=== PATIENT | female | born 1945 | race African-American/Black ===

== ENCOUNTER 2019-12-27 16:03 | Emergency (ER) | payer MEDICARE, MEDICAID ==
[~2019-12-27] VITALS: Ht 160 cm; Wt 95.7 kg
[~2019-12-27 16:03] MED LIST: ACET325T9 PO; ALBU2.5V8 INH; APIX2.5T PO; APIX5TAB PO; ASPI81TA59 PO; ATORVASTATIN CA80 MG PO; BUDE10.2 IH; CEFP200T PO; CITA20TA9 PO; DILT120C99 PO; ENAL20TA PO; FAMO20TA5 PO; FURO40TA4 PO; FURO80TA72 PO; GABA300C18 PO; GABA600T7 PO; HYDR-2868 PO; HYDR-3164 PO; INSU100C SQ; INSU100I51 SQ; INSU100V11 SQ; ISOS1TAB2 PO; ISOS30TA19 PO; LISI10TA2 PO; LOSA100T14 PO; METO-247 PO; METO50TA6 PO; NICO1PAT21 TP; NPH,100V SQ; ONDA4TAB7 PO; SUCR1TAB35 PO; VIT1TABL71 PO
[2019-12-27 16:48] LABS: BASO % 1 % (0-3); EOS % 1 % (0-3); HEMATOCRIT 40.5 % (36.0-47.0); HEMOGLOBIN 13.3 g/dL (12.0-15.5); LYMPH # 1.7 x10^3/uL (1.0-4.8); LYMPH % 33 % (24-48); MEAN CORPUSCULAR HEMOGLOBIN 28 pg (25-35); MEAN CORPUSCULAR HGB CONC 33 g/dL (31-37); MEAN CORPUSCULAR VOLUME 85 fL (79-100); MONO # 0.8 x10^3/uL (0.0-1.1); MONO % 15 % (0-9); NEUT # 2.6 x10^3/uL (1.8-7.7); NEUT % 51 % (31-73); PLATELET COUNT 253 x10^3/uL (140-400); RED BLOOD COUNT 4.76 x10^6/uL (3.50-5.40); RED CELL DISTRIBUTION WIDTH 17.8 % (11.5-14.5); WHITE BLOOD COUNT 5.2 x10^3/uL (4.0-11.0)
[2019-12-27 17:05] LABS: CALCIUM 8.9 mg/dL (8.5-10.1); CREATININE 2.1 mg/dL (0.6-1.0); GFR 27.9; POTASSIUM 4.4 mmol/L (3.5-5.1)
--- NOTE | 2019-12-27 17:08 | RAD ---
Exam: CT head INDICATION: Confusion TECHNIQUE: Sequential axial images through the head were obtained without the administration of IV contrast. Comparisons: 09/12/2019 FINDINGS: No focal parenchymal lesion or hemorrhage is identified. There is no midline shift or sulcal effacement. Hypodensity in the periventricular white matter not significant changed from the prior exam. No acute vascular territory infarction is identified. Gates-white distinction is preserved. The ventricular system is within normal limits without compression hydrocephalus. The basal cisterns are well maintained. The visualized portions of the paranasal sinuses and mastoid air cells are well-pneumatized. No acute fractures. IMPRESSION: No acute intracranial abnormality. Moderate chronic small vessel ischemic change. Exposure: One or more of the following in the visualized dose reduction techniques were utilized for this examination: 1. Automated exposure control 2. Adjustment of the MA and/or KV according to patient size Use of iterative of reconstructive technique Electronically signed by: Ke Felton MD (12/27/2019 5:04 PM) [id number]
--- NOTE | 2019-12-27 17:09 | RAD ---
Exam: Chest one view INDICATION: Confusion TECHNIQUE: Frontal view of the chest Comparisons: 09/12/2019 FINDINGS: Sternotomy wires are noted. Heart is enlarged. Pulmonary vessels are within normal limits. Hazy opacities lungs bilaterally. No pleural effusion. IMPRESSION: Findings likely related to mild pulmonary edema. This is mildly improved when compared to prior study. Electronically signed by: Ke Felton MD (12/27/2019 5:06 PM) [id number]
[2019-12-27 17:10] LABS: ALBUMIN 3.3 g/dL (3.4-5.0); MAGNESIUM 1.9 mg/dL (1.8-2.4); TOTAL BILIRUBIN 0.7 mg/dL (0.2-1.0); TOTAL PROTEIN 6.6 g/dL (6.4-8.2)
[2019-12-27 17:14] LABS: CREATINE KINASE 57 U/L (26-192)
[2019-12-27 18:32] LABS: BILIRUBIN,URINE SMALL (NEG); CLARITY,URINE CLOUDY; COLOR,URINE AMBER; NITRITE,URINE NEGATIVE (NEG); PH,URINE 5.5 (<5.0-8.0); PROTEIN,URINE >=300 mg/dL (NEG-TRACE)
[2019-12-27 18:45] LABS: BACTERIA,URINE MANY /HPF (0-FEW); SQUAMOUS EPITHELIAL CELL,UR FEW /LPF
--- NOTE | 2019-12-27 18:49 | PHYS DOC ---
Past Medical History Past Medical History: A-Fib, CHF, COPD, Diabetes-Type II, Hypertension, Renal Failure, Other Additional Past Medical Histor: ESRD Past Surgical History: Other Additional Past Surgical Histo: TEMP DIALYSIS CATH R CHEST, LEFT ARM FISTULA Smoking Status: Former Smoker Alcohol Use: None Drug Use: None General Adult EDM: Chief Complaint: ALTERED MENTAL STATUS HPI: HPI: Patient is a 74 year old F who is brought in to our ER today for altered mental status. Per dialysis center pt arrived today confused and after her dialysis continued to show some confusion which they thought was abnormal so they called EMS. On arrival to ER pt is refusing to allow the nurse to start an IV and states she is fine. She is asking us to call her son who is her DPOA. Of note pt did not remember that she had just had dialysis. RNSheyla, called and spoke with pts son Steve, who reports that confusion is not uncommon for [place] and that he would like us to check things over but that this happens sometimes. Review of Systems: Review of Systems: Constitutional: Denies fever or chills. [] Eyes: Denies change in visual acuity. [] HENT: Denies nasal congestion or sore throat. [] Respiratory: Denies cough or shortness of breath. [] Cardiovascular: Denies chest pain or edema. [] GI: Denies abdominal pain, nausea, vomiting, bloody stools or diarrhea. [] : Denies dysuria. [] Musculoskeletal: Denies back pain or joint pain. [] Integument: Denies rash. [] Neurologic: Denies headache, focal weakness or sensory changes. [] Endocrine: Denies polyuria or polydipsia. [] Lymphatic: Denies swollen glands. [] Psychiatric: Denies depression or anxiety. [] Heart Score: Risk Factors: Risk Factors: DM, Current or recent (<one month) smoker, HTN, HLP, family history of CAD, obesity. Risk Scores: Score 0 - 3: 2.5% MACE over next 6 weeks - Discharge Home Score 4 - 6: 20.3% MACE over next 6 weeks - Admit for Clinical Observation Score 7 - 10: 72.7% MACE over next 6 weeks - Early Invasive Strategies Allergies: Allergies: Allergies Coded Allergies Type Severity Reaction Last Updated Verified warfarin Allergy Intermediate 01/13/19 Yes Physical Exam: PE: Constitutional: Well developed, well nourished, no acute distress, non-toxic appearance. [] HENT: Normocephalic, atraumatic, bilateral external ears normal, oropharynx moist, no oral exudates, nose normal. [] Eyes: PERRLA, EOMI, conjunctiva normal, no discharge. [] Neck: Normal range of motion, no tenderness, supple, no stridor. [] Cardiovascular:Heart rate regular rhythm, no murmur [] Lungs & Thorax: Bilateral breath sounds clear to auscultation [] Abdomen: Bowel sounds normal, soft, no tenderness, no masses, no pulsatile masses. [] Skin: Warm, dry, no erythema, no rash. [] Back: No tenderness, no CVA tenderness. [] Extremities: No tenderness, no cyanosis, no clubbing, ROM intact, no edema. [] Neurologic: Alert and oriented X 3, normal motor function, normal sensory function, no focal deficits noted. [] Psychologic: Affect normal, judgement normal, mood normal. [] Current Patient Data: Labs: Laboratory Tests Test 12/27/19 16:40 White Blood Count 5.2 x10^3/uL (4.0-11.0) Red Blood Count 4.76 x10^6/uL (3.50-5.40) Hemoglobin 13.3 g/dL (12.0-15.5) Hematocrit 40.5 % (36.0-47.0) Mean Corpuscular Volume 85 fL (79-100) Mean Corpuscular Hemoglobin 28 pg (25-35) Mean Corpuscular Hemoglobin Concent 33 g/dL (31-37) Red Cell Distribution Width 17.8 % (11.5-14.5) H Platelet Count 253 x10^3/uL (140-400) Neutrophils (%) (Auto) 51 % (31-73) Lymphocytes (%) (Auto) 33 % (24-48) Monocytes (%) (Auto) 15 % (0-9) H Eosinophils (%) (Auto) 1 % (0-3) Basophils (%) (Auto) 1 % (0-3) Neutrophils # (Auto) 2.6 x10^3/uL (1.8-7.7) Lymphocytes # (Auto) 1.7 x10^3/uL (1.0-4.8) Monocytes # (Auto) 0.8 x10^3/uL (0.0-1.1) Eosinophils # (Auto) 0.0 x10^3/uL (0.0-0.7) Basophils # (Auto) 0.0 x10^3/uL (0.0-0.2) Sodium Level 138 mmol/L (136-145) Potassium Level 4.4 mmol/L (3.5-5.1) Chloride Level 100 mmol/L (98-107) Carbon Dioxide Level 26 mmol/L (21-32) Anion Gap 12 (6-14) Blood Urea Nitrogen 17 mg/dL (7-20) Creatinine 2.1 mg/dL (0.6-1.0) H Estimated GFR (Cockcroft-Gault) 27.9 BUN/Creatinine Ratio 8 (6-20) Glucose Level 125 mg/dL (70-99) H Calcium Level 8.9 mg/dL (8.5-10.1) Magnesium Level 1.9 mg/dL (1.8-2.4) Total Bilirubin 0.7 mg/dL (0.2-1.0) Aspartate Amino Transferase (AST) 25 U/L (15-37) Alanine Aminotransferase (ALT) 24 U/L (14-59) Alkaline Phosphatase 118 U/L (46-116) H Creatine Kinase 57 U/L (26-192) Creatine Kinase MB (Mass) 1.1 ng/mL (0.0-3.6) Creatine Kinase MB Relative Index % (0-4) Troponin I Quantitative < 0.017 ng/mL (0.000-0.055) BR-Gpb-W-Type Natriuretic Peptide > 33391 pg/mL (0-124) H Total Protein 6.6 g/dL (6.4-8.2) Albumin 3.3 g/dL (3.4-5.0) L Albumin/Globulin Ratio 1.0 (1.0-1.7) Laboratory Tests 12/27/19 16:40 Laboratory Tests 12/27/19 16:40 Vital Signs: Vital Signs Date Time Temp Pulse Resp B/P (MAP) Pulse Ox O2 Delivery O2 Flow Rate FiO2 12/27/19 16:19 98.3 94 18 192/109 (136) 99 Room Air 98.3 EKG: EKG: [] Radiology/Procedures: Radiology/Procedures: [] Course & Med Decision Making: Course & Med Decision Making Pertinent Labs and Imaging studies reviewed. (See chart for details) Pt's labs and imaging reassuring. She continues to be pleasantly confused but not entirely sure this is different from baseline based on her son Steve's report. I did call Steve and left a voicemail at [phone] letting him know I would like to go over the test results and possibly get her home. Will wait for his call back since he is her DPOA. Pt has very mild UTI, but doubt this is of clinical significance. Dragon Disclaimer: Dragon Disclaimer: This electronic medical record was generated, in whole or in part, using a voice recognition dictation system. Departure Departure Impression: Primary Impression: UTI (urinary tract infection) Additional Impression: Confusion Disposition: 01 HOME, SELF-CARE Condition: IMPROVED Referrals: FABIENNE CALDERON (PCP) Patient Instructions: Confusion, Urinary Tract Infection, [id number] Additional Instructions: The tests done today in the ER were reassuring. There is a mild urinary tract infection that we will treat. We spoke with pt's son, Steve, who is in agreement with patient going back home to her facility per her request. Please have her return with any worsening symptoms. Scripts Cephalexin (KEFLEX) 500 Mg Capsule 1 CAP PO BID for 5 Days, #10 CAP 0 Refills Prov: BALDO KLEIN 12/27/19 BALDO KLEIN Dec 27, 2019 18:49
[2019-12-27] MEDS ORDERED: cefTRIAXone IV Push 1 GM VIAL. IVP ONE (19:00)
[2019-12-27] MEDS ORDERED: CEPH-264 PO (20:18)
[2019-12-27 22:30] VITALS: BP 164/100
--- NOTE | 2019-12-27 22:34 | EKG ---
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
== END 2019-12-27 22:44 | disposition home or self-care (01) ==
LOC: ER 16:03
DX: N39.0 Urinary tract infection, site not specified (principal); R41.82 Altered mental status, unspecified; I48.20 Chronic atrial fibrillation, unspecified; I13.2 Hypertensive heart and chronic kidney disease with heart failure and with stage 5 chronic kidney disease, or end stage renal disease; E11.22 Type 2 diabetes mellitus with diabetic chronic kidney disease; N18.6 End stage renal disease; I50.9 Heart failure, unspecified; Z87.891 Personal history of nicotine dependence; Z98.890 Other specified postprocedural states; Z88.8 Allergy status to other drugs, medicaments and biological substances
CPT/HCPCS: 36415; 70450; 71045; 80053; 81001; 82553; 83735; 83880; 84484; 85025; 87086; 93005; 96374; 99285; J0696

== ENCOUNTER 2019-12-29 11:20 | Inpatient (IN) | payer MEDICARE, MEDICAID ==
[~2019-12-29] VITALS: Ht 172.7 cm; Wt 82.1 kg
[~2019-12-29 11:20] MED LIST changes: +CEPH-264 PO; -ENAL20TA PO; +ENAL20TA10 PO
[2019-12-29 11:43] LABS: BASO % 0 % (0-3); EOS % 0 % (0-3); HEMATOCRIT 40.9 % (36.0-47.0); HEMOGLOBIN 13.4 g/dL (12.0-15.5); LYMPH # 0.9 x10^3/uL (1.0-4.8); LYMPH % 14 % (24-48); MEAN CORPUSCULAR HEMOGLOBIN 28 pg (25-35); MEAN CORPUSCULAR HGB CONC 33 g/dL (31-37); MEAN CORPUSCULAR VOLUME 85 fL (79-100); MONO # 0.6 x10^3/uL (0.0-1.1); MONO % 10 % (0-9); NEUT # 4.5 x10^3/uL (1.8-7.7); NEUT % 75 % (31-73); PLATELET COUNT 267 x10^3/uL (140-400); RED CELL DISTRIBUTION WIDTH 17.7 % (11.5-14.5)
--- NOTE | 2019-12-29 11:46 | PHYS DOC ---
Past Medical History Past Medical History: A-Fib, CHF, COPD, Diabetes-Type II, Hypertension, Renal Failure, Other Additional Past Medical Histor: ESRD Past Surgical History: Other Additional Past Surgical Histo: TEMP DIALYSIS CATH R CHEST, LEFT ARM FISTULA Smoking Status: Former Smoker Alcohol Use: None Drug Use: None General Adult EDM: Chief Complaint: ALTERED MENTAL STATUS HPI: HPI: Patient is a 74 year old female who presents with here per EMS by medical [facility] who states that after patient's December 26 visit she remains confused and altered. EMS who run the patient frequently in the nurses here in the ED who had the patient on December 26 states that this is her baseline. On December 26 she was evaluated for altered mental status and found to have a UTI. Her CT head and c hest x-ray showed no acute findings. Patient does get dialysis on Tuesdays, and Saturdays. Upon the [employer]ISHABLE [employer]REIGHT INSPECTOR that saw her on December 26 and nursing staff that spoke to the son the son states that this is her normal baseline and that she tends to get confused from time to time but this is normal for her. Patient seemed to be talking to nursing staff although she was only oriented to herself, today she does not speak but looks at me and follows me around the room. Patient was discharged home with Keflex. The medical [facility] states that she has not further decline but she is still acting the same as they sent her on December 26. Patient has a history of end-stage renal disease, cellulitis, renal dialysis, generalized weakness, cognitive communication deficit, COPD, atrial fib, diabetes, CHF, heart disease, hyperlipidemia, depression, encephalopathy, hypertension, UTI. Patient is resting comfortably in the bed and is alert. Review of Systems: Review of Systems: Constitutional: Denies fever or chills. [] Eyes: Denies change in visual acuity. [] HENT: Denies nasal congestion or sore throat. [] Respiratory: Denies cough or shortness of breath. [] Cardiovascular: Denies chest pain or edema. [] GI: Denies abdominal pain, nausea, vomiting, bloody stools or diarrhea. [] : Denies dysuria. [] Musculoskeletal: Denies back pain or joint pain. [] Integument: Denies rash. [] Neurologic: Denies headache, focal weakness or sensory changes. AMS [] Endocrine: Denies polyuria or polydipsia. [] Lymphatic: Denies swollen glands. [] Psychiatric: Denies depression or anxiety. [] Heart Score: Risk Factors: Risk Factors: DM, Current or recent (<one month) smoker, HTN, HLP, family history of CAD, obesity. Risk Scores: Score 0 - 3: 2.5% MACE over next 6 weeks - Discharge Home Score 4 - 6: 20.3% MACE over next 6 weeks - Admit for Clinical Observation Score 7 - 10: 72.7% MACE over next 6 weeks - Early Invasive Strategies Allergies: Allergies: Allergies Coded Allergies Type Severity Reaction Last Updated Verified warfarin Allergy Intermediate 01/13/19 Yes Physical Exam: PE: Constitutional: Well developed, well nourished, no acute distress, non-toxic appearance. [] HENT: Normocephalic, atraumatic, bilateral external ears normal, oropharynx moist, no oral exudates, nose normal. [] Eyes: PERRLA, EOMI, conjunctiva normal, no discharge. [] Neck: Normal range of motion, no tenderness, supple, no stridor. [] Cardiovascular:Heart rate regular rhythm, no murmur [] Lungs & Thorax: Bilateral breath sounds clear to auscultation [] Abdomen: Bowel sounds normal, soft, no tenderness, no masses, no pulsatile masses. [] Skin: Warm, dry, no erythema, no rash. [] Back: No tenderness, no CVA tenderness. [] Extremities: No tenderness, no cyanosis, no clubbing, ROM intact, no edema. [] Neurologic: Alert and oriented X 1, normal motor function, normal sensory function, no focal deficits noted. [] Psychologic: Affect normal, judgement normal, mood normal. [] EKG: EK and read by Dr Bhagat as IRREGULAR RHYTHM and no STEMI[] Radiology/Procedures: Radiology/Procedures: [] Impression: [facility] [address] [place], [place] [id number] IMAGING REPORT Signed PATIENT: MARK HERNÁNDEZ ACCOUNT: [id number] : 1945 LOCATION: ER AGE: 74 SEX: F EXAM STATUS: REG ER ORD. 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 Mild prominent appearing bilateral interstitial lung markings likely mild congestive changes similar to prior exam. Sternotomy wires identified. IMPRESSION: 1. Mild congestive changes unchanged since prior exam. Electronically signed by: Bud Zepeda MD (12/29/2019 12:13 PM) [id number] DICTATED and SIGNED BY: BUD ZEPEDA MD DATE: 12/29/19 1213 Course & Med Decision Making: Course & Med Decision Making Pertinent Labs and Imaging studies reviewed. (See chart for details) No extremity edema lungs are clear to auscultation all lobes. Vital signs within normal limits. Afebrile. See HPI. I will reevaluate the patient and then DPOA. With palpation over chest and abdomen there is no pain response from the patient. PERRLA. Patient's troponin is elevated at 0.068, BUN is 41 and creatinine is 4.1, potassium 5.5. These are all increases from her visit on December 26. Chest x-ray is on changed with some mild cardiovascular crowding. I have spoken to Dr Gonzales and patient is admitted and will receive dialysis. Patient is admitted to Dr Adams. [] Shelley Disclaimer: Shelley Disclaimer: This electronic medical record was generated, in whole or in part, using a voice recognition dictation system. Departure Departure Impression: Primary Impression: Acute on chronic renal failure Qualified Codes: N17.9 - Acute kidney failure, unspecified; N18.9 - Chronic kidney disease, unspecified Additional Impression: AMS (altered mental status) Qualified Codes: R41.82 - Altered mental status, unspecified Disposition: ADMITTED INPATIENT Admitting Physician: HIMS Condition: STABLE Referrals: FABIENNE CALDERON (PCP) Justicifation of Admission Dx: Justifications for Admission: Justification of Admission Dx: Yes (ams, renal failure) JENNIFFER LÓPEZ APRN Dec 29, 2019 11:46
[2019-12-29 11:51] LABS: PROTHROMBIN TIME PATIENT 18.7 SEC (11.7-14.0)
[2019-12-29 11:53] LABS: CALCIUM 9.1 mg/dL (8.5-10.1); CREATININE 4.1 mg/dL (0.6-1.0); GFR 12.9; POTASSIUM 5.5 mmol/L (3.5-5.1)
[2019-12-29 11:58] LABS: ALBUMIN 3.1 g/dL (3.4-5.0); ALBUMIN/GLOBULIN RATIO 0.9 (1.0-1.7); TOTAL BILIRUBIN 1.4 mg/dL (0.2-1.0); TOTAL PROTEIN 6.7 g/dL (6.4-8.2)
[2019-12-29 12:06] LABS: COLOR,URINE BROWN
[2019-12-29 12:07] LABS: CLARITY,URINE TURBID
[2019-12-29 12:12] LABS: BACTERIA,URINE MANY /HPF (0-FEW); SQUAMOUS EPITHELIAL CELL,UR MOD /LPF; WBC,URINE TNTC /HPF (0-4)
--- NOTE | 2019-12-29 12:16 | RAD ---
EXAM: CHEST 1 VIEW History: Altered mental status COMPARISON: 12/27/2019 TECHNIQUE: Single portable radiograph of the chest FINDINGS: Moderate cardiomegaly. Mild prominent appearing bilateral interstitial lung markings likely mild congestive changes similar to prior exam. Sternotomy wires identified. IMPRESSION: 1. Mild congestive changes unchanged since prior exam. Electronically signed by: Bud Zepeda MD (12/29/2019 12:13 PM) [id number]
[2019-12-29] MEDS ORDERED: cefTRIAXone IV Push 1 GM VIAL. IVP ONE (13:00)
[2019-12-29] MEDS ORDERED: IV NORMAL SALINE 1000ML BAG 1,000 ML IV PRN ×2 (14:54)
[2019-12-29] MEDS ORDERED: DIALYSIS PATIENT. MC PRN ×2 (15:00)
[2019-12-29] MEDS ORDERED: ALBUMIN HUMAN 25% 200 ML IV PRN (15:00)
[2019-12-29] MEDS ORDERED: APIX2.5T PO ×2 (16:43)
[2019-12-29] MEDS ORDERED: METO-247 PO (16:43)
[2019-12-29] MEDS ORDERED: ASPI-630 PO (16:43)
[2019-12-29] MEDS ORDERED: ISOS1TAB2 PO ×2 (16:43)
--- NOTE | 2019-12-29 18:02 | HP ---
ADMIT DATE: 12/29/2019 CHIEF COMPLAINT: Mental status change. HISTORY OF PRESENT ILLNESS: The patient is a pleasant 74-year-old female who has been on dialysis for about a year. She resides at [facility]. Apparently, she developed mental status change. She has been noted to have UTI in the recent past and today, her urine is showing too numerous to count white cells. She also has an INR of 1.6 and a potassium of 5.5, BUN of 41, and creatinine of 4.1. Her BNP level of 35,000. We are going to admit the patient and get her dialyzed and consult Nephrology and Cardiology. PAST MEDICAL HISTORY: End-stage renal disease, CHF, AFib, diabetes, hypertension, temporary dialysis catheter, left arm fistula, previous tobacco abuse, chronic anticoagulation. ALLERGIES: COUMADIN. FAMILY HISTORY: Diabetes. SOCIAL HISTORY: I think she lives in a long-term. She does not drink, smoke or take drugs. MEDICATIONS: Reviewed, please refer to the MRAD. REVIEW OF SYSTEMS: Unable to obtain. PHYSICAL EXAMINATION: VITALS: Within normal limits and are stable. GENERAL: No apparent distress. Alert and oriented. HEENT: Normal cephalic atraumatic, external auditory canals are patent EYES: Extraocular muscles are intact, pupils are equally round and reactive to light and accommodation MUSCULOSKELETAL: Well developed, well nourished, good range of motion ENDOCRINE: No thyromegaly was palpated LYMPHATICS: No cervical chain or axillary nodes were noted HEMATOPOIETIC: No bruising NECK: Supple, no JVD, no thyromegaly was noted. LUNGS: Clear to auscultation in all lung gama without rhonchi or wheezing. HEART: RRR, S1, S2 present. Peripheral pulses intact, no obvious murmurs were noted. ABDOMEN: Soft, nontender. Positive bowel sounds no organomegaly, normal bowel sounds. EXTREMITIES: Without any cyanosis, clubbing, or edema. Pedal pulses intact, Homans sign is negative. NEUROLOGIC: She is obtunded. PSYCHIATRIC: Normal affect, normal mood. Stable. SKIN: No ulcerations or rashes, good skin turgor, no jaundice. VASCULAR: Good capillary refill, neurovascular bundle appears to be intact. ASSESSMENT AND PLAN: Mental status change, suspect metabolic encephalopathy with acute on chronic systolic and diastolic heart failure, chronic renal failure. We will give her IV antibiotics. Consult Nephrology. Consult Cardiology. Consult Infectious Disease. Home meds. DVT prophylaxis. Full code. Prognosis guarded. GEORGIE VARMA DO DR: HARSHAL/david JOB#: [id number] / [id number]
[2019-12-29 19:10] VITALS: BP 165/91
[2019-12-29] MEDS: AMINO AC 3%/ELECTROLYTE/GLYCER 1,000 ML IV SCH (19:55)
--- NOTE | 2019-12-29 21:33 | PDOC2 ---
CONSULT Date of Consult Date of Consult DATE: 12/29/19 TIME: 1300 Source Source: Chart review History of Present Illness Reason for Visit: Pt seen in the ER - History obtained from ER provider 07/31 to confusion AMS(?baseline) Patient is a 74 year old female with ESR , cognitive communication deficit, COPD, atrial fib, diabetes, CHF, heart disease, encephalopathy who presented per EMS from [facility] with confusion and altered MS-since seen on December 26 . On December 26 she was evaluated for altered mental status and found to have a UTI. Patient was discharged home with Keflex.In the ER CT head and chest x-ray showed no acute findings.. The [facility] states that she has no further decline but she is still acting the same as they sent her on December 26.She appears comfortable with eyes closed , No shortness of breath . Past Medical History Cardiovascular: AFIB, CAD, CHF, HTN, Hyperlipidemia Pulmonary: Asthma, Bronchitis, COPD, Pneumonia, Other CENTRAL NERVOUS SYSTEM: TIA GI: Other Heme/Onc: Anemia NOS Hepatobiliary: No pertinent hx Psych: Anxiety, Depression Musculoskeletal: Osteoarthritis Rheumatologic: No pertinent hx Infectious disease: Other Renal/: Chronic renal insuff, Urinary Incontinence Endocrine: Diabetes Past Surgical History Past Surgical History: CABG, Hysterectomy Family History Family History: Coronary Artery Disease Social History ALCOHOL: none Drugs: None Lives: Snf Current Problem List Problem List Problems Medical Problems: (1) Acute on chronic renal failure Status: Acute (2) AMS (altered mental status) Status: Acute Current Medications Current Medications Current Medications Ceftriaxone Sodium (Rocephin) 1 gm 1X ONCE IVP Last administered on 12/29/19at 13:00; Start 12/29/19 at 13:00; Stop 12/29/19 at 13:01; Status DC Sodium Chloride 1,000 ml @ 1,000 mls/hr Q1H PRN IV hypotension; Start 12/29/19 at 14:54; Stop 12/29/19 at 20:53; Status DC Albumin Human 200 ml @ 200 mls/hr 1X PRN PRN IV Hypotension; Start 12/29/19 at 15:00; Stop 12/29/19 at 20:59; Status DC Sodium Chloride 1,000 ml @ 400 mls/hr Q2H30M PRN IV PATENCY; Start 12/29/19 at 14:54; Stop 12/30/19 at 02:53 Info (PHARMACY MONITORING -- do not chart) 1 each PRN DAILY PRN MC SEE C OMMENTS; Start 12/29/19 at 15:00; Status UNV Info (PHARMACY MONITORING -- do not chart) 1 each PRN DAILY PRN MC SEE COMMENTS; Start 12/29/19 at 15:00 Amino Acids/ Glycerin/ Electrolytes 1,000 ml @ 80 mls/hr [id number] IV Last administered on 12/29/19at 19:55; Start 12/29/19 at 20:00 Active Scripts Active Keflex (Cephalexin) 500 Mg Capsule 1 Cap PO BID 5 Days Reported Bidil Tablet (Isosorb Dinit/Hydralazine Hcl) 1 Each Tablet 1 Each PO SUMOWEFR Bidil Tablet (Isosorb Dinit/Hydralazine Hcl) 1 Each Tablet 1 Each PO HS Metoprolol Succinate ( Xl ) (Metoprolol Succinate) 100 Mg Tab.er.24h 1 Tab PO HS Eliquis (Apixaban) 2.5 Mg Tablet 2.5 Mg PO QMWF Eliquis (Apixaban) 2.5 Mg Tablet 2.5 Mg PO HS Aspirin 81 Mg Tab.chew 1 Tab PO HS Isosorbide Dinitrate 30 Mg Tablet 20 Mg PO TID Hydralazine Hcl 25 Mg Tablet 37.5 Mg PO TID Lisinopril 10 Mg Tablet 1 Tab PO DAILY Famotidine 20 Mg Tablet 20 Mg PO QODAY Take at bedtime every other day. Next dose: 09/22/2019 Gabapentin (Gabapentin) 300 Mg Capsule 300 Mg PO QTUTHSA Take after dialysis [place] 5-325 Tablet (Acetaminophen/Hydrocodone Bitart) 1 Each Tablet 1 Tab PO Q6HRS Novolin N Flexpen (Insulin NPH Human Isophane) 100 Unit/1 Ml Insuln.pen 10 Unit SQ BID Carafate (Sucralfate) 1 Gm Tablet 1 Tab PO QID 30 Days Children's Aspirin (Aspirin) 81 Mg Tab.chew 81 Mg PO DAILY Atorvastatin Calcium 80 Mg Tablet 1 Tab PO HS Celexa (Citalopram Hydrobromide) 20 Mg Tablet 1 Tab PO DAILY [facility] Rx Tablet (Vit B Cmplx 3/Fa/Vit C/Biotin) 1 Each Tablet 1 Each PO DAILY Symbicort 160-4.5 Mcg Inhaler (Budesonide/Formoterol Fumarate) 10.2 Gm Hfa.aer.ad 2 Puff IH BID Allergies Allergies: Coded Allergies: warfarin (Verified Allergy, Intermediate, 01/13/19) ROS Review of System Unable to obtain 2/2 AMS/baseline encephalopathy Physical Exam Physical Exam GENERAL: NAD HEENT: OM moist NECK: Supple, no JVD. LUNGS: Clear bilaterally. Diminished breath sounds at the bases. HEART: S1, S2 Systolic murmur at left sternal border. ABDOMEN: Soft, EXTREMITIES: No LE edema NEUROLOGIC: AMS No Yin Vital Signs Vital Signs Date Time Temp Pulse Resp B/P (MAP) Pulse Ox O2 Delivery O2 Flow Rate FiO2 12/29/19 19:10 98.3 79 16 165/91 (115) 100 Nasal Cannula 2.0 98.3 Assessment & Plan ESRD - On HD TTS Dialysis today , Discussed treament plan with Dn UTI- treatment per primary Mental status change- suspect metabolic encephalopathy Chronic systolic and diastolic heart failure- currently compensated clinically Anemia, chronic- stable Labs Labs Laboratory Tests Test 12/29/19 11:32 12/29/19 11:50 12/29/19 20:12 White Blood Count 6.0 x10^3/uL (4.0-11.0) Red Blood Count 4.80 x10^6/uL (3.50-5.40) Hemoglobin 13.4 g/dL (12.0-15.5) Hematocrit 40.9 % (36.0-47.0) Mean Corpuscular Volume 85 fL (79-100) Mean Corpuscular Hemoglobin 28 pg (25-35) Mean Corpuscular Hemoglobin Concent 33 g/dL (31-37) Red Cell Distribution Width 17.7 % (11.5-14.5) Platelet Count 267 x10^3/uL (140-400) Neutrophils (%) (Auto) 75 % (31-73) Lymphocytes (%) (Auto) 14 % (24-48) Monocytes (%) (Auto) 10 % (0-9) Eosinophils (%) (Auto) 0 % (0-3) Basophils (%) (Auto) 0 % (0-3) Neutrophils # (Auto) 4.5 x10^3/uL (1.8-7.7) Lymphocytes # (Auto) 0.9 x10^3/uL (1.0-4.8) Monocytes # (Auto) 0.6 x10^3/uL (0.0-1.1) Eosinophils # (Auto) 0.0 x10^3/uL (0.0-0.7) Basophils # (Auto) 0.0 x10^3/uL (0.0-0.2) Prothrombin Time 18.7 SEC (11.7-14.0) Prothromb Time International Ratio 1.6 (0.8-1.1) Sodium Level 136 mmol/L (136-145) Potassium Level 5.5 mmol/L (3.5-5.1) Chloride Level 100 mmol/L (98-107) Carbon Dioxide Level 19 mmol/L (21-32) Anion Gap 17 (6-14) Blood Urea Nitrogen 41 mg/dL (7-20) Creatinine 4.1 mg/dL (0.6-1.0) Estimated GFR (Cockcroft-Gault) 12.9 BUN/Creatinine Ratio 10 (6-20) Glucose Level 221 mg/dL (70-99) Calcium Level 9.1 mg/dL (8.5-10.1) Total Bilirubin 1.4 mg/dL (0.2-1.0) Aspartate Amino Transf (AST/SGOT) 27 U/L (15-37) Alanine Aminotransferase (ALT/SGPT) 28 U/L (14-59) Alkaline Phosphatase 125 U/L (46-116) Troponin I Quantitative 0.068 ng/mL (0.000-0.055) TA-Lzq-J-Type Natriuretic Peptide > 24949 pg/mL (0-124) Total Protein 6.7 g/dL (6.4-8.2) Albumin 3.1 g/dL (3.4-5.0) Albumin/Globulin Ratio 0.9 (1.0-1.7) Urine Collection Type Unknown Urine Color Brown Urine Clarity Turbid Urine pH (<5.0-8.0) Urine Specific [place] (1.000-1.030) Urine Protein mg/dL (NEG-TRACE) Urine Glucose (UA) mg/dL (NEG) Urine Ketones (Stick) mg/dL (NEG) Urine Blood (NEG) Urine Nitrite (NEG) Urine Bilirubin (NEG) Urine Urobilinogen Dipstick mg/dL (0.2 mg/dL) Urine Leukocyte Esterase (NEG) Urine RBC 3-5 /HPF (0-2) Urine WBC Tntc /HPF (0-4) Urine Squamous Epithelial Cells Mod /LPF Urine Bacteria Many /HPF (0-FEW) Glucose (Fingerstick) 156 mg/dL (70-99) Laboratory Tests Test 12/29/19 11:32 12/29/19 11:50 12/29/19 20:12 White Blood Count 6.0 x10^3/uL (4.0-11.0) Red Blood Count 4.80 x10^6/uL (3.50-5.40) Hemoglobin 13.4 g/dL (12.0-15.5) Hematocrit 40.9 % (36.0-47.0) Mean Corpuscular Volume 85 fL (79-100) Mean Corpuscular Hemoglobin 28 pg (25-35) Mean Corpuscular Hemoglobin Concent 33 g/dL (31-37) Red Cell Distribution Width 17.7 % (11.5-14.5) Platelet Count 267 x10^3/uL (140-400) Neutrophils (%) (Auto) 75 % (31-73) Lymphocytes (%) (Auto) 14 % (24-48) Monocytes (%) (Auto) 10 % (0-9) Eosinophils (%) (Auto) 0 % (0-3) Basophils (%) (Auto) 0 % (0-3) Neutrophils # (Auto) 4.5 x10^3/uL (1.8-7.7) Lymphocytes # (Auto) 0.9 x10^3/uL (1.0-4.8) Monocytes # (Auto) 0.6 x10^3/uL (0.0-1.1) Eosinophils # (Auto) 0.0 x10^3/uL (0.0-0.7) Basophils # (Auto) 0.0 x10^3/uL (0.0-0.2) Prothrombin Time 18.7 SEC (11.7-14.0) Prothromb Time International Ratio 1.6 (0.8-1.1) Sodium Level 136 mmol/L (136-145) Potassium Level 5.5 mmol/L (3.5-5.1) Chloride Level 100 mmol/L (98-107) Carbon Dioxide Level 19 mmol/L (21-32) Anion Gap 17 (6-14) Blood Urea Nitrogen 41 mg/dL (7-20) Creatinine 4.1 mg/dL (0.6-1.0) Estimated GFR (Cockcroft-Gault) 12.9 BUN/Creatinine Ratio 10 (6-20) Glucose Level 221 mg/dL (70-99) Calcium Level 9.1 mg/dL (8.5-10.1) Total Bilirubin 1.4 mg/dL (0.2-1.0) Aspartate Amino Transf (AST/SGOT) 27 U/L (15-37) Alanine Aminotransferase (ALT/SGPT) 28 U/L (14-59) Alkaline Phosphatase 125 U/L (46-116) Troponin I Quantitative 0.068 ng/mL (0.000-0.055) XK-Ttn-Q-Type Natriuretic Peptide > 02810 pg/mL (0-124) Total Protein 6.7 g/dL (6.4-8.2) Albumin 3.1 g/dL (3.4-5.0) Albumin/Globulin Ratio 0.9 (1.0-1.7) Urine Collection Type Unknown Urine Color Brown Urine Clarity Turbid Urine pH (<5.0-8.0) Urine Specific [place] (1.000-1.030) Urine Protein mg/dL (NEG-TRACE) Urine Glucose (UA) mg/dL (NEG) Urine Ketones (Stick) mg/dL (NEG) Urine Blood (NEG) Urine Nitrite (NEG) Urine Bilirubin (NEG) Urine Urobilinogen Dipstick mg/dL (0.2 mg/dL) Urine Leukocyte Esterase (NEG) Urine RBC 3-5 /HPF (0-2) Urine WBC Tntc /HPF (0-4) Urine Squamous Epithelial Cells Mod /LPF Urine Bacteria Many /HPF (0-FEW) Glucose (Fingerstick) 156 mg/dL (70-99) Review All relevant outside records, renal labs, imaging studies, telemetry/EKG's were reviewed. Images Images Moderate cardiomegaly. Mild prominent appearing bilateral interstitial lung markings likely mild congestive changes similar to prior exam. Sternotomy wires identified. IMPRESSION: 1. Mild congestive changes unchanged since prior exam. RAS LONG MD Dec 29, 2019 21:33
[2019-12-29 22:06] VITALS: BP 154/94
[2019-12-30 02:06] VITALS: BP 165/87
[2019-12-30] MEDS: AMINO AC 3%/ELECTROLYTE/GLYCER 1,000 ML IV SCH ×2 (06:39→23:02)
[2019-12-30 07:00] VITALS: BP 162/95
[2019-12-30 09:17] LABS: BASO # 0.1 x10^3/uL (0.0-0.2); BASO % 1 % (0-3); EOS % 0 % (0-3); HEMATOCRIT 40.5 % (36.0-47.0); HEMOGLOBIN 13.1 g/dL (12.0-15.5); LYMPH # 1.4 x10^3/uL (1.0-4.8); LYMPH % 22 % (24-48); MEAN CORPUSCULAR HEMOGLOBIN 28 pg (25-35); MEAN CORPUSCULAR HGB CONC 32 g/dL (31-37); MEAN CORPUSCULAR VOLUME 85 fL (79-100); MONO # 0.9 x10^3/uL (0.0-1.1); MONO % 14 % (0-9); NEUT # 4.1 x10^3/uL (1.8-7.7); NEUT % 63 % (31-73); PLATELET COUNT 235 x10^3/uL (140-400); RED BLOOD COUNT 4.75 x10^6/uL (3.50-5.40); RED CELL DISTRIBUTION WIDTH 18.1 % (11.5-14.5); WHITE BLOOD COUNT 6.5 x10^3/uL (4.0-11.0)
[2019-12-30 09:39] LABS: ALBUMIN 2.9 g/dL (3.4-5.0); ALBUMIN/GLOBULIN RATIO 0.9 (1.0-1.7); CREATININE 3.4 mg/dL (0.6-1.0); POTASSIUM 4.6 mmol/L (3.5-5.1); TOTAL BILIRUBIN 0.7 mg/dL (0.2-1.0)
--- NOTE | 2019-12-30 09:54 | PDOC ---
Infectious Disease Note Vital Sign Vital Signs Vital Signs Date Time Temp Pulse Resp B/P (MAP) Pulse Ox O2 Delivery O2 Flow Rate FiO2 12/30/19 07:00 98.0 93 16 162/95 (117) 99 Nasal Cannula 2.0 98.0 Labs Lab Laboratory Tests Test 12/29/19 11:32 12/29/19 11:50 12/29/19 20:12 12/30/19 00:27 White Blood Count 6.0 x10^3/uL (4.0-11.0) Red Blood Count 4.80 x10^6/uL (3.50-5.40) Hemoglobin 13.4 g/dL (12.0-15.5) Hematocrit 40.9 % (36.0-47.0) Mean Corpuscular Volume 85 fL (79-100) Mean Corpuscular Hemoglobin 28 pg (25-35) Mean Corpuscular Hemoglobin Concent 33 g/dL (31-37) Red Cell Distribution Width 17.7 % (11.5-14.5) Platelet Count 267 x10^3/uL (140-400) Neutrophils (%) (Auto) 75 % (31-73) Lymphocytes (%) (Auto) 14 % (24-48) Monocytes (%) (Auto) 10 % (0-9) Eosinophils (%) (Auto) 0 % (0-3) Basophils (%) (Auto) 0 % (0-3) Neutrophils # (Auto) 4.5 x10^3/uL (1.8-7.7) Lymphocytes # (Auto) 0.9 x10^3/uL (1.0-4.8) Monocytes # (Auto) 0.6 x10^3/uL (0.0-1.1) Eosinophils # (Auto) 0.0 x10^3/uL (0.0-0.7) Basophils # (Auto) 0.0 x10^3/uL (0.0-0.2) Prothrombin Time 18.7 SEC (11.7-14.0) Prothromb Time International Ratio 1.6 (0.8-1.1) Sodium Level 136 mmol/L (136-145) Potassium Level 5.5 mmol/L (3.5-5.1) Chloride Level 100 mmol/L (98-107) Carbon Dioxide Level 19 mmol/L (21-32) Anion Gap 17 (6-14) Blood Urea Nitrogen 41 mg/dL (7-20) Creatinine 4.1 mg/dL (0.6-1.0) Estimated GFR (Cockcroft-Gault) 12.9 BUN/Creatinine Ratio 10 (6-20) Glucose Level 221 mg/dL (70-99) Calcium Level 9.1 mg/dL (8.5-10.1) Total Bilirubin 1.4 mg/dL (0.2-1.0) Aspartate Amino Transf (AST/SGOT) 27 U/L (15-37) Alanine Aminotransferase (ALT/SGPT) 28 U/L (14-59) Alkaline Phosphatase 125 U/L (46-116) Troponin I Quantitative 0.068 ng/mL (0.000-0.055) IR-Hzq-V-Type Natriuretic Peptide > 70462 pg/mL (0-124) Total Protein 6.7 g/dL (6.4-8.2) Albumin 3.1 g/dL (3.4-5.0) Albumin/Globulin Ratio 0.9 (1.0-1.7) Urine Collection Type Unknown Urine Color Brown Urine Clarity Turbid Urine pH (<5.0-8.0) Urine Specific [place] (1.000-1.030) Urine Protein mg/dL (NEG-TRACE) Urine Glucose (UA) mg/dL (NEG) Urine Ketones (Stick) mg/dL (NEG) Urine Blood (NEG) Urine Nitrite (NEG) Urine Bilirubin (NEG) Urine Urobilinogen Dipstick mg/dL (0.2 mg/dL) Urine Leukocyte Esterase (NEG) Urine RBC 3-5 /HPF (0-2) Urine WBC Tntc /HPF (0-4) Urine Squamous Epithelial Cells Mod /LPF Urine Bacteria Many /HPF (0-FEW) Glucose (Fingerstick) 156 mg/dL (70-99) 187 mg/dL (70-99) Test 12/30/19 07:28 Glucose (Fingerstick) 181 mg/dL (70-99) Objective Assessment Encephalopathy. According to the records and nursing staff, patient is normally able to talk some and follow commands at baseline. She is know to have periods of confusion that are not unusual for her. E. coli UTI from 12/26. susceptibilities still pending. -Seen in ER here and given dose Rocephin and Rx Keflex CKD on HD via AV graft Bioprosthetic AVR Chronic CHF Chronic afib COPD Hypertension Cognitive communication deficits h/o E. coli (amp-R) in urine Plan Plan of Care Continue Rocephin for now f/u UC from 12/26. Susceptibilities still pending. Bedside swallow study underway Maintain aspiration precautions D/w nursing Thank you [id number] Encephalopathy improved - d/w nursing - she responded to me nodding she was ok. and she ate lunch well Cont Rocephin With Strep Bovis - she will need GI eval URINE CULTURE Preliminary Preliminary GREATER THAN 100,000 CFU/ML GRAM NEGATIVE RODS on 12/29/19 at 0945 FINAL ID= [ESCHERICHIA COLI] GREATER THAN 100,000 CFU/MLGRAM POSITIVE COCCI on 12/30/19 at 1337 FINAL ID= [STREP (BOVIS) GALLOLYTICUS] Testing Performed by: [address] [address] For Inquires, the Physician may contact the Microbiology department at [phone] ESCHERICHIA COLI STREP (BOVIS) GALLOLYTICUS ANTIMICROBIAL SUSCEPTIBILITY Preliminary Comment NEG NEVA 56 ESCHERICHIA COLI ANTIBIOTIC RESULT INTERPRETATION AMPICILLIN/SULBACTAM 16/8 I AMIKACIN <=16 S AMPICILLIN >16 R AMOXICILLIN/K CLAVULANATE <=8/4 S AZTREONAM <=4 S CEFTRIAXONE <=1 S CEFTAZIDIME <=1 S CEFOTAXIME <=2 S CEFOXITIN <=8 S CIPROFLOXACIN <=0.25 S CEFEPIME <=2 S CEFUROXIME <=4 S CEFTAZIDIME/AVIBACTAM <=4 S ERTAPENEM <=0.5 S NITROFURANTOIN <=32 S GENTAMICIN <=2 S LEVOFLOXACIN <=0.5 S MEROPENEM <=1 S PIPERACILLIN/TAZOBACTAM <=8 S CONTINUED ON NEXT PAGE RUN DATE: 12/30/19 [facility] *LIVE* PAGE 2 RUN TIME: 1343 Specimen Inquiry SPEC: [id number] PATIENT: MARK HERNÁNDEZ [id number] (Continued) Procedure Result --- --------- ANTIMICROBIAL SUSCEPTIBILITY Preliminary (continued) TRIMETHOPRIM/SULFAMETHOXAZOLE <=0.5/9.5 S TETRACYCLINE <=4 S TOBRAMYCIN <=2 S Unless otherwise specified, Testing Performed by: Attending Co-Sign Attending Co-Sign The patient was seen and interviewed as well as examined at the bedside. The chart was reviewed. The case was discussed. Agree with the plan of care. SUBLETTE,STUART C BILINGUAL MEDICAL RECEPTIONIST Dec 30, 2019 09:54 JOSEPH ELLIOTT MD Dec 30, 2019 15:07
[2019-12-30 10:50] VITALS: BP 168/97
[2019-12-30] MEDS ORDERED: LISINOPRIL 10 MG TABLET PO SCH (11:00)
[2019-12-30] MEDS: BUDESONIDE 0.5 MG/2 ML NEBU. NEB SCH ×2 (11:44→19:12)
[2019-12-30] MEDS: ALBUTEROL SULFATE 2.5 MG/3 ML NEBU. NEB SCH ×2 (11:44→19:12)
--- NOTE | 2019-12-30 12:11 | PDOC ---
SUBJECTIVE ROS Stable, awake, tracks, Non verbal OBJECTIVE Vital Signs Vital Signs Date Time Temp Pulse Resp B/P (MAP) Pulse Ox O2 Delivery O2 Flow Rate FiO2 12/30/19 11:47 96 Nasal Cannula 2.0 12/30/19 10:50 97.6 95 16 168/97 (120) 97.6 I & 0 Intake and Output 12/30/19 07:00 Intake Total 0 ml Balance 0 ml Intake Oral 0 ml # Voids 1 PHYSICAL EXAM Physical Exam GENERAL: NAD HEENT: OM moist NECK: Supple, no JVD. LUNGS: Clear bilaterally. Diminished breath sounds at the bases. HEART: S1, S2 Systolic murmur at left sternal border. ABDOMEN: Soft, EXTREMITIES: No LE edema NEUROLOGIC: AMS No Yin DIAGNOSIS/ASSESSMENT Assessment & Plan ESRD - On HD TTS Dialyzed yesterday, currently no indication UTI- E. coli UTI from 12/26.ID managing Mental status change-/encephalopathy According to the records, patient is normally able to talk some and follow commands at baseline and feed herself ,have periods of confusion Chronic systolic and diastolic heart failure- currently compensated clinically Anemia, chronic- stable Bioprosthetic AVR Chronic afib COPD- On O2 Hypertension- antihypertensives Cognitive communication deficits h COMMENT/RELEVANT DATA Meds Current Medications Medications (Trade) Dose Ordered Sig/Crsitine Start Time Stop Time Status Last Admin Dose Admin Acetaminophen/ Hydrocodone Bitart (Lortab 5/325) 1 tab Q6HRS 12/30/19 11:00 Albumin Human 200 ml @ 200 mls/hr 1X PRN PRN 12/29/19 15:00 12/29/19 20:59 DC Albuterol Sulfate (Ventolin Neb Soln) 2.5 mg Q6HRS 12/30/19 12:00 12/30/19 11:44 2.5 MG Amino Acids/ Glycerin/ Electrolytes 1,000 ml @ 80 mls/hr [id number] 12/29/19 20:00 12/30/19 06:39 80 MLS/HR Aspirin (Aspirin Chewable) 81 mg DAILY 12/30/19 10:00 Atorvastatin Calcium (Lipitor) 80 mg QHS 12/30/19 21:00 Budesonide (Pulmicort) 0.5 mg RTBID 12/30/19 11:00 12/30/19 11:44 0.5 MG Ceftriaxone Sodium (Rocephin) 1 gm Q24H 12/30/19 10:00 Citalopram Hydrobromide (CeleXA) 20 mg DAILY 12/30/19 10:00 Famotidine (Pepcid) 20 mg QODAY 12/30/19 10:00 Gabapentin (Neurontin) 300 mg TuThSa 12/31/19 09:00 Hydralazine HCl (Apresoline) 37.5 mg TID 12/30/19 10:00 Info (PHARMACY MONITORING -- do not chart) 1 each PRN DAILY PRN 12/29/19 15:00 Insulin Glargine (Lantus Syringe) 10 unit BID 12/30/19 11:00 Lactobacillus Rhamnosus (Culturelle) 1 cap BID 12/30/19 21:00 Lisinopril (Prinivil) 10 mg DAILY 12/30/19 11:00 Metoprolol Succinate (Toprol Xl) 100 mg HS 12/30/19 21:00 Non-Formulary Medication (Budesonide/ Formoterol Fumarate (Symbicort 160-4.5 Mcg Inhaler)) 2 puff BID 12/30/19 21:00 UNV Non-Formulary Medication (Cephalexin (Keflex)) 1 cap BID 12/30/19 21:00 UNV Sodium Chloride 1,000 ml @ 400 mls/hr Q2H30M PRN 12/29/19 14:54 12/30/19 02:53 DC Sucralfate (Carafate) 1 gm QIDACHS 12/30/19 11:30 Lab Laboratory Tests Test 12/29/19 20:12 12/30/19 00:27 12/30/19 07:28 12/30/19 09:00 Glucose (Fingerstick) 156 mg/dL (70-99) 187 mg/dL (70-99) 181 mg/dL (70-99) White Blood Count 6.5 x10^3/uL (4.0-11.0) Red Blood Count 4.75 x10^6/uL (3.50-5.40) Hemoglobin 13.1 g/dL (12.0-15.5) Hematocrit 40.5 % (36.0-47.0) Mean Corpuscular Volume 85 fL (79-100) Mean Corpuscular Hemoglobin 28 pg (25-35) Mean Corpuscular Hemoglobin Concent 32 g/dL (31-37) Red Cell Distribution Width 18.1 % (11.5-14.5) Platelet Count 235 x10^3/uL (140-400) Neutrophils (%) (Auto) 63 % (31-73) Lymphocytes (%) (Auto) 22 % (24-48) Monocytes (%) (Auto) 14 % (0-9) Eosinophils (%) (Auto) 0 % (0-3) Basophils (%) (Auto) 1 % (0-3) Neutrophils # (Auto) 4.1 x10^3/uL (1.8-7.7) Lymphocytes # (Auto) 1.4 x10^3/uL (1.0-4.8) Monocytes # (Auto) 0.9 x10^3/uL (0.0-1.1) Eosinophils # (Auto) 0.0 x10^3/uL (0.0-0.7) Basophils # (Auto) 0.1 x10^3/uL (0.0-0.2) Sodium Level 136 mmol/L (136-145) Potassium Level 4.6 mmol/L (3.5-5.1) Chloride Level 98 mmol/L (98-107) Carbon Dioxide Level 28 mmol/L (21-32) Anion Gap 10 (6-14) Blood Urea Nitrogen 37 mg/dL (7-20) Creatinine 3.4 mg/dL (0.6-1.0) Estimated GFR (Cockcroft-Gault) 16.0 BUN/Creatinine Ratio 11 (6-20) Glucose Level 192 mg/dL (70-99) Calcium Level 9.0 mg/dL (8.5-10.1) Total Bilirubin 0.7 mg/dL (0.2-1.0) Aspartate Amino Transf (AST/SGOT) 30 U/L (15-37) Alanine Aminotransferase (ALT/SGPT) 36 U/L (14-59) Alkaline Phosphatase 115 U/L (46-116) Total Protein 6.0 g/dL (6.4-8.2) Albumin 2.9 g/dL (3.4-5.0) Albumin/Globulin Ratio 0.9 (1.0-1.7) Test 12/30/19 11:39 Glucose (Fingerstick) 194 mg/dL (70-99) Results All relevant outside records, renal labs, imaging studies, telemetry/EKG's were reviewed. Justicifation of Admission Dx: Justifications for Admission: Justification of Admission Dx: Yes (ams, renal failure) RAS LONG MD Dec 30, 2019 12:11
--- NOTE | 2019-12-30 12:42 | CONS ---
DATE OF CONSULTATION: 12/30/2019 REQUESTING PHYSICIAN: Dr. Adams. REASON FOR CONSULTATION: Questionable infectious encephalopathy. HISTORY OF PRESENT ILLNESS: The patient is a 74-year-old female, unable to provide history of present illness, past medical history or review of systems. According to the medical record and nursing staff, she is a [facility] resident, who was initially sent to the ER here on 12/27/2019 for evaluation of altered mental status. She was found to have urinary tract infection. She was given a dose of Rocephin and was prescribed Keflex. Later, the urine culture returned positive for E. coli, but susceptibilities are still pending. The patient was again sent to the ER for ongoing altered mental status. A previous CT head on 12/27/2019 showed no acute intracranial abnormality. Moderate chronic small vessel ischemic changes. No fevers have been reported. WBC count is within normal range. A chest x-ray showed mild congestive changes. She has since been admitted and given a dose of Rocephin. PAST MEDICAL HISTORY: History of E. coli (resistant to ampicillin); UTI; valvular disease; cardiomyopathy; chronic combined congestive heart failure; hyperlipidemia; hypertension; chronic kidney disease, on hemodialysis via AV graft; chronic obstructive pulmonary disease; paroxysmal atrial fibrillation; coronary artery disease; type 2 diabetes mellitus; depression; cognitive communication deficit. PAST SURGICAL HISTORY: Bioprosthetic aortic valve replacement, left upper extremity AV graft creation, hysterectomy. SOCIAL HISTORY: The patient is a resident at [facility]. She has a history of smoking. FAMILY HISTORY: Coronary artery disease. ALLERGIES: WARFARIN. MEDICATIONS: Reviewed on the AUG and include one-time dose of ceftriaxone, 12/29/2019 in ER. HOME MEDICATIONS: Included Keflex from 12/27/2019. REVIEW OF SYSTEMS: Unobtainable as the patient is noncommunicative. PHYSICAL EXAMINATION: VITAL SIGNS: Temperature is 98.0, blood pressure 162/95, heart rate 93, respiratory rate 16, pulse oximetry is 99% on 2 liters oxygen. GENERAL: The patient is propped up in bed, resting quietly, arouses to name, noncommunicative, in no apparent distress. HEENT: Pupils equally round, reactive, small. Oropharynx pink, moist. Some bacterial overgrowth on her tongue. NECK: Supple. LUNGS: Clear to auscultation. No accessory muscle use. HEART: S1 and S2 irregular, murmur present. ABDOMEN: Obese, soft, no guarding. Bowel sounds present. EXTREMITIES: No gross edema or cyanosis. LUE-AV graft site unremarkable. SKIN: Warm to touch. No signs of rash. NEUROLOGIC: Arouses easily to name. She opens her mouth when asked and squeezes my hand, though talent acquisition relationship manager is weak. LABORATORY DATA: From 12/29/2019, WBC 6.0, hemoglobin 13.4, platelets 267,000. Sodium 136, potassium 5.5, creatinine 4.1, glucose 221, AST 27, ALT 28, total bilirubin 1.4, alkaline phosphatase 125, albumin 3.1. Urinalysis from 12/29/2019 positive for wbc's, moderate squamous epithelial cells and many bacteria. Urine culture from 12/27/2019 per HPI. Recent chest x-ray showed mild congestive changes, unchanged since prior exam. Head CT per HPI. IMPRESSION: 1. Encephalopathy. 2. Escherichia coli urinary tract infection from 12/27/2019, susceptibilities are still pending. 3. Chronic kidney disease, on hemodialysis via arteriovenous graft. 4. Bioprosthetic aortic valve replacement. 5. Chronic congestive heart failure. 6. Chronic atrial fibrillation. 7. Chronic obstructive pulmonary disease. 8. Hypertension. 9. Cognitive communication deficits. PLAN: 1. Continue the Rocephin for now. 2. We will follow up on the urine culture results from 12/27/2019 as susceptibilities are still pending. 3. Bedside swallow study underway. 4. Maintain aspiration precautions. 5. Discussed with nursing. Thank you, Dr. Adams, for asking us to participate in this patient's care. Should you have further questions or concerns, please call. JOSEPH ELLIOTT MD DR: PACO/david JOB#: [id number] / [id number] CHELLE
--- NOTE | 2019-12-30 12:57 | NUR ---
Bedside swallow study completed by this nurse. No coughing or drooling noted during assessment. Patient ate a cup of pudding, a crackle and drank a cup of apple juice. Spoke to a nurse at [facility]. He stated that patient had a regular texture renal/ADA diet with thin liquids.
[2019-12-30] MEDS: CITALOPRAM 20 MG TABLET. PO SCH (13:33)
[2019-12-30] MEDS: ASPIRIN CHEWABLE 81 MG TABLET. PO SCH (13:33)
[2019-12-30] MEDS: FAMOTIDINE 20 MG TABLET. PO SCH (13:33)
[2019-12-30] MEDS: SUCRALFATE 1 GM TABLET. PO SCH ×3 (13:34→21:07)
[2019-12-30] MEDS: HYDROcodone/APAP 5/325MG 1 TAB TABLET PO SCH ×2 (13:34→18:42)
[2019-12-30] MEDS: hydrALAZINE 25 MG TABLET PO SCH ×3 (13:35→21:08)
[2019-12-30] MEDS: cefTRIAXone IV Push 1 GM VIAL. IVP SCH (13:36)
--- NOTE | 2019-12-30 13:38 | PDOC2 ---
CONSULT Date of Consult Date of Consult DATE: 12/30/19 TIME: 13:23 Reason for Consult Reason for Consult: Atrial fibrillation, coronary artery disease Referring Physician Referring Physician: Dr. Adams Identification/Chief Complaint Chief Complaint Mental status changes Source Source: Chart review History of Present Illness Reason for Visit: 74-year-old female with history of coronary artery disease s/p CABG, bioprosthetic AVR, permanent atrial fibrillation and end-stage renal disease on hemodialysis was transferred via EMS from [facility] with confusion and altered mental status. She was recently seen in ED for mental status changes and was found to have UTI and was discharged on Keflex. Apparently her mental status did not improve and then she was brought back. She is not a good historian and hence cannot obtain any significant history but she seems comfortable in no distress. Past Medical History Cardiovascular: AFIB, CAD, CHF, HTN, Hyperlipidemia Pulmonary: Asthma, Bronchitis, COPD, Pneumonia, Other CENTRAL NERVOUS SYSTEM: TIA GI: Other Heme/Onc: Anemia NOS Hepatobiliary: No pertinent hx Psych: Anxiety, Depression Musculoskeletal: Osteoarthritis Rheumatologic: No pertinent hx Infectious disease: Other Renal/: Chronic renal insuff, Urinary Incontinence Endocrine: Diabetes Past Surgical History Past Surgical History: CABG, Hysterectomy Family History Family History: Coronary Artery Disease Social History ALCOHOL: none Drugs: None Lives: Long-Term Current Problem List Problem List Problems Medical Problems: (1) Acute on chronic renal failure Status: Acute (2) AMS (altered mental status) Status: Acute Current Medications Current Medications Current Medications Ceftriaxone Sodium (Rocephin) 1 gm 1X ONCE IVP Last administered on 12/29/19at 13:00; Start 12/29/19 at 13:00; Stop 12/29/19 at 13:01; Status DC Sodium Chloride 1,000 ml @ 1,000 mls/hr Q1H PRN IV hypotension; Start 12/29/19 at 14:54; Stop 12/29/19 at 20:53; Status DC Albumin Human 200 ml @ 200 mls/hr 1X PRN PRN IV Hypotension; Start 12/29/19 at 15:00; Stop 12/29/19 at 20:59; Status DC Sodium Chloride 1,000 ml @ 400 mls/hr Q2H30M PRN IV PATENCY; Start 12/29/19 at 14:54; Stop 12/30/19 at 02:53; Status DC Info (PHARMACY MONITORING -- do not chart) 1 each PRN DAILY PRN [facility] SEE COMMENTS; Start 12/29/19 at 15:00; Status UNV Info (PHARMACY MONITORING -- do not chart) 1 each PRN DAILY PRN [facility] SEE COMMENTS; Start 12/29/19 at 15:00 Amino Acids/ Glycerin/ Electrolytes 1,000 ml @ 80 mls/hr [id number] IV Last administered on 12/30/19at 06:39; Start 12/29/19 at 20:00 Ceftriaxone Sodium (Rocephin) 1 gm Q24H IVP ; Start 12/30/19 at 10:00 Aspirin (Aspirin Chewable) 81 mg DAILY PO ; Start 12/30/19 at 10:00 Citalopram Hydrobromide (CeleXA) 20 mg DAILY PO ; Start 12/30/19 at 10:00 Famotidine (Pepcid) 20 mg QODAY PO ; Start 12/30/19 at 10:00 Gabapentin (Neurontin) 300 mg TuThSa PO ; Start 12/31/19 at 09:00 Hydralazine HCl (Apresoline) 37.5 mg TID PO ; Start 12/30/19 at 10:00 Acetaminophen/ Hydrocodone Bitart (Lortab 5/325) 1 tab Q6HRS PO ; Start 12/30/19 at 11:00 Lisinopril (Prinivil) 10 mg DAILY PO ; Start 12/30/19 at 11:00 Metoprolol Succinate (Toprol Xl) 100 mg HS PO ; Start 12/30/19 at 21:00 Sucralfate (Carafate) 1 gm QIDACHS PO ; Start 12/30/19 at 11:30 Atorvastatin Calcium (Lipitor) 80 mg QHS PO ; Start 12/30/19 at 21:00 Non-Formulary Medication (Budesonide/ Formoterol Fumarate (Symbicort 160-4.5 Mcg Inhaler)) 2 puff BID IH ; Start 12/30/19 at 21:00; Status UNV Non-Formulary Medication (Cephalexin (Keflex)) 1 cap BID PO ; Start 12/30/19 at 21:00; Status UNV Insulin Glargine (Lantus Syringe) 10 unit BID SQ ; Start 12/30/19 at 11:00 Lactobacillus Rhamnosus (Culturelle) 1 cap BID PO ; Start 12/30/19 at 21:00 Budesonide (Pulmicort) 0.5 mg RTBID NEB Last administered on 12/30/19at 11:44; Start 12/30/19 at 11:00 Albuterol Sulfate (Ventolin Neb Soln) 2.5 mg Q6HRS NEB Last administered on 12/30/19at 11:44; Start 12/30/19 at 12:00 Active Scripts Active Keflex (Cephalexin) 500 Mg Capsule 1 Cap PO BID 5 Days Reported Bidil Tablet (Isosorb Dinit/Hydralazine Hcl) 1 Each Tablet 1 Each PO SUMOWEFR Bidil Tablet (Isosorb Dinit/Hydralazine Hcl) 1 Each Tablet 1 Each PO HS Metoprolol Succinate ( Xl ) (Metoprolol Succinate) 100 Mg Tab.er.24h 1 Tab PO HS Eliquis (Apixaban) 2.5 Mg Tablet 2.5 Mg PO QMWF Eliquis (Apixaban) 2.5 Mg Tablet 2.5 Mg PO HS Aspirin 81 Mg Tab.chew 1 Tab PO HS Isosorbide Dinitrate 30 Mg Tablet 20 Mg PO TID Hydralazine Hcl 25 Mg Tablet 37.5 Mg PO TID Lisinopril 10 Mg Tablet 1 Tab PO DAILY Famotidine 20 Mg Tablet 20 Mg PO QODAY Take at bedtime every other day. Next dose: 09/22/2019 Gabapentin (Gabapentin) 300 Mg Capsule 300 Mg PO QTUTHSA Take after dialysis [place] 5-325 Tablet (Acetaminophen/Hydrocodone Bitart) 1 Each Tablet 1 Tab PO Q6HRS Novolin N Flexpen (Insulin NPH Human Isophane) 100 Unit/1 Ml Insuln.pen 10 Unit SQ BID Carafate (Sucralfate) 1 Gm Tablet 1 Tab PO QID 30 Days Children's Aspirin (Aspirin) 81 Mg Tab.chew 81 Mg PO DAILY Atorvastatin Calcium 80 Mg Tablet 1 Tab PO HS Celexa (Citalopram Hydrobromide) 20 Mg Tablet 1 Tab PO DAILY [facility] Rx Tablet (Vit B Cmplx 3/Fa/Vit C/Biotin) 1 Each Tablet 1 Each PO DAILY Symbicort 160-4.5 Mcg Inhaler (Budesonide/Formoterol Fumarate) 10.2 Gm Hfa.aer.ad 2 Puff IH BID Allergies Allergies: Coded Allergies: warfarin (Verified Allergy, Intermediate, 01/13/19) ROS Review of System Cannot be obtained. Physical Exam General: Alert, No acute distress HEENT: Atraumatic Lungs: Clear to auscultation Heart: Other (Heart rate irregular, ESM aortic) Abdomen: Soft Extremities: No edema Vitals VITALS Vital Signs Date Time Temp Pulse Resp B/P (MAP) Pulse Ox O2 Delivery O2 Flow Rate FiO2 12/30/19 11:47 96 Nasal Cannula 2.0 12/30/19 10:50 97.6 95 16 168/97 (120) 97.6 Labs Labs Laboratory Tests Test 12/29/19 11:32 12/29/19 11:50 12/29/19 20:12 12/30/19 00:27 White Blood Count 6.0 x10^3/uL (4.0-11.0) Red Blood Count 4.80 x10^6/uL (3.50-5.40) Hemoglobin 13.4 g/dL (12.0-15.5) Hematocrit 40.9 % (36.0-47.0) Mean Corpuscular Volume 85 fL (79-100) Mean Corpuscular Hemoglobin 28 pg (25-35) Mean Corpuscular Hemoglobin Concent 33 g/dL (31-37) Red Cell Distribution Width 17.7 % (11.5-14.5) Platelet Count 267 x10^3/uL (140-400) Neutrophils (%) (Auto) 75 % (31-73) Lymphocytes (%) (Auto) 14 % (24-48) Monocytes (%) (Auto) 10 % (0-9) Eosinophils (%) (Auto) 0 % (0-3) Basophils (%) (Auto) 0 % (0-3) Neutrophils # (Auto) 4.5 x10^3/uL (1.8-7.7) Lymphocytes # (Auto) 0.9 x10^3/uL (1.0-4.8) Monocytes # (Auto) 0.6 x10^3/uL (0.0-1.1) Eosinophils # (Auto) 0.0 x10^3/uL (0.0-0.7) Basophils # (Auto) 0.0 x10^3/uL (0.0-0.2) Prothrombin Time 18.7 SEC (11.7-14.0) Prothromb Time International Ratio 1.6 (0.8-1.1) Sodium Level 136 mmol/L (136-145) Potassium Level 5.5 mmol/L (3.5-5.1) Chloride Level 100 mmol/L (98-107) Carbon Dioxide Level 19 mmol/L (21-32) Anion Gap 17 (6-14) Blood Urea Nitrogen 41 mg/dL (7-20) Creatinine 4.1 mg/dL (0.6-1.0) Estimated GFR (Cockcroft-Gault) 12.9 BUN/Creatinine Ratio 10 (6-20) Glucose Level 221 mg/dL (70-99) Calcium Level 9.1 mg/dL (8.5-10.1) Total Bilirubin 1.4 mg/dL (0.2-1.0) Aspartate Amino Transf (AST/SGOT) 27 U/L (15-37) Alanine Aminotransferase (ALT/SGPT) 28 U/L (14-59) Alkaline Phosphatase 125 U/L (46-116) Troponin I Quantitative 0.068 ng/mL (0.000-0.055) MA-Hbt-C-Type Natriuretic Peptide > 74657 pg/mL (0-124) Total Protein 6.7 g/dL (6.4-8.2) Albumin 3.1 g/dL (3.4-5.0) Albumin/Globulin Ratio 0.9 (1.0-1.7) Urine Collection Type Unknown Urine Color Brown Urine Clarity Turbid Urine pH (<5.0-8.0) Urine Specific [place] (1.000-1.030) Urine Protein mg/dL (NEG-TRACE) Urine Glucose (UA) mg/dL (NEG) Urine Ketones (Stick) mg/dL (NEG) Urine Blood (NEG) Urine Nitrite (NEG) Urine Bilirubin (NEG) Urine Urobilinogen Dipstick mg/dL (0.2 mg/dL) Urine Leukocyte Esterase (NEG) Urine RBC 3-5 /HPF (0-2) Urine WBC Tntc /HPF (0-4) Urine Squamous Epithelial Cells Mod /LPF Urine Bacteria Many /HPF (0-FEW) Glucose (Fingerstick) 156 mg/dL (70-99) 187 mg/dL (70-99) Test 12/30/19 07:28 12/30/19 09:00 12/30/19 11:39 Glucose (Fingerstick) 181 mg/dL (70-99) 194 mg/dL (70-99) White Blood Count 6.5 x10^3/uL (4.0-11.0) Red Blood Count 4.75 x10^6/uL (3.50-5.40) Hemoglobin 13.1 g/dL (12.0-15.5) Hematocrit 40.5 % (36.0-47.0) Mean Corpuscular Volume 85 fL (79-100) Mean Corpuscular Hemoglobin 28 pg (25-35) Mean Corpuscular Hemoglobin Concent 32 g/dL (31-37) Red Cell Distribution Width 18.1 % (11.5-14.5) Platelet Count 235 x10^3/uL (140-400) Neutrophils (%) (Auto) 63 % (31-73) Lymphocytes (%) (Auto) 22 % (24-48) Monocytes (%) (Auto) 14 % (0-9) Eosinophils (%) (Auto) 0 % (0-3) Basophils (%) (Auto) 1 % (0-3) Neutrophils # (Auto) 4.1 x10^3/uL (1.8-7.7) Lymphocytes # (Auto) 1.4 x10^3/uL (1.0-4.8) Monocytes # (Auto) 0.9 x10^3/uL (0.0-1.1) Eosinophils # (Auto) 0.0 x10^3/uL (0.0-0.7) Basophils # (Auto) 0.1 x10^3/uL (0.0-0.2) Sodium Level 136 mmol/L (136-145) Potassium Level 4.6 mmol/L (3.5-5.1) Chloride Level 98 mmol/L (98-107) Carbon Dioxide Level 28 mmol/L (21-32) Anion Gap 10 (6-14) Blood Urea Nitrogen 37 mg/dL (7-20) Creatinine 3.4 mg/dL (0.6-1.0) Estimated GFR (Cockcroft-Gault) 16.0 BUN/Creatinine Ratio 11 (6-20) Glucose Level 192 mg/dL (70-99) Calcium Level 9.0 mg/dL (8.5-10.1) Total Bilirubin 0.7 mg/dL (0.2-1.0) Aspartate Amino Transf (AST/SGOT) 30 U/L (15-37) Alanine Aminotransferase (ALT/SGPT) 36 U/L (14-59) Alkaline Phosphatase 115 U/L (46-116) Total Protein 6.0 g/dL (6.4-8.2) Albumin 2.9 g/dL (3.4-5.0) Albumin/Globulin Ratio 0.9 (1.0-1.7) Laboratory Tests Test 12/29/19 20:12 12/30/19 00:27 12/30/19 07:28 12/30/19 09:00 Glucose (Fingerstick) 156 mg/dL (70-99) 187 mg/dL (70-99) 181 mg/dL (70-99) White Blood Count 6.5 x10^3/uL (4.0-11.0) Red Blood Count 4.75 x10^6/uL (3.50-5.40) Hemoglobin 13.1 g/dL (12.0-15.5) Hematocrit 40.5 % (36.0-47.0) Mean Corpuscular Volume 85 fL (79-100) Mean Corpuscular Hemoglobin 28 pg (25-35) Mean Corpuscular Hemoglobin Concent 32 g/dL (31-37) Red Cell Distribution Width 18.1 % (11.5-14.5) Platelet Count 235 x10^3/uL (140-400) Neutrophils (%) (Auto) 63 % (31-73) Lymphocytes (%) (Auto) 22 % (24-48) Monocytes (%) (Auto) 14 % (0-9) Eosinophils (%) (Auto) 0 % (0-3) Basophils (%) (Auto) 1 % (0-3) Neutrophils # (Auto) 4.1 x10^3/uL (1.8-7.7) Lymphocytes # (Auto) 1.4 x10^3/uL (1.0-4.8) Monocytes # (Auto) 0.9 x10^3/uL (0.0-1.1) Eosinophils # (Auto) 0.0 x10^3/uL (0.0-0.7) Basophils # (Auto) 0.1 x10^3/uL (0.0-0.2) Sodium Level 136 mmol/L (136-145) Potassium Level 4.6 mmol/L (3.5-5.1) Chloride Level 98 mmol/L (98-107) Carbon Dioxide Level 28 mmol/L (21-32) Anion Gap 10 (6-14) Blood Urea Nitrogen 37 mg/dL (7-20) Creatinine 3.4 mg/dL (0.6-1.0) Estimated GFR (Cockcroft-Gault) 16.0 BUN/Creatinine Ratio 11 (6-20) Glucose Level 192 mg/dL (70-99) Calcium Level 9.0 mg/dL (8.5-10.1) Total Bilirubin 0.7 mg/dL (0.2-1.0) Aspartate Amino Transf (AST/SGOT) 30 U/L (15-37) Alanine Aminotransferase (ALT/SGPT) 36 U/L (14-59) Alkaline Phosphatase 115 U/L (46-116) Total Protein 6.0 g/dL (6.4-8.2) Albumin 2.9 g/dL (3.4-5.0) Albumin/Globulin Ratio 0.9 (1.0-1.7) Test 12/30/19 11:39 Glucose (Fingerstick) 194 mg/dL (70-99) Assessment/Plan Assessment/Plan 1. Permanent AFIB, rate relatively well controlled. Continue beta-blockers. Hold Eliquis for now and continue aspirin. 2. Mental status changes, metabolic encephalopathy secondary to UTI. Continue antibiotics per ID team. 3. Chronic systolic heart failure, clinically well compensated. LVEF 40 to 45%. 4. CAD: 01/21/2019 [facility] mild to moderate LAD/LCx disease, occluded RCA with patent SVG graft. Clinically stable 5. Bioprosthetic AVR: Clinically stable 6. HTN: Slightly elevated. Increase lisinopril dose for better control. 7. ESRD: Continue hemodialysis per nephrology team. 8. COPD, stable 9. DM2/HLP: Per NADER GORDON MD Dec 30, 2019 13:37
--- NOTE | 2019-12-30 13:48 | PDOC ---
PROGRESS NOTES Chief Complaint Chief Complaint acute Mental status change-/ metabolic encephalopathy dementia at [facility] ESRD - UTI- E. coli UTI from 12/26 Chronic systolic and diastolic heart failure- atrial fibrillation is rate contrrolled COPD- w/ chonic hypoxia, Hypertension- antihypertensives History of Present Illness History of Present Illness sittign up and eating cont PPN as amt of PO intake is poor long list of problems, poor prognosis, Vitals Vitals Vital Signs Date Time Temp Pulse Resp B/P (MAP) Pulse Ox O2 Delivery O2 Flow Rate FiO2 12/30/19 11:47 96 Nasal Cannula 2.0 12/30/19 10:50 97.6 95 16 168/97 (120) 97.6 Physical Exam General: Alert, No acute distress Heart: Other (Heart rate irregular, ESM aortic) Lungs: Clear, Other Abdomen: Soft Extremities: No edema Labs LABS Laboratory Tests Test 12/29/19 20:12 12/30/19 00:27 12/30/19 07:28 12/30/19 09:00 Glucose (Fingerstick) 156 mg/dL (70-99) 187 mg/dL (70-99) 181 mg/dL (70-99) White Blood Count 6.5 x10^3/uL (4.0-11.0) Red Blood Count 4.75 x10^6/uL (3.50-5.40) Hemoglobin 13.1 g/dL (12.0-15.5) Hematocrit 40.5 % (36.0-47.0) Mean Corpuscular Volume 85 fL (79-100) Mean Corpuscular Hemoglobin 28 pg (25-35) Mean Corpuscular Hemoglobin Concent 32 g/dL (31-37) Red Cell Distribution Width 18.1 % (11.5-14.5) Platelet Count 235 x10^3/uL (140-400) Neutrophils (%) (Auto) 63 % (31-73) Lymphocytes (%) (Auto) 22 % (24-48) Monocytes (%) (Auto) 14 % (0-9) Eosinophils (%) (Auto) 0 % (0-3) Basophils (%) (Auto) 1 % (0-3) Neutrophils # (Auto) 4.1 x10^3/uL (1.8-7.7) Lymphocytes # (Auto) 1.4 x10^3/uL (1.0-4.8) Monocytes # (Auto) 0.9 x10^3/uL (0.0-1.1) Eosinophils # (Auto) 0.0 x10^3/uL (0.0-0.7) Basophils # (Auto) 0.1 x10^3/uL (0.0-0.2) Sodium Level 136 mmol/L (136-145) Potassium Level 4.6 mmol/L (3.5-5.1) Chloride Level 98 mmol/L (98-107) Carbon Dioxide Level 28 mmol/L (21-32) Anion Gap 10 (6-14) Blood Urea Nitrogen 37 mg/dL (7-20) Creatinine 3.4 mg/dL (0.6-1.0) Estimated GFR (Cockcroft-Gault) 16.0 BUN/Creatinine Ratio 11 (6-20) Glucose Level 192 mg/dL (70-99) Calcium Level 9.0 mg/dL (8.5-10.1) Total Bilirubin 0.7 mg/dL (0.2-1.0) Aspartate Amino Transf (AST/SGOT) 30 U/L (15-37) Alanine Aminotransferase (ALT/SGPT) 36 U/L (14-59) Alkaline Phosphatase 115 U/L (46-116) Total Protein 6.0 g/dL (6.4-8.2) Albumin 2.9 g/dL (3.4-5.0) Albumin/Globulin Ratio 0.9 (1.0-1.7) Test 12/30/19 11:39 Glucose (Fingerstick) 194 mg/dL (70-99) Assessment and Plan Assessmemt and Plan Problems Medical Problems: (1) Acute on chronic renal failure Status: Acute (2) AMS (altered mental status) Status: Acute Comment Review of Relevant I have reviewed the following items nano (where applicable) has been applied. Labs Laboratory Tests Test 12/29/19 11:32 12/29/19 11:50 12/29/19 20:12 12/30/19 00:27 White Blood Count 6.0 x10^3/uL (4.0-11.0) Red Blood Count 4.80 x10^6/uL (3.50-5.40) Hemoglobin 13.4 g/dL (12.0-15.5) Hematocrit 40.9 % (36.0-47.0) Mean Corpuscular Volume 85 fL (79-100) Mean Corpuscular Hemoglobin 28 pg (25-35) Mean Corpuscular Hemoglobin Concent 33 g/dL (31-37) Red Cell Distribution Width 17.7 % (11.5-14.5) Platelet Count 267 x10^3/uL (140-400) Neutrophils (%) (Auto) 75 % (31-73) Lymphocytes (%) (Auto) 14 % (24-48) Monocytes (%) (Auto) 10 % (0-9) Eosinophils (%) (Auto) 0 % (0-3) Basophils (%) (Auto) 0 % (0-3) Neutrophils # (Auto) 4.5 x10^3/uL (1.8-7.7) Lymphocytes # (Auto) 0.9 x10^3/uL (1.0-4.8) Monocytes # (Auto) 0.6 x10^3/uL (0.0-1.1) Eosinophils # (Auto) 0.0 x10^3/uL (0.0-0.7) Basophils # (Auto) 0.0 x10^3/uL (0.0-0.2) Prothrombin Time 18.7 SEC (11.7-14.0) Prothromb Time International Ratio 1.6 (0.8-1.1) Sodium Level 136 mmol/L (136-145) Potassium Level 5.5 mmol/L (3.5-5.1) Chloride Level 100 mmol/L (98-107) Carbon Dioxide Level 19 mmol/L (21-32) Anion Gap 17 (6-14) Blood Urea Nitrogen 41 mg/dL (7-20) Creatinine 4.1 mg/dL (0.6-1.0) Estimated GFR (Cockcroft-Gault) 12.9 BUN/Creatinine Ratio 10 (6-20) Glucose Level 221 mg/dL (70-99) Calcium Level 9.1 mg/dL (8.5-10.1) Total Bilirubin 1.4 mg/dL (0.2-1.0) Aspartate Amino Transf (AST/SGOT) 27 U/L (15-37) Alanine Aminotransferase (ALT/SGPT) 28 U/L (14-59) Alkaline Phosphatase 125 U/L (46-116) Troponin I Quantitative 0.068 ng/mL (0.000-0.055) JH-Afa-M-Type Natriuretic Peptide > 15967 pg/mL (0-124) Total Protein 6.7 g/dL (6.4-8.2) Albumin 3.1 g/dL (3.4-5.0) Albumin/Globulin Ratio 0.9 (1.0-1.7) Urine Collection Type Unknown Urine Color Brown Urine Clarity Turbid Urine pH (<5.0-8.0) Urine Specific [place] (1.000-1.030) Urine Protein mg/dL (NEG-TRACE) Urine Glucose (UA) mg/dL (NEG) Urine Ketones (Stick) mg/dL (NEG) Urine Blood (NEG) Urine Nitrite (NEG) Urine Bilirubin (NEG) Urine Urobilinogen Dipstick mg/dL (0.2 mg/dL) Urine Leukocyte Esterase (NEG) Urine RBC 3-5 /HPF (0-2) Urine WBC Tntc /HPF (0-4) Urine Squamous Epithelial Cells Mod /LPF Urine Bacteria Many /HPF (0-FEW) Glucose (Fingerstick) 156 mg/dL (70-99) 187 mg/dL (70-99) Test 12/30/19 07:28 12/30/19 09:00 12/30/19 11:39 Glucose (Fingerstick) 181 mg/dL (70-99) 194 mg/dL (70-99) White Blood Count 6.5 x10^3/uL (4.0-11.0) Red Blood Count 4.75 x10^6/uL (3.50-5.40) Hemoglobin 13.1 g/dL (12.0-15.5) Hematocrit 40.5 % (36.0-47.0) Mean Corpuscular Volume 85 fL (79-100) Mean Corpuscular Hemoglobin 28 pg (25-35) Mean Corpuscular Hemoglobin Concent 32 g/dL (31-37) Red Cell Distribution Width 18.1 % (11.5-14.5) Platelet Count 235 x10^3/uL (140-400) Neutrophils (%) (Auto) 63 % (31-73) Lymphocytes (%) (Auto) 22 % (24-48) Monocytes (%) (Auto) 14 % (0-9) Eosinophils (%) (Auto) 0 % (0-3) Basophils (%) (Auto) 1 % (0-3) Neutrophils # (Auto) 4.1 x10^3/uL (1.8-7.7) Lymphocytes # (Auto) 1.4 x10^3/uL (1.0-4.8) Monocytes # (Auto) 0.9 x10^3/uL (0.0-1.1) Eosinophils # (Auto) 0.0 x10^3/uL (0.0-0.7) Basophils # (Auto) 0.1 x10^3/uL (0.0-0.2) Sodium Level 136 mmol/L (136-145) Potassium Level 4.6 mmol/L (3.5-5.1) Chloride Level 98 mmol/L (98-107) Carbon Dioxide Level 28 mmol/L (21-32) Anion Gap 10 (6-14) Blood Urea Nitrogen 37 mg/dL (7-20) Creatinine 3.4 mg/dL (0.6-1.0) Estimated GFR (Cockcroft-Gault) 16.0 BUN/Creatinine Ratio 11 (6-20) Glucose Level 192 mg/dL (70-99) Calcium Level 9.0 mg/dL (8.5-10.1) Total Bilirubin 0.7 mg/dL (0.2-1.0) Aspartate Amino Transf (AST/SGOT) 30 U/L (15-37) Alanine Aminotransferase (ALT/SGPT) 36 U/L (14-59) Alkaline Phosphatase 115 U/L (46-116) Total Protein 6.0 g/dL (6.4-8.2) Albumin 2.9 g/dL (3.4-5.0) Albumin/Globulin Ratio 0.9 (1.0-1.7) Laboratory Tests Test 12/29/19 20:12 12/30/19 00:27 12/30/19 07:28 12/30/19 09:00 Glucose (Fingerstick) 156 mg/dL (70-99) 187 mg/dL (70-99) 181 mg/dL (70-99) White Blood Count 6.5 x10^3/uL (4.0-11.0) Red Blood Count 4.75 x10^6/uL (3.50-5.40) Hemoglobin 13.1 g/dL (12.0-15.5) Hematocrit 40.5 % (36.0-47.0) Mean Corpuscular Volume 85 fL (79-100) Mean Corpuscular Hemoglobin 28 pg (25-35) Mean Corpuscular Hemoglobin Concent 32 g/dL (31-37) Red Cell Distribution Width 18.1 % (11.5-14.5) Platelet Count 235 x10^3/uL (140-400) Neutrophils (%) (Auto) 63 % (31-73) Lymphocytes (%) (Auto) 22 % (24-48) Monocytes (%) (Auto) 14 % (0-9) Eosinophils (%) (Auto) 0 % (0-3) Basophils (%) (Auto) 1 % (0-3) Neutrophils # (Auto) 4.1 x10^3/uL (1.8-7.7) Lymphocytes # (Auto) 1.4 x10^3/uL (1.0-4.8) Monocytes # (Auto) 0.9 x10^3/uL (0.0-1.1) Eosinophils # (Auto) 0.0 x10^3/uL (0.0-0.7) Basophils # (Auto) 0.1 x10^3/uL (0.0-0.2) Sodium Level 136 mmol/L (136-145) Potassium Level 4.6 mmol/L (3.5-5.1) Chloride Level 98 mmol/L (98-107) Carbon Dioxide Level 28 mmol/L (21-32) Anion Gap 10 (6-14) Blood Urea Nitrogen 37 mg/dL (7-20) Creatinine 3.4 mg/dL (0.6-1.0) Estimated GFR (Cockcroft-Gault) 16.0 BUN/Creatinine Ratio 11 (6-20) Glucose Level 192 mg/dL (70-99) Calcium Level 9.0 mg/dL (8.5-10.1) Total Bilirubin 0.7 mg/dL (0.2-1.0) Aspartate Amino Transf (AST/SGOT) 30 U/L (15-37) Alanine Aminotransferase (ALT/SGPT) 36 U/L (14-59) Alkaline Phosphatase 115 U/L (46-116) Total Protein 6.0 g/dL (6.4-8.2) Albumin 2.9 g/dL (3.4-5.0) Albumin/Globulin Ratio 0.9 (1.0-1.7) Test 12/30/19 11:39 Glucose (Fingerstick) 194 mg/dL (70-99) Medications Current Medications Ceftriaxone Sodium (Rocephin) 1 gm 1X ONCE IVP Last administered on 12/29/19at 13:00; Start 12/29/19 at 13:00; Stop 12/29/19 at 13:01; Status DC Sodium Chloride 1,000 ml @ 1,000 mls/hr Q1H PRN IV hypotension; Start 12/29/19 at 14:54; Stop 12/29/19 at 20:53; Status DC Albumin Human 200 ml @ 200 mls/hr 1X PRN PRN IV Hypotension; Start 12/29/19 at 15:00; Stop 12/29/19 at 20:59; Status DC Sodium Chloride 1,000 ml @ 400 mls/hr Q2H30M PRN IV PATENCY; Start 12/29/19 at 14:54; Stop 12/30/19 at 02:53; Status DC Info (PHARMACY MONITORING -- do not chart) 1 each PRN DAILY PRN MC SEE COMMENTS; Start 12/29/19 at 15:00; Status UNV Info (PHARMACY MONITORING -- do not chart) 1 each PRN DAILY PRN MC SEE COMMENTS; Start 12/29/19 at 15:00 Amino Acids/ Glycerin/ Electrolytes 1,000 ml @ 80 mls/hr [id number] IV Last administered on 12/30/19at 06:39; Start 12/29/19 at 20:00 Ceftriaxone Sodium (Rocephin) 1 gm Q24H IVP ; Start 12/30/19 at 10:00 Aspirin (Aspirin Chewable) 81 mg DAILY PO ; Start 12/30/19 at 10:00 Citalopram Hydrobromide (CeleXA) 20 mg DAILY PO ; Start 12/30/19 at 10:00 Famotidine (Pepcid) 20 mg QODAY PO ; Start 12/30/19 at 10:00 Gabapentin (Neurontin) 300 mg TuThSa PO ; Start 12/31/19 at 09:00 Hydralazine HCl (Apresoline) 37.5 mg TID PO ; Start 12/30/19 at 10:00 Acetaminophen/ Hydrocodone Bitart (Lortab 5/325) 1 tab Q6HRS PO ; Start 12/30/19 at 11:00 Lisinopril (Prinivil) 10 mg DAILY PO ; Start 12/30/19 at 11:00 Metoprolol Succinate (Toprol Xl) 100 mg HS PO ; Start 12/30/19 at 21:00 Sucralfate (Carafate) 1 gm QIDACHS PO ; Start 12/30/19 at 11:30 Atorvastatin Calcium (Lipitor) 80 mg QHS PO ; Start 12/30/19 at 21:00 Non-Formulary Medication (Budesonide/ Formoterol Fumarate (Symbicort 160-4.5 Mcg Inhaler)) 2 puff BID IH ; Start 12/30/19 at 21:00; Status UNV Non-Formulary Medication (Cephalexin (Keflex)) 1 cap BID PO ; Start 12/30/19 at 21:00; Status UNV Insulin Glargine (Lantus Syringe) 10 unit BID SQ ; Start 12/30/19 at 11:00 Lactobacillus Rhamnosus (Culturelle) 1 cap BID PO ; Start 12/30/19 at 21:00 Budesonide (Pulmicort) 0.5 mg RTBID NEB Last administered on 12/30/19at 11:44; Start 12/30/19 at 11:00 Albuterol Sulfate (Ventolin Neb Soln) 2.5 mg Q6HRS NEB Last administered on 12/30/19at 11:44; Start 12/30/19 at 12:00 Active Scripts Active Keflex (Cephalexin) 500 Mg Capsule 1 Cap PO BID 5 Days Reported Bidil Tablet (Isosorb Dinit/Hydralazine Hcl) 1 Each Tablet 1 Each PO SUMOWEFR Bidil Tablet (Isosorb Dinit/Hydralazine Hcl) 1 Each Tablet 1 Each PO HS Metoprolol Succinate ( Xl ) (Metoprolol Succinate) 100 Mg Tab.er.24h 1 Tab PO HS Eliquis (Apixaban) 2.5 Mg Tablet 2.5 Mg PO QMWF Eliquis (Apixaban) 2.5 Mg Tablet 2.5 Mg PO HS Aspirin 81 Mg Tab.chew 1 Tab PO HS Isosorbide Dinitrate 30 Mg Tablet 20 Mg PO TID Hydralazine Hcl 25 Mg Tablet 37.5 Mg PO TID Lisinopril 10 Mg Tablet 1 Tab PO DAILY Famotidine 20 Mg Tablet 20 Mg PO QODAY Take at bedtime every other day. Next dose: 09/22/2019 Gabapentin (Gabapentin) 300 Mg Capsule 300 Mg PO QTUTHSA Take after dialysis [place] 5-325 Tablet (Acetaminophen/Hydrocodone Bitart) 1 Each Tablet 1 Tab PO Q6HRS Novolin N Flexpen (Insulin NPH Human Isophane) 100 Unit/1 Ml Insuln.pen 10 Unit SQ BID Carafate (Sucralfate) 1 Gm Tablet 1 Tab PO QID 30 Days Children's Aspirin (Aspirin) 81 Mg Tab.chew 81 Mg PO DAILY Atorvastatin Calcium 80 Mg Tablet 1 Tab PO HS Celexa (Citalopram Hydrobromide) 20 Mg Tablet 1 Tab PO DAILY [facility] Rx Tablet (Vit B Cmplx 3/Fa/Vit C/Biotin) 1 Each Tablet 1 Each PO DAILY Symbicort 160-4.5 Mcg Inhaler (Budesonide/Formoterol Fumarate) 10.2 Gm Hfa.aer.ad 2 Puff IH BID Vitals/I & O Vital Sign - Last 24 Hours 12/29/19 12/29/19 12/29/19 12/30/19 19:10 19:45 22:06 02:06 Temp 98.3 98.8 99.2 98.3 98.8 99.2 Pulse 79 87 72 Resp 16 16 18 B/P (MAP) 165/91 (115) 154/94 (114) 165/87 (113) Pulse Ox 100 100 99 O2 Delivery Nasal Cannula Nasal Cannula Nasal Cannula Nasal Cannula O2 Flow Rate 2.0 2.0 2.0 2.0 12/30/19 12/30/19 12/30/19 12/30/19 07:00 08:00 10:50 11:47 Temp 98.0 97.6 98.0 97.6 Pulse 93 95 Resp 16 16 B/P (MAP) 162/95 (117) 168/97 (120) Pulse Ox 99 100 96 O2 Delivery Nasal Cannula Nasal Cannula Nasal Cannula Nasal Cannula O2 Flow Rate 2.0 2.0 2.0 2.0 Intake and Output 12/29/19 12/29/19 12/30/19 15:00 23:00 07:00 Intake Total 0 ml 0 ml Balance 0 ml 0 ml Nutrition Consultation Dietary Evaluation: Recommendations by RD: Dietary education by RD, Increase Calorie Intake, Protein supplementation, PPN/TPN Comments: Continue w/PPN for short-term nutrition needs while pt remains NPO REC advance diet as able pending mental status and bedside swallow eval results, goal diet renal/ADA w/nepro supplements prn/per pt preference Expected Outcomes/Goals: Diet advancement Malnutrition Findings: Food and Nutrition Intake (Sev: <50% est energy req 5days Weight Status: Appropriate Justicifation of Admission Dx: Justifications for Admission: Justification of Admission Dx: Yes (ams, renal failure) KEILY COLE MD Dec 30, 2019 13:48
[2019-12-30] MEDS: INSULIN GLARGINE SYRINGE. SQ SCH ×2 (13:54→21:11)
[2019-12-30] MEDS ORDERED: DEXTROSE 50% 25 GM / 50ML DISP.SYRIN. IV PRN (14:30)
[2019-12-30 15:00] VITALS: BP 155/105
[2019-12-30] MEDS: INSULIN LISPRO 300 UNITS/3 ML VIAL. SQ SCH (17:38)
[2019-12-30 19:10] VITALS: BP 165/101
[2019-12-30] MEDS ORDERED: NON FORMULARY ITEM (Budesonide/Formoterol Fumarate (Symbicort 160-4.5 Mcg Inhaler) 2 PUFF) IH SCH (21:00)
[2019-12-30] MEDS ORDERED: NON FORMULARY ITEM (Cephalexin (Keflex) 1 CAP) PO SCH (21:00)
[2019-12-30] MEDS: ATORVASTATIN CALCIUM 40 MG TABLET. PO SCH (21:07)
[2019-12-30] MEDS: METOPROLOL SUCC 24HR ER 100 MG TAB.ER.24H. PO SCH (21:07)
[2019-12-30] MEDS: LACTOBACILLUS RHAMNOSUS GG 1 CAPSULE. PO SCH (21:07)
[2019-12-30 23:30] VITALS: BP 149/85
--- NOTE | 2019-12-31 00:06 | NUR ---
Midnight lortab not given at this time, pt is sleeping soundly with no nonverbal signs of pain. Pt was turned and quickly went back to sleep, resting comfortably.
[2019-12-31] MEDS: ALBUTEROL SULFATE 2.5 MG/3 ML NEBU. NEB SCH ×4 (00:39→19:45)
[2019-12-31 03:15] VITALS: BP 169/111
[2019-12-31] MEDS: HYDROcodone/APAP 5/325MG 1 TAB TABLET PO SCH ×5 (05:57→23:35)
[2019-12-31 07:00] VITALS: BP 167/93
[2019-12-31] MEDS: SUCRALFATE 1 GM TABLET. PO SCH ×4 (07:30→21:21)
[2019-12-31] MEDS: BUDESONIDE 0.5 MG/2 ML NEBU. NEB SCH ×2 (07:38→19:47)
[2019-12-31] MEDS: INSULIN LISPRO 300 UNITS/3 ML VIAL. SQ SCH ×3 (08:00→17:00)
[2019-12-31] MEDS: LACTOBACILLUS RHAMNOSUS GG 1 CAPSULE. PO SCH ×2 (09:00→21:20)
[2019-12-31] MEDS: CITALOPRAM 20 MG TABLET. PO SCH (09:00)
[2019-12-31] MEDS: LISINOPRIL 20 MG TABLET PO SCH (09:00)
[2019-12-31] MEDS: ASPIRIN CHEWABLE 81 MG TABLET. PO SCH (09:00)
[2019-12-31] MEDS: INSULIN GLARGINE SYRINGE. SQ SCH ×2 (09:00→21:30)
[2019-12-31] MEDS: hydrALAZINE 25 MG TABLET PO SCH ×3 (09:00→21:20)
[2019-12-31] MEDS ORDERED: GABAPENTIN 300 MG CAPSULE. PO SCH (09:00)
[2019-12-31] MEDS ORDERED: IV NORMAL SALINE 1000ML BAG 1,000 ML IV PRN ×2 (09:19)
[2019-12-31] MEDS ORDERED: DIALYSIS PATIENT. MC PRN ×2 (09:30)
[2019-12-31] MEDS ORDERED: ALBUMIN HUMAN 25% 200 ML IV PRN (09:30)
--- NOTE | 2019-12-31 09:47 | PDOC ---
PROGRESS NOTES Subjective Subjective Patient seen in hemodialysis unit. Slightly more alert today but still nonverbal. Objective Objective Vital Signs Date Time Temp Pulse Resp B/P (MAP) Pulse Ox O2 Delivery O2 Flow Rate FiO2 12/31/19 07:50 Nasal Cannula 2.0 12/31/19 07:39 96 12/31/19 07:00 97.5 65 20 167/93 (117) 97.5 Intake and Output 12/31/19 07:00 Intake Total 340 ml Output Total 0 ml Balance 340 ml Intake Oral 340 ml Output Urine Total 0 ml # Voids 1 # Bowel Movements 1 Physical Exam Abdomen: Soft Heart: Other (Heart rate irregular, ESM aortic) Extremities: No edema General: Alert, No acute distress HEENT: Atraumatic Lungs: Clear to auscultation MUSCULOSKELETAL: No joint tenderness Assessment Assessment 1. Permanent AFIB, rate relatively well controlled. Continue beta-blockers. Hold Eliquis for now and continue aspirin. 2. Mental status changes, metabolic encephalopathy secondary to UTI. Continue antibiotics per ID team. 3. Chronic systolic heart failure, clinically well compensated. LVEF 40 to 45% . 4. CAD: 01/21/2019 [facility] mild to moderate LAD/LCx disease, occluded RCA with patent SVG graft. Clinically stable 5. Bioprosthetic AVR: Clinically stable 6. HTN: Slightly elevated. Increase lisinopril dose for better control. 7. ESRD: Continue hemodialysis per nephrology team. 8. COPD, stable 9. DM2/HLP: Per IM Plan Plan of Care Problems Medical Problems: (1) Acute on chronic renal failure Status: Acute (2) AMS (altered mental status) Status: Acute Comment Review of Relevant I have reviewed the following items nano (where applicable) has been applied. Labs Laboratory Tests Test 12/30/19 11:39 12/30/19 17:04 12/30/19 20:38 12/31/19 07:15 Glucose (Fingerstick) 194 mg/dL (70-99) 251 mg/dL (70-99) 212 mg/dL (70-99) 158 mg/dL (70-99) Medications Current Medications Acetaminophen/ Hydrocodone Bitart (Lortab 5/325) 1 tab Q6HRS PO Last administered on 12/31/19at 05:57; Start 12/30/19 at 11:00 Albumin Human 200 ml @ 200 mls/hr 1X PRN PRN IV Hypotension; Start 12/31/19 at 09:30; Stop 12/31/19 at 15:29 Albuterol Sulfate (Ventolin Neb Soln) 2.5 mg Q6HRS NEB Last administered on 12/31/19at 07:38; Start 12/30/19 at 12:00 Aspirin (Aspirin Chewable) 81 mg DAILY PO Last administered on 12/30/19 13:33; Start 12/30/19 at 10:00 Atorvastatin Calcium (Lipitor) 80 mg QHS PO Last administered on 12/30/19at 21:07; Start 12/30/19 at 21:00 Budesonide (Pulmicort) 0.5 mg RTBID NEB Last administered on 12/31/19 07:38; Start 12/30/19 at 11:00 Ceftriaxone Sodium (Rocephin) 1 gm Q24H IVP Last administered on 12/30/19at 13:36; Start 12/30/19 at 10:00 Citalopram Hydrobromide (CeleXA) 20 mg DAILY PO Last administered on 12/30/19at 13:33; Start 12/30/19 at 10:00 Dextrose (Dextrose 50%-Water Syringe) 12.5 gm PRN Q15MIN PRN IV SEE COMMENTS; Start 12/30/19 at 14:30 Famotidine (Pepcid) 20 mg QODAY PO Last administered on 12/30/19 13:33; Start 12/30/19 at 10:00 Gabapentin (Neurontin) 300 mg TuThSa PO ; Start 12/31/19 at 09:00 Hydralazine HCl (Apresoline) 37.5 mg TID PO Last administered on 12/30/19at 21:08; Start 12/30/19 at 10:00 Info (PHARMACY MONITORING -- do not chart) 1 each PRN DAILY PRN MC SEE COMMENTS; Start 12/31/19 at 09:30 Info (PHARMACY MONITORING -- do not chart) 1 each PRN DAILY PRN MC SEE COMMENTS; Start 12/31/19 at 09:30; Status UNV Insulin Glargine (Lantus Syringe) 10 unit BID SQ Last administered on 12/30/19at 21:11; Start 12/30/19 at 11:00 Insulin Human Lispro (HumaLOG) 0-5 UNITS TIDWMEALS SQ Last administered on 12/30/19at 17:38; Start 12/30/19 at 17:00 Lactobacillus Rhamnosus (Culturelle) 1 cap BID PO Last administered on 12/30/19at 21:07; Start 12/30/19 at 21:00 Lisinopril (Prinivil) 10 mg DAILY PO Last administered on 12/30/19at 13:35; Start 12/30/19 at 11:00; Stop 12/30/19 at 13:55; Status DC Lisinopril (Prinivil) 20 mg DAILY PO ; Start 12/31/19 at 09:00 Metoprolol Succinate (Toprol Xl) 100 mg HS PO Last administered on 12/30/19at 21:07; Start 12/30/19 at 21:00 Non-Formulary Medication (Budesonide/ Formoterol Fumarate (Symbicort 160-4.5 Mcg Inhaler)) 2 puff BID IH ; Start 12/30/19 at 21:00; Status UNV Non-Formulary Medication (Cephalexin (Keflex)) 1 cap BID PO ; Start 12/30/19 at 21:00; Status UNV Sodium Chloride 1,000 ml @ 400 mls/hr Q2H30M PRN IV PATENCY; Start 12/31/19 at 09:19; Stop 12/31/19 at 21:18 Sodium Chloride 1,000 ml @ 1,000 mls/hr Q1H PRN IV hypotension; Start 12/31/19 at 09:19; Stop 12/31/19 at 15:18 Sucralfate (Carafate) 1 gm QIDACHS PO Last administered on 12/30/19at 21:07; Start 12/30/19 at 11:30 Vitals/I & O Vital Sign - Last 24 Hours 12/30/19 12/30/19 12/30/19 12/30/19 10:50 11:47 13:34 13:35 Temp 97.6 97.6 Pulse 95 95 Resp 16 B/P (MAP) 168/97 (120) 168/97 Pulse Ox 100 96 96 O2 Delivery Nasal Cannula Nasal Cannula Nasal Cannula O2 Flow Rate 2.0 2.0 2.0 12/30/19 12/30/19 12/30/19 12/30/19 13:35 14:34 15:00 17:34 Temp 98.5 98.5 Pulse 95 92 92 Resp 18 16 B/P (MAP) 168/97 155/105 (122) 155/105 Pulse Ox 100 100 O2 Delivery Nasal Cannula Nasal Cannula O2 Flow Rate 2.0 2.0 12/30/19 12/30/19 12/30/19 12/30/19 18:42 19:10 19:14 19:16 Temp 97.5 97.5 Pulse 86 Resp 18 17 B/P (MAP) 165/101 (122) Pulse Ox 100 100 97 97 O2 Delivery Nasal Cannula Nasal Cannula Nasal Cannula Nasal Cannula O2 Flow Rate 2.0 2.0 2.0 2.0 12/30/19 12/30/19 12/30/19 12/30/19 19:30 19:42 21:07 21:08 Pulse 86 86 Resp 20 B/P (MAP) 165/101 165/101 O2 Delivery Nasal Cannula Nasal Cannula O2 Flow Rate 2.0 2.0 12/30/19 12/31/19 12/31/19 12/31/19 23:30 00:38 03:15 05:57 Temp 97.4 97.4 97.4 97.4 Pulse 83 82 Resp 19 18 20 B/P (MAP) 149/85 (106) 169/111 (130) Pulse Ox 98 100 O2 Delivery Nasal Cannula Nasal Cannula Nasal Cannula Nasal Cannula O2 Flow Rate 2.0 2.0 2.0 2.0 12/31/19 12/31/19 12/31/19 12/31/19 06:57 07:00 07:39 07:50 Temp 97.5 97.5 Pulse 65 Resp 20 20 B/P (MAP) 167/93 (117) Pulse Ox 100 96 O2 Delivery Nasal Cannula Nasal Cannula Nasal Cannula Nasal Cannula O2 Flow Rate 2.0 2.0 2.0 2.0 Intake and Output 12/30/19 12/30/19 12/31/19 15:00 23:00 07:00 Intake Total 240 ml 100 ml Output Total 0 ml Balance 240 ml 100 ml NADER SOTO MD Dec 31, 2019 09:47
--- NOTE | 2019-12-31 11:29 | PDOC ---
Infectious Disease Note Subjective Subjective Nonverbal No fevers last 24 hrs ate 25% breakfast Incontinent Vital Sign Vital Signs Vital Signs Date Time Temp Pulse Resp B/P (MAP) Pulse Ox O2 Delivery O2 Flow Rate FiO2 12/31/19 07:50 Nasal Cannula 2.0 12/31/19 07:39 96 12/31/19 07:00 97.5 65 20 167/93 (117) 97.5 Physical Exam PHYSICAL EXAM GENERAL: Propped up in bed, dialyzing in NAD HEENT: Oropharynx pink, moist. Some bacterial overgrowth on her tongue. LUNGS: Clear to auscultation. No accessory muscle use. HEART: S1 and S2 irregular, murmur present. ABDOMEN: Obese, soft, no guarding. EXTREMITIES: No gross edema or cyanosis. LUE-AV graft site unremarkable. SKIN: Warm to touch. No signs of rash. NEUROLOGIC: Nonverbal Labs Lab Laboratory Tests Test 12/30/19 11:39 12/30/19 17:04 12/30/19 20:38 12/31/19 07:15 Glucose (Fingerstick) 194 mg/dL (70-99) 251 mg/dL (70-99) 212 mg/dL (70-99) 158 mg/dL (70-99) Micro 12/26. URINE CULTURE Preliminary GREATER THAN 100,000 CFU/ML GRAM NEGATIVE RODS on 12/29/19 at 0945 FINAL ID= [ESCHERICHIA COLI] GREATER THAN 100,000 CFU/MLGRAM POSITIVE COCCI on 12/30/19 at 1337 FINAL ID= [STREP (BOVIS) GALLOLYTICUS] ESCHERICHIA COLI STREP (BOVIS) GALLOLYTICUS ANTIMICROBIAL SUSCEPTIBILITY Preliminary Comment NEG NEVA 56 ESCHERICHIA COLI ANTIBIOTIC RESULT INTERPRETATION AMPICILLIN/SULBACTAM 16/8 I AMIKACIN <=16 S AMPICILLIN >16 R AMOXICILLIN/K CLAVULANATE <=8/4 S AZTREONAM <=4 S CEFTRIAXONE <=1 S CEFTAZIDIME <=1 S CEFOTAXIME <=2 S CEFOXITIN <=8 S CIPROFLOXACIN <=0.25 S CEFEPIME <=2 S CEFUROXIME <=4 S CEFTAZIDIME/AVIBACTAM <=4 S ERTAPENEM <=0.5 S NITROFURANTOIN <=32 S GENTAMICIN <=2 S LEVOFLOXACIN <=0.5 S MEROPENEM <=1 S PIPERACILLIN/TAZOBACTAM <=8 S TRIMETHOPRIM/SULFAMETHOXAZOLE <=0.5/9.5 S TETRACYCLINE <=4 S TOBRAMYCIN <=2 S Objective Assessment Encephalopathy. According to the records and nursing staff, patient is normally able to talk some and follow commands at baseline. She is known to have periods of confusion that are not unusual for her. E. coli and Strep bovis UTI from 12/26. -Seen in ER here and given dose Rocephin and Rx Keflex CKD on HD via AV graft Bioprosthetic AVR Chronic CHF Chronic afib COPD Hypertension Cognitive communication deficits h/o E. coli (amp-R) in urine Plan Plan of Care Continue Rocephin (12/28) Maintain aspiration precautions Will need GI eval w/ Strep bovis Oral care Patient discussed with VALANCE CUTTER. Chart reviewed in detail. Above plan co-formulated and agreed upon with VALANCE CUTTER on 12/31/2019. STUART BRANDON APRN Dec 31, 2019 11:29 IBAN HUANG MD Jan 01, 2020 19:43
--- NOTE | 2019-12-31 11:46 | PDOC ---
SUBJECTIVE ROS Stable, opens eyes, Non verbal OBJECTIVE Vital Signs Vital Signs Date Time Temp Pulse Resp B/P (MAP) Pulse Ox O2 Delivery O2 Flow Rate FiO2 12/31/19 07:50 Nasal Cannula 2.0 12/31/19 07:39 96 12/31/19 07:00 97.5 65 20 167/93 (117) 97.5 I & 0 Intake and Output 12/31/19 07:00 Intake Total 340 ml Output Total 0 ml Balance 340 ml Intake Oral 340 ml Output Urine Total 0 ml # Voids 1 # Bowel Movements 1 PHYSICAL EXAM Physical Exam GENERAL: NAD HEENT: OM moist NECK: Supple, no JVD. LUNGS: Clear bilaterally. Diminished breath sounds at the bases. HEART: S1, S2 Systolic murmur at left sternal border. ABDOMEN: Soft, EXTREMITIES: No LE edema NEUROLOGIC: AMS No Yin DIAGNOSIS/ASSESSMENT Assessment & Plan ESRD - On HD TTS Seen on HD, tolerating well, continue as ordered, Hussain ZARATE UTI- E. coli UTI from 12/26.ID managing Mental status change-/encephalopathy According to the records, patient is normally able to talk some and follow commands at baseline and feed herself ,have periods of confusion Chronic systolic and diastolic heart failure- currently compensated clinically Anemia, chronic- stable Bioprosthetic AVR Chronic afib COPD- On O2 Hypertension- antihypertensives Cognitive communication deficits h COMMENT/RELEVANT DATA Meds Current Medications Medications (Trade) Dose Ordered Sig/Cristine Start Time Stop Time Status Last Admin Dose Admin Acetaminophen/ Hydrocodone Bitart (Lortab 5/325) 1 tab Q6HRS 12/30/19 11:00 12/31/19 05:57 1 TAB Albumin Human 200 ml @ 200 mls/hr 1X PRN PRN 12/31/19 09:30 12/31/19 15:29 Albuterol Sulfate (Ventolin Neb Soln) 2.5 mg Q6HRS 12/30/19 12:00 12/31/19 07:38 2.5 MG Amino Acids/ Glycerin/ Electrolytes 1,000 ml @ 60 mls/hr [id number] 12/29/19 20:00 12/30/19 23:02 60 MLS/HR Aspirin (Aspirin Chewable) 81 mg DAILY 12/30/19 10:00 12/30/19 13:33 81 MG Atorvastatin Calcium (Lipitor) 80 mg QHS 12/30/19 21:00 12/30/19 21:07 80 MG Budesonide (Pulmicort) 0.5 mg RTBID 12/30/19 11:00 12/31/19 07:38 0.5 MG Ceftriaxone Sodium (Rocephin) 1 gm Q24H 12/30/19 10:00 12/30/19 13:36 1 GM Citalopram Hydrobromide (CeleXA) 20 mg DAILY 12/30/19 10:00 12/30/19 13:33 20 MG Dextrose (Dextrose 50%-Water Syringe) 12.5 gm PRN Q15MIN PRN 12/30/19 14:30 Famotidine (Pepcid) 20 mg QODAY 12/30/19 10:00 12/30/19 13:33 20 MG Gabapentin (Neurontin) 300 mg TuThSa 12/31/19 09:00 Hydralazine HCl (Apresoline) 37.5 mg TID 12/30/19 10:00 12/30/19 21:08 37.5 MG Info (PHARMACY MONITORING -- do not chart) 1 each PRN DAILY PRN 12/31/19 09:30 Insulin Glargine (Lantus Syringe) 10 unit BID 12/30/19 11:00 12/30/19 21:11 10 UNIT Insulin Human Lispro (HumaLOG) 0-5 UNITS TIDWMEALS 12/30/19 17:00 12/30/19 17:38 3 UNITS Lactobacillus Rhamnosus (Culturelle) 1 cap BID 12/30/19 21:00 12/30/19 21:07 1 CAP Lisinopril (Prinivil) 20 mg DAILY 12/31/19 09:00 Metoprolol Succinate (Toprol Xl) 100 mg HS 12/30/19 21:00 12/30/19 21:07 100 MG Non-Formulary Medication (Budesonide/ Formoterol Fumarate (Symbicort 160-4.5 Mcg Inhaler)) 2 puff BID 12/30/19 21:00 UNV Non-Formulary Medication (Cephalexin (Keflex)) 1 cap BID 12/30/19 21:00 UNV Sodium Chloride 1,000 ml @ 400 mls/hr Q2H30M PRN 12/31/19 09:19 12/31/19 21:18 Sucralfate (Carafate) 1 gm QIDACHS 12/30/19 11:30 12/30/19 21:07 1 GM Lab Laboratory Tests Test 12/30/19 17:04 12/30/19 20:38 12/31/19 07:15 Glucose (Fingerstick) 251 mg/dL (70-99) 212 mg/dL (70-99) 158 mg/dL (70-99) Results All relevant outside records, renal labs, imaging studies, telemetry/EKG's were reviewed. Justicifation of Admission Dx: Justifications for Admission: Justification of Admission Dx: Yes (ams, renal failure) RAS LONG MD Dec 31, 2019 11:46
--- NOTE | 2019-12-31 12:07 | PDOC ---
PROGRESS NOTES Chief Complaint Chief Complaint acute Mental status change-/ metabolic encephalopathy dementia at [facility] ESRD - UTI- E. coli UTI from 12/26 Chronic systolic and diastolic heart failure- atrial fibrillation is rate contrrolled COPD- w/ chonic hypoxia, Hypertension- antihypertensives History of Present Illness History of Present Illness doing better cont current eating some cont PPN as amt of PO intake is poor long list of problems, poor prognosis, Vitals Vitals Vital Signs Date Time Temp Pulse Resp B/P (MAP) Pulse Ox O2 Delivery O2 Flow Rate FiO2 12/31/19 07:50 Nasal Cannula 2.0 12/31/19 07:39 96 12/31/19 07:00 97.5 65 20 167/93 (117) 97.5 Physical Exam Physical Exam GENERAL: Propped up in bed, dialyzing in NAD HEENT: Oropharynx pink, moist. Some bacterial overgrowth on her tongue. LUNGS: Clear to auscultation. No accessory muscle use. HEART: S1 and S2 irregular, murmur present. ABDOMEN: Obese, soft, no guarding. EXTREMITIES: No gross edema or cyanosis. LUE-AV graft site unremarkable. SKIN: Warm to touch. No signs of rash. NEUROLOGIC: Nonverbal General: Alert, No acute distress Heart: Other (Heart rate irregular, ESM aortic) Lungs: Clear, Other Abdomen: Soft Extremities: No edema Labs LABS Laboratory Tests Test 12/30/19 17:04 12/30/19 20:38 12/31/19 07:15 Glucose (Fingerstick) 251 mg/dL (70-99) 212 mg/dL (70-99) 158 mg/dL (70-99) Assessment and Plan Assessmemt and Plan Problems Medical Problems: (1) Acute on chronic renal failure Status: Acute (2) AMS (altered mental status) Status: Acute Comment Review of Relevant I have reviewed the following items nano (where applicable) has been applied. Labs Laboratory Tests Test 12/29/19 20:12 12/30/19 00:27 12/30/19 07:28 12/30/19 09:00 Glucose (Fingerstick) 156 mg/dL (70-99) 187 mg/dL (70-99) 181 mg/dL (70-99) White Blood Count 6.5 x10^3/uL (4.0-11.0) Red Blood Count 4.75 x10^6/uL (3.50-5.40) Hemoglobin 13.1 g/dL (12.0-15.5) Hematocrit 40.5 % (36.0-47.0) Mean Corpuscular Volume 85 fL (79-100) Mean Corpuscular Hemoglobin 28 pg (25-35) Mean Corpuscular Hemoglobin Concent 32 g/dL (31-37) Red Cell Distribution Width 18.1 % (11.5-14.5) Platelet Count 235 x10^3/uL (140-400) Neutrophils (%) (Auto) 63 % (31-73) Lymphocytes (%) (Auto) 22 % (24-48) Monocytes (%) (Auto) 14 % (0-9) Eosinophils (%) (Auto) 0 % (0-3) Basophils (%) (Auto) 1 % (0-3) Neutrophils # (Auto) 4.1 x10^3/uL (1.8-7.7) Lymphocytes # (Auto) 1.4 x10^3/uL (1.0-4.8) Monocytes # (Auto) 0.9 x10^3/uL (0.0-1.1) Eosinophils # (Auto) 0.0 x10^3/uL (0.0-0.7) Basophils # (Auto) 0.1 x10^3/uL (0.0-0.2) Sodium Level 136 mmol/L (136-145) Potassium Level 4.6 mmol/L (3.5-5.1) Chloride Level 98 mmol/L (98-107) Carbon Dioxide Level 28 mmol/L (21-32) Anion Gap 10 (6-14) Blood Urea Nitrogen 37 mg/dL (7-20) Creatinine 3.4 mg/dL (0.6-1.0) Estimated GFR (Cockcroft-Gault) 16.0 BUN/Creatinine Ratio 11 (6-20) Glucose Level 192 mg/dL (70-99) Calcium Level 9.0 mg/dL (8.5-10.1) Total Bilirubin 0.7 mg/dL (0.2-1.0) Aspartate Amino Transf (AST/SGOT) 30 U/L (15-37) Alanine Aminotransferase (ALT/SGPT) 36 U/L (14-59) Alkaline Phosphatase 115 U/L (46-116) Total Protein 6.0 g/dL (6.4-8.2) Albumin 2.9 g/dL (3.4-5.0) Albumin/Globulin Ratio 0.9 (1.0-1.7) Test 12/30/19 11:39 12/30/19 17:04 12/30/19 20:38 12/31/19 07:15 Glucose (Fingerstick) 194 mg/dL (70-99) 251 mg/dL (70-99) 212 mg/dL (70-99) 158 mg/dL (70-99) Laboratory Tests Test 12/30/19 17:04 12/30/19 20:38 12/31/19 07:15 Glucose (Fingerstick) 251 mg/dL (70-99) 212 mg/dL (70-99) 158 mg/dL (70-99) Medications Current Medications Ceftriaxone Sodium (Rocephin) 1 gm 1X ONCE IVP Last administered on 12/29/19at 13:00; Start 12/29/19 at 13:00; Stop 12/29/19 at 13:01; Status DC Sodium Chloride 1,000 ml @ 1,000 mls/hr Q1H PRN IV hypotension; Start 12/29/19 at 14:54; Stop 12/29/19 at 20:53; Status DC Albumin Human 200 ml @ 200 mls/hr 1X PRN PRN IV Hypotension; Start 12/29/19 at 15:00; Stop 12/29/19 at 20:59; Status DC Sodium Chloride 1,000 ml @ 400 mls/hr Q2H30M PRN IV PATENCY; Start 12/29/19 at 14:54; Stop 12/30/19 at 02:53; Status DC Info (PHARMACY MONITORING -- do not chart) 1 each PRN DAILY PRN MC SEE COMMENTS; Start 12/29/19 at 15:00; Status UNV Info (PHARMACY MONITORING -- do not chart) 1 each PRN DAILY PRN MC SEE COMMENTS; Start 12/29/19 at 15:00; Status Cancel Amino Acids/ Glycerin/ Electrolytes 1,000 ml @ 60 mls/hr [id number] IV Last administered on 12/30/19at 23:02; Start 12/29/19 at 20:00 Ceftriaxone Sodium (Rocephin) 1 gm Q24H IVP Last administered on 12/30/19 13:36; Start 12/30/19 at 10:00 Aspirin (Aspirin Chewable) 81 mg DAILY PO Last administered on 12/30/19 13:33; Start 12/30/19 at 10:00 Citalopram Hydrobromide (CeleXA) 20 mg DAILY PO Last administered on 12/30/19at 13:33; Start 12/30/19 at 10:00 Famotidine (Pepcid) 20 mg QODAY PO Last administered on 12/30/19 13:33; Start 12/30/19 at 10:00 Gabapentin (Neurontin) 300 mg TuThSa PO ; Start 12/31/19 at 09:00 Hydralazine HCl (Apresoline) 37.5 mg TID PO Last administered on 12/30/19at 21:08; Start 12/30/19 at 10:00 Acetaminophen/ Hydrocodone Bitart (Lortab 5/325) 1 tab Q6HRS PO Last administered on 12/31/19at 05:57; Start 12/30/19 at 11:00 Lisinopril (Prinivil) 10 mg DAILY PO Last administered on 12/30/19 13:35; Start 12/30/19 at 11:00; Stop 12/30/19 at 13:55; Status DC Metoprolol Succinate (Toprol Xl) 100 mg HS PO Last administered on 12/30/19 21:07; Start 12/30/19 at 21:00 Sucralfate (Carafate) 1 gm QIDACHS PO Last administered on 12/30/19at 21:07; Start 12/30/19 at 11:30 Atorvastatin Calcium (Lipitor) 80 mg QHS PO Last administered on 12/30/19 21:07; Start 12/30/19 at 21:00 Non-Formulary Medication (Budesonide/ Formoterol Fumarate (Symbicort 160-4.5 Mcg Inhaler)) 2 puff BID IH ; Start 12/30/19 at 21:00; Status UNV Non-Formulary Medication (Cephalexin (Keflex)) 1 cap BID PO ; Start 12/30/19 at 21:00; Status UNV Insulin Glargine (Lantus Syringe) 10 unit BID SQ Last administered on 12/30/19at 21:11; Start 12/30/19 at 11:00 Lactobacillus Rhamnosus (Culturelle) 1 cap BID PO Last administered on 12/30/19at 21:07; Start 12/30/19 at 21:00 Budesonide (Pulmicort) 0.5 mg RTBID NEB Last administered on 12/31/19at 07:38; Start 12/30/19 at 11:00 Albuterol Sulfate (Ventolin Neb Soln) 2.5 mg Q6HRS NEB Last administered on 12/31/19at 07:38; Start 12/30/19 at 12:00 Lisinopril (Prinivil) 20 mg DAILY PO ; Start 12/31/19 at 09:00 Insulin Human Lispro (HumaLOG) 0-5 UNITS TIDWMEALS SQ Last administered on 12/30/19at 17:38; Start 12/30/19 at 17:00 Dextrose (Dextrose 50%-Water Syringe) 12.5 gm PRN Q15MIN PRN IV SEE COMMENTS; Start 12/30/19 at 14:30 Sodium Chloride 1,000 ml @ 1,000 mls/hr Q1H PRN IV hypotension; Start 12/31/19 at 09:19; Stop 12/31/19 at 15:18 Albumin Human 200 ml @ 200 mls/hr 1X PRN PRN IV Hypotension; Start 12/31/19 at 09:30; Stop 12/31/19 at 15:29 Sodium Chloride 1,000 ml @ 400 mls/hr Q2H30M PRN IV PATENCY; Start 12/31/19 at 09:19; Stop 12/31/19 at 21:18 Info (PHARMACY MONITORING -- do not chart) 1 each PRN DAILY PRN MC SEE COMMENTS; Start 12/31/19 at 09:30; Status UNV Info (PHARMACY MONITORING -- do not chart) 1 each PRN DAILY PRN MC SEE COMMENTS; Start 12/31/19 at 09:30 Active Scripts Active Keflex (Cephalexin) 500 Mg Capsule 1 Cap PO BID 5 Days Reported Bidil Tablet (Isosorb Dinit/Hydralazine Hcl) 1 Each Tablet 1 Each PO SUMOWEFR Bidil Tablet (Isosorb Dinit/Hydralazine Hcl) 1 Each Tablet 1 Each PO HS Metoprolol Succinate ( Xl ) (Metoprolol Succinate) 100 Mg Tab.er.24h 1 Tab PO HS Eliquis (Apixaban) 2.5 Mg Tablet 2.5 Mg PO QMWF Eliquis (Apixaban) 2.5 Mg Tablet 2.5 Mg PO HS Aspirin 81 Mg Tab.chew 1 Tab PO HS Isosorbide Dinitrate 30 Mg Tablet 20 Mg PO TID Hydralazine Hcl 25 Mg Tablet 37.5 Mg PO TID Lisinopril 10 Mg Tablet 1 Tab PO DAILY Famotidine 20 Mg Tablet 20 Mg PO QODAY Take at bedtime every other day. Next dose: 09/22/2019 Gabapentin (Gabapentin) 300 Mg Capsule 300 Mg PO QTUTHSA Take after dialysis [place] 5-325 Tablet (Acetaminophen/Hydrocodone Bitart) 1 Each Tablet 1 Tab PO Q6HRS Novolin N Flexpen (Insulin NPH Human Isophane) 100 Unit/1 Ml Insuln.pen 10 Unit SQ BID Carafate (Sucralfate) 1 Gm Tablet 1 Tab PO QID 30 Days Children's Aspirin (Aspirin) 81 Mg Tab.chew 81 Mg PO DAILY Atorvastatin Calcium 80 Mg Tablet 1 Tab PO HS Celexa (Citalopram Hydrobromide) 20 Mg Tablet 1 Tab PO DAILY [facility] Rx Tablet (Vit B Cmplx 3/Fa/Vit C/Biotin) 1 Each Tablet 1 Each PO DAILY Symbicort 160-4.5 Mcg Inhaler (Budesonide/Formoterol Fumarate) 10.2 Gm Hfa.aer.ad 2 Puff IH BID Vitals/I & O Vital Sign - Last 24 Hours 12/30/19 12/30/19 12/30/19 12/30/19 13:34 13:35 13:35 14:34 Pulse 95 95 Resp 18 B/P (MAP) 168/97 168/97 Pulse Ox 96 100 O2 Delivery Nasal Cannula Nasal Cannula O2 Flow Rate 2.0 2.0 12/30/19 12/30/19 12/30/19 12/30/19 15:00 17:34 18:42 19:10 Temp 98.5 97.5 98.5 97.5 Pulse 92 92 86 Resp 16 18 17 B/P (MAP) 155/105 (122) 155/105 165/101 (122) Pulse Ox 100 100 100 O2 Delivery Nasal Cannula Nasal Cannula Nasal Cannula O2 Flow Rate 2.0 2.0 2.0 12/30/19 12/30/19 12/30/19 12/30/19 19:14 19:16 19:30 19:42 Resp 20 Pulse Ox 97 97 O2 Delivery Nasal Cannula Nasal Cannula Nasal Cannula Nasal Cannula O2 Flow Rate 2.0 2.0 2.0 2.0 12/30/19 12/30/19 12/30/19 12/31/19 21:07 21:08 23:30 00:38 Temp 97.4 97.4 Pulse 86 86 83 Resp 19 B/P (MAP) 165/101 165/101 149/85 (106) Pulse Ox 98 O2 Delivery Nasal Cannula Nasal Cannula O2 Flow Rate 2.0 2.0 12/31/19 12/31/19 12/31/19 12/31/19 03:15 05:57 06:57 07:00 Temp 97.4 97.5 97.4 97.5 Pulse 82 65 Resp 18 20 20 20 B/P (MAP) 169/111 (130) 167/93 (117) Pulse Ox 100 100 O2 Delivery Nasal Cannula Nasal Cannula Nasal Cannula Nasal Cannula O2 Flow Rate 2.0 2.0 2.0 2.0 12/31/19 12/31/19 07:39 07:50 Pulse Ox 96 O2 Delivery Nasal Cannula Nasal Cannula O2 Flow Rate 2.0 2.0 Intake and Output 12/30/19 12/30/19 12/31/19 15:00 23:00 07:00 Intake Total 240 ml 100 ml Output Total 0 ml Balance 240 ml 100 ml Nutrition Consultation Dietary Evaluation: Recommendations by RD: Dietary education by RD, Increase Calorie Intake, Protein supplementation, PPN/TPN Comments: Continue w/PPN for short-term nutrition needs while pt remains NPO REC advance diet as able pending mental status and bedside swallow eval results, goal diet renal/ADA w/nepro supplements prn/per pt preference Expected Outcomes/Goals: Diet advancement Malnutrition Findings: Food and Nutrition Intake (Sev: <50% est energy req 5days Weight Status: Appropriate Justicifation of Admission Dx: Justifications for Admission: Justification of Admission Dx: Yes (ams, renal failure) KEILY COLE MD Dec 31, 2019 12:07
[2019-12-31 13:51] VITALS: BP 163/106
[2019-12-31 14:32] VITALS: BP 168/91
[2019-12-31] MEDS: cefTRIAXone IV Push 1 GM VIAL. IVP SCH (14:57)
--- NOTE | 2019-12-31 17:56 | RAD ---
Exam: Chest one view INDICATION: Hypoxia TECHNIQUE: Frontal view of the chest Comparisons: 12/29/2019 FINDINGS: Sternotomy wires and replaced cardiac valve are noted. Heart is enlarged. Pulmonary vessels are within normal limits. Hazy opacities in lungs bilaterally. No pleural effusion. IMPRESSION: Hazy bilateral airspace disease may relate to pulmonary edema. Superimposed infectious process is difficult to exclude. Electronically signed by: Ke Felton MD (12/31/2019 5:53 PM) [id number]
[2019-12-31 19:14] VITALS: BP 162/96
[2019-12-31] MEDS: ATORVASTATIN CALCIUM 40 MG TABLET. PO SCH (21:20)
[2019-12-31] MEDS: METOPROLOL SUCC 24HR ER 100 MG TAB.ER.24H. PO SCH (21:21)
[2019-12-31] MEDS: AMINO AC 3%/ELECTROLYTE/GLYCER 1,000 ML IV SCH (21:21)
[2019-12-31 22:50] VITALS: BP 136/79
[2020-01-01] VITALS (7 sets, daily range): BP systolic 145–163; BP diastolic 82–98
[2020-01-01] MEDS: ALBUTEROL SULFATE 2.5 MG/3 ML NEBU. NEB SCH ×5 (00:36→21:00)
[2020-01-01] MEDS: HYDROcodone/APAP 5/325MG 1 TAB TABLET PO SCH ×2 (05:39→12:24)
[2020-01-01] MEDS: BUDESONIDE 0.5 MG/2 ML NEBU. NEB SCH ×2 (07:51→21:00)
[2020-01-01] MEDS: INSULIN LISPRO 300 UNITS/3 ML VIAL. SQ SCH ×3 (08:00→17:00)
[2020-01-01] MEDS: AMINO AC 3%/ELECTROLYTE/GLYCER 1,000 ML IV SCH (08:44)
[2020-01-01] MEDS: CITALOPRAM 20 MG TABLET. PO SCH (09:25)
[2020-01-01] MEDS: ASPIRIN CHEWABLE 81 MG TABLET. PO SCH (09:25)
[2020-01-01] MEDS: SUCRALFATE 1 GM TABLET. PO SCH ×4 (09:25→22:02)
[2020-01-01] MEDS: FAMOTIDINE 20 MG TABLET. PO SCH (09:25)
[2020-01-01] MEDS: LACTOBACILLUS RHAMNOSUS GG 1 CAPSULE. PO SCH ×2 (09:25→22:02)
[2020-01-01] MEDS: hydrALAZINE 25 MG TABLET PO SCH ×3 (09:26→22:04)
[2020-01-01] MEDS: LISINOPRIL 20 MG TABLET PO SCH (09:27)
[2020-01-01] MEDS: INSULIN GLARGINE SYRINGE. SQ SCH ×2 (09:29→21:00)
--- NOTE | 2020-01-01 10:57 | PDOC ---
Infectious Disease Note Subjective Subjective More alert and responsive this morning Comfortable, denies pain/upset stomach or SOA 2L O2 No fevers last 48 hrs Incontinent PPN ROS ROS as mentioned above Vital Sign Vital Signs Vital Signs Date Time Temp Pulse Resp B/P (MAP) Pulse Ox O2 Delivery O2 Flow Rate FiO2 01/01/20 09:27 160/96 01/01/20 09:26 77 01/01/20 07:58 Nasal Cannula 2.0 01/01/20 07:52 96 01/01/20 07:00 97.3 18 97.3 Physical Exam PHYSICAL EXAM GENERAL: Propped up in bed, alert and smiling HEENT: Oropharynx pink, moist. Some bacterial overgrowth on her tongue. LUNGS: Clear to auscultation. No accessory muscle use. HEART: S1 and S2 irregular, murmur present. ABDOMEN: Obese, soft, no guarding. EXTREMITIES: No gross edema or cyanosis. LUE-AV graft site unremarkable. SKIN: Warm to touch. No signs of rash. NEUROLOGIC: Alert, answering questions and following commands Labs Lab Laboratory Tests Test 12/31/19 13:48 12/31/19 16:37 12/31/19 20:31 01/01/20 07:21 Glucose (Fingerstick) 111 mg/dL (70-99) 130 mg/dL (70-99) 142 mg/dL (70-99) 129 mg/dL (70-99) CXR, 12/30 IMPRESSION: Hazy bilateral airspace disease may relate to pulmonary edema. Superimposed infectious process is difficult to exclude. Micro 12/26. URINE CULTURE Preliminary GREATER THAN 100,000 CFU/ML GRAM NEGATIVE RODS on 12/29/19 at 0945 FINAL ID= [ESCHERICHIA COLI] GREATER THAN 100,000 CFU/MLGRAM POSITIVE COCCI on 12/30/19 at 1337 FINAL ID= [STREP (BOVIS) GALLOLYTICUS] ESCHERICHIA COLI STREP (BOVIS) GALLOLYTICUS ANTIMICROBIAL SUSCEPTIBILITY Preliminary Comment NEG NEVA 56 ESCHERICHIA COLI ANTIBIOTIC RESULT INTERPRETATION AMPICILLIN/SULBACTAM 16/8 I AMIKACIN <=16 S AMPICILLIN >16 R AMOXICILLIN/K CLAVULANATE <=8/4 S AZTREONAM <=4 S CEFTRIAXONE <=1 S CEFTAZIDIME <=1 S CEFOTAXIME <=2 S CEFOXITIN <=8 S CIPROFLOXACIN <=0.25 S CEFEPIME <=2 S CEFUROXIME <=4 S CEFTAZIDIME/AVIBACTAM <=4 S ERTAPENEM <=0.5 S NITROFURANTOIN <=32 S GENTAMICIN <=2 S LEVOFLOXACIN <=0.5 S MEROPENEM <=1 S PIPERACILLIN/TAZOBACTAM <=8 S TRIMETHOPRIM/SULFAMETHOXAZOLE <=0.5/9.5 S TETRACYCLINE <=4 S TOBRAMYCIN <=2 S 12/28. URINE CULTURE Preliminary Preliminary >100,000 CFU/ML GRAM NEGATIVE RODS on 12/31/19 at 1434 FINAL ID= [ESCHERICHIA COLI] Three or more organisms isolated. Results consistent with colonization or contamination during the collection process. Objective Assessment Encephalopathy. According to the records and nursing staff, patient is normally able to talk some and follow commands at baseline. She is known to have periods of confusion that are not unusual for her. better today E. coli and Strep bovis UTI from 12/26. -Seen in ER here and given dose Rocephin and Rx Keflex, 12/26 -Repeat UC 12/28 + E. coli and 3 or more organisms isolated, consistent w/ colonization or contamination. CKD on HD via AV graft Bioprosthetic AVR Chronic CHF Chronic afib COPD Hypertension Cognitive communication deficits h/o E. coli (amp-R) in urine Plan Plan of Care Continue Rocephin (12/28) Maintain aspiration precautions Will need GI eval w/ Strep bovis Oral care D/w nursing Patient discussed with LEGAL BILLING SPECIALIST. Chart reviewed in detail. Above plan co-formulated and agreed upon with LEGAL BILLING SPECIALIST on 12/31/2019. STUART BRANDON APRN Jan 01, 2020 10:57 IBAN HUANG MD Jan 01, 2020 19:43
[2020-01-01] MEDS: cefTRIAXone IV Push 1 GM VIAL. IVP SCH (12:23)
[2020-01-01] MEDS ORDERED: HYDROcodone/APAP 5/325MG 1 TAB TABLET PO PRN (12:30)
--- NOTE | 2020-01-01 12:35 | PDOC ---
PROGRESS NOTES Subjective Subjective More alert and responsive, denies any shortness of breath Objective Objective Vital Signs Date Time Temp Pulse Resp B/P (MAP) Pulse Ox O2 Delivery O2 Flow Rate FiO2 01/01/20 12:24 98 Nasal Cannula 2.0 01/01/20 11:00 96.9 78 18 152/87 (108) 96.9 Intake and Output 01/01/20 07:00 Intake Total 700 ml Balance 700 ml Intake Oral 100 ml Other 600 ml # Voids 2 Physical Exam Abdomen: Soft Heart: Other (Heart rate irregular, ESM aortic) Extremities: No edema General: Alert, No acute distress HEENT: Atraumatic Lungs: Clear to auscultation MUSCULOSKELETAL: No joint tenderness Assessment Assessment 1. Permanent AFIB, rate relatively well controlled. Continue beta-blockers. Hold Eliquis for now and continue aspirin. 2. Mental status changes, metabolic encephalopathy secondary to UTI. Continue antibiotics per ID team. 3. Chronic systolic heart failure, clinically well compensated. LVEF 40 to 45%. 4. CAD: 01/21/2019 C mild to moderate LAD/LCx disease, occluded RCA with patent SVG graft. Clinically stable 5. Bioprosthetic AVR: Clinically stable 6. HTN: Better controlled 7. ESRD: Continue hemodialysis per nephrology team. 8. COPD, stable 9. DM2/HLP: Per IM Plan Plan of Care Problems Medical Problems: (1) Acute on chronic renal failure Status: Acute (2) AMS (altered mental status) Status: Acute Comment Review of Relevant I have reviewed the following items nano (where applicable) has been applied. Labs Laboratory Tests Test 12/31/19 13:48 12/31/19 16:37 12/31/19 20:31 01/01/20 07:21 Glucose (Fingerstick) 111 mg/dL (70-99) 130 mg/dL (70-99) 142 mg/dL (70-99) 129 mg/dL (70-99) Test 01/01/20 12:06 Glucose (Fingerstick) 227 mg/dL (70-99) Microbiology 12/29/19 Urine Culture - Preliminary, Resulted Medications Current Medications Acetaminophen/ Hydrocodone Bitart (Lortab 5/325) 1 tab Q4HRS PRN PO PAIN; Start 01/01/20 at 12:30 Vitals/I & O Vital Sign - Last 24 Hours 12/31/19 12/31/19 12/31/19 12/31/19 13:51 14:32 19:14 19:48 Temp 97.5 98.7 97.5 98.7 Pulse 78 79 79 Resp 18 18 14 B/P (MAP) 163/106 (125) 168/91 (116) 162/96 (118) Pulse Ox 100 100 98 O2 Delivery Nasal Cannula Nasal Cannula Nasal Cannula Nasal Cannula O2 Flow Rate 2.0 2.0 2.0 2.0 12/31/19 12/31/19 12/31/19 12/31/19 19:49 19:50 21:20 21:21 Pulse 79 79 B/P (MAP) 162/96 162/96 Pulse Ox 98 O2 Delivery Nasal Cannula Nasal Cannula O2 Flow Rate 2.0 2.0 12/31/19 01/01/20 01/01/20 01/01/20 22:50 00:37 03:23 07:00 Temp 98.5 98.3 97.3 98.5 98.3 97.3 Pulse 73 88 78 Resp 14 14 18 B/P (MAP) 136/79 (98) 163/98 (119) 160/96 (117) Pulse Ox 99 96 99 100 O2 Delivery Nasal Cannula Nasal Cannula Nasal Cannula Nasal Cannula O2 Flow Rate 2.0 2.0 2.0 2.0 01/01/20 01/01/20 01/01/20 01/01/20 07:52 07:58 09:26 09:27 Pulse 77 B/P (MAP) 160/96 160/96 Pulse Ox 96 O2 Delivery Nasal Cannula Nasal Cannula O2 Flow Rate 2.0 2.0 01/01/20 01/01/20 11:00 12:24 Temp 96.9 96.9 Pulse 78 Resp 18 B/P (MAP) 152/87 (108) Pulse Ox 98 98 O2 Delivery Nasal Cannula Nasal Cannula O2 Flow Rate 2.0 2.0 Intake and Output 12/31/19 12/31/19 01/01/20 15:00 23:00 07:00 Intake Total 50 ml 650 ml 0 ml Balance 50 ml 650 ml 0 ml NADER SOTO MD Jan 01, 2020 12:35
--- NOTE | 2020-01-01 16:33 | PDOC ---
PROGRESS NOTES Chief Complaint Chief Complaint acute Mental status change-/ metabolic encephalopathy dementia at [facility] ESRD - UTI- E. coli UTI from 12/26 Chronic systolic and diastolic heart failure- atrial fibrillation is rate contrrolled COPD- w/ chonic hypoxia, Hypertension- antihypertensives History of Present Illness History of Present Illness was talking to the RN at night, reportedly, does not talk to me much still, doing better cont current eating some will DC then PPN as amt of PO intake is much better today, may be near her baseline, will DC tele, plan DC to prior NH tomrrow long list of problems, poor prognosis, Vitals Vitals Vital Signs Date Time Temp Pulse Resp B/P (MAP) Pulse Ox O2 Delivery O2 Flow Rate FiO2 01/01/20 15:19 153/85 01/01/20 15:18 98.0 64 18 99 Nasal Cannula 2.0 98.0 Physical Exam Physical Exam GENERAL: Propped up in bed, alert and smiling HEENT: Oropharynx pink, moist. Some bacterial overgrowth on her tongue. LUNGS: Clear to auscultation. No accessory muscle use. HEART: S1 and S2 irregular, murmur present. ABDOMEN: Obese, soft, no guarding. EXTREMITIES: No gross edema or cyanosis. LUE-AV graft site unremarkable. SKIN: Warm to touch. No signs of rash. NEUROLOGIC: Alert, answering questions and following commands General: Alert, No acute distress Heart: Other (Heart rate irregular, ESM aortic) Lungs: Clear, Other Abdomen: Soft Extremities: No edema Labs LABS Laboratory Tests Test 12/31/19 16:37 12/31/19 20:31 01/01/20 07:21 01/01/20 12:06 Glucose (Fingerstick) 130 mg/dL (70-99) 142 mg/dL (70-99) 129 mg/dL (70-99) 227 mg/dL (70-99) Assessment and Plan Assessmemt and Plan Problems Medical Problems: (1) Acute on chronic renal failure Status: Acute (2) AMS (altered mental status) Status: Acute Comment Review of Relevant I have reviewed the following items nano (where applicable) has been applied. Labs Laboratory Tests Test 12/30/19 17:04 12/30/19 20:38 12/31/19 07:15 12/31/19 13:48 Glucose (Fingerstick) 251 mg/dL (70-99) 212 mg/dL (70-99) 158 mg/dL (70-99) 111 mg/dL (70-99) Test 12/31/19 16:37 12/31/19 20:31 01/01/20 07:21 01/01/20 12:06 Glucose (Fingerstick) 130 mg/dL (70-99) 142 mg/dL (70-99) 129 mg/dL (70-99) 227 mg/dL (70-99) Laboratory Tests Test 12/31/19 16:37 12/31/19 20:31 01/01/20 07:21 01/01/20 12:06 Glucose (Fingerstick) 130 mg/dL (70-99) 142 mg/dL (70-99) 129 mg/dL (70-99) 227 mg/dL (70-99) Microbiology 12/29/19 Urine Culture - Preliminary, Resulted Medications Current Medications Ceftriaxone Sodium (Rocephin) 1 gm 1X ONCE IVP Last administered on 12/29/19at 13:00; Start 12/29/19 at 13:00; Stop 12/29/19 at 13:01; Status DC Sodium Chloride 1,000 ml @ 1,000 mls/hr Q1H PRN IV hypotension; Start 12/29/19 at 14:54; Stop 12/29/19 at 20:53; Status DC Albumin Human 200 ml @ 200 mls/hr 1X PRN PRN IV Hypotension; Start 12/29/19 at 15:00; Stop 12/29/19 at 20:59; Status DC Sodium Chloride 1,000 ml @ 400 mls/hr Q2H30M PRN IV PATENCY; Start 12/29/19 at 14:54; Stop 12/30/19 at 02:53; Status DC Info (PHARMACY MONITORING -- do not chart) 1 each PRN DAILY PRN MC SEE COMMENTS; Start 12/29/19 at 15:00; Status UNV Info (PHARMACY MONITORING -- do not chart) 1 each PRN DAILY PRN MC SEE COMMENTS; Start 12/29/19 at 15:00; Status Cancel Amino Acids/ Glycerin/ Electrolytes 1,000 ml @ 60 mls/hr [id number] IV Last administered on 12/31/19at 21:21; Start 12/29/19 at 20:00; Stop 01/01/20 at 12:22; Status DC Ceftriaxone Sodium (Rocephin) 1 gm Q24H IVP Last administered on 01/01/20at 12:23; Start 12/30/19 at 10:00 Aspirin (Aspirin Chewable) 81 mg DAILY PO Last administered on 01/01/20 09:25; Start 12/30/19 at 10:00 Citalopram Hydrobromide (CeleXA) 20 mg DAILY PO Last administered on 01/01/20at 09:25; Start 12/30/19 at 10:00 Famotidine (Pepcid) 20 mg QODAY PO Last administered on 01/01/20 09:25; Start 12/30/19 at 10:00 Gabapentin (Neurontin) 300 mg TuThSa PO ; Start 12/31/19 at 09:00 Hydralazine HCl (Apresoline) 37.5 mg TID PO Last administered on 01/01/20at 15:19; Start 12/30/19 at 10:00 Acetaminophen/ Hydrocodone Bitart (Lortab 5/325) 1 tab Q6HRS PO Last administered on 01/01/20at 12:24; Start 12/30/19 at 11:00; Stop 01/01/20 at 12:25; Status DC Lisinopril (Prinivil) 10 mg DAILY PO Last administered on 12/30/19at 13:35; Start 12/30/19 at 11:00; Stop 12/30/19 at 13:55; Status DC Metoprolol Succinate (Toprol Xl) 100 mg HS PO Last administered on 12/31/19at 21:21; Start 12/30/19 at 21:00 Sucralfate (Carafate) 1 gm QIDACHS PO Last administered on 01/01/20at 12:24; Start 12/30/19 at 11:30 Atorvastatin Calcium (Lipitor) 80 mg QHS PO Last administered on 12/31/19at 21:20; Start 12/30/19 at 21:00 Non-Formulary Medication (Budesonide/ Formoterol Fumarate (Symbicort 160-4.5 Mcg Inhaler)) 2 puff BID IH ; Start 12/30/19 at 21:00; Status UNV Non-Formulary Medication (Cephalexin (Keflex)) 1 cap BID PO ; Start 12/30/19 at 21:00; Status UNV Insulin Glargine (Lantus Syringe) 10 unit BID SQ Last administered on 01/01/20at 09:29; Start 12/30/19 at 11:00 Lactobacillus Rhamnosus (Culturelle) 1 cap BID PO Last administered on 01/01/20at 09:25; Start 12/30/19 at 21:00 Budesonide (Pulmicort) 0.5 mg RTBID NEB Last administered on 01/01/20at 07:51; Start 12/30/19 at 11:00 Albuterol Sulfate (Ventolin Neb Soln) 2.5 mg Q6HRS NEB Last administered on 01/01/20at 12:00; Start 12/30/19 at 12:00 Lisinopril (Prinivil) 20 mg DAILY PO Last administered on 01/01/20at 09:27; Start 12/31/19 at 09:00 Insulin Human Lispro (HumaLOG) 0-5 UNITS TIDWMEALS SQ Last administered on 01/01/20at 12:34; Start 12/30/19 at 17:00 Dextrose (Dextrose 50%-Water Syringe) 12.5 gm PRN Q15MIN PRN IV SEE COMMENTS; Start 12/30/19 at 14:30 Sodium Chloride 1,000 ml @ 1,000 mls/hr Q1H PRN IV hypotension; Start 12/31/19 at 09:19; Stop 12/31/19 at 15:18; Status DC Albumin Human 200 ml @ 200 mls/hr 1X PRN PRN IV Hypotension; Start 12/31/19 at 09:30; Stop 12/31/19 at 15:29; Status DC Sodium Chloride 1,000 ml @ 400 mls/hr Q2H30M PRN IV PATENCY; Start 12/31/19 at 09:19; Stop 12/31/19 at 21:18; Status DC Info (PHARMACY MONITORING -- do not chart) 1 each PRN DAILY PRN MC SEE COMMENTS; Start 12/31/19 at 09:30; Status UNV Info (PHARMACY MONITORING -- do not chart) 1 each PRN DAILY PRN MC SEE COMMENTS; Start 12/31/19 at 09:30 Acetaminophen/ Hydrocodone Bitart (Lortab 5/325) 1 tab Q4HRS PRN PO PAIN; Start 01/01/20 at 12:30 Active Scripts Active Keflex (Cephalexin) 500 Mg Capsule 1 Cap PO BID 5 Days Reported Bidil Tablet (Isosorb Dinit/Hydralazine Hcl) 1 Each Tablet 1 Each PO SUMOWEFR Bidil Tablet (Isosorb Dinit/Hydralazine Hcl) 1 Each Tablet 1 Each PO HS Metoprolol Succinate ( Xl ) (Metoprolol Succinate) 100 Mg Tab.er.24h 1 Tab PO HS Eliquis (Apixaban) 2.5 Mg Tablet 2.5 Mg PO QMWF Eliquis (Apixaban) 2.5 Mg Tablet 2.5 Mg PO HS Aspirin 81 Mg Tab.chew 1 Tab PO HS Isosorbide Dinitrate 30 Mg Tablet 20 Mg PO TID Hydralazine Hcl 25 Mg Tablet 37.5 Mg PO TID Lisinopril 10 Mg Tablet 1 Tab PO DAILY Famotidine 20 Mg Tablet 20 Mg PO QODAY Take at bedtime every other day. Next dose: 09/22/2019 Gabapentin (Gabapentin) 300 Mg Capsule 300 Mg PO QTUTHSA Take after dialysis [place] 5-325 Tablet (Acetaminophen/Hydrocodone Bitart) 1 Each Tablet 1 Tab PO Q6HRS Novolin N Flexpen (Insulin NPH Human Isophane) 100 Unit/1 Ml Insuln.pen 10 Unit SQ BID Carafate (Sucralfate) 1 Gm Tablet 1 Tab PO QID 30 Days Children's Aspirin (Aspirin) 81 Mg Tab.chew 81 Mg PO DAILY Atorvastatin Calcium 80 Mg Tablet 1 Tab PO HS Celexa (Citalopram Hydrobromide) 20 Mg Tablet 1 Tab PO DAILY Wilda-Lalita Rx Tablet (Vit B Cmplx 3/Fa/Vit C/Biotin) 1 Each Tablet 1 Each PO DAILY Symbicort 160-4.5 Mcg Inhaler (Budesonide/Formoterol Fumarate) 10.2 Gm Hfa.aer.ad 2 Puff IH BID Vitals/I & O Vital Sign - Last 24 Hours 12/31/19 12/31/19 12/31/19 12/31/19 19:14 19:48 19:49 19:50 Temp 98.7 98.7 Pulse 79 Resp 14 B/P (MAP) 162/96 (118) Pulse Ox 100 98 98 O2 Delivery Nasal Cannula Nasal Cannula Nasal Cannula Nasal Cannula O2 Flow Rate 2.0 2.0 2.0 2.0 12/31/19 12/31/19 12/31/19 01/01/20 21:20 21:21 22:50 00:37 Temp 98.5 98.5 Pulse 79 79 73 Resp 14 B/P (MAP) 162/96 162/96 136/79 (98) Pulse Ox 99 96 O2 Delivery Nasal Cannula Nasal Cannula O2 Flow Rate 2.0 2.0 01/01/20 01/01/20 01/01/20 01/01/20 03:23 07:00 07:52 07:58 Temp 98.3 97.3 98.3 97.3 Pulse 88 78 Resp 14 18 B/P (MAP) 163/98 (119) 160/96 (117) Pulse Ox 99 100 96 O2 Delivery Nasal Cannula Nasal Cannula Nasal Cannula Nasal Cannula O2 Flow Rate 2.0 2.0 2.0 2.0 01/01/20 01/01/20 01/01/20 01/01/20 09:26 09:27 11:00 12:24 Temp 96.9 96.9 Pulse 77 78 Resp 18 B/P (MAP) 160/96 160/96 152/87 (108) Pulse Ox 98 98 O2 Delivery Nasal Cannula Nasal Cannula O2 Flow Rate 2.0 2.0 01/01/20 01/01/20 01/01/20 01/01/20 13:23 13:34 15:18 15:19 Temp 98.0 98.0 Pulse 64 Resp 18 18 B/P (MAP) 153/85 (107) 153/85 Pulse Ox 96 96 99 O2 Delivery Nasal Cannula Nasal Cannula Nasal Cannula O2 Flow Rate 2.0 2.0 2.0 Intake and Output 12/31/19 12/31/19 01/01/20 15:00 23:00 07:00 Intake Total 50 ml 650 ml 0 ml Balance 50 ml 650 ml 0 ml Nutrition Consultation Dietary Evaluation: Recommendations by RD: Dietary education by RD, Increase Calorie Intake, Protein supplementation, PPN/TPN Comments: Continue w/PPN for short-term nutrition needs while pt remains NPO REC advance diet as able pending mental status and bedside swallow eval results, goal diet renal/ADA w/nepro supplements prn/per pt preference Expected Outcomes/Goals: Diet advancement Malnutrition Findings: Food and Nutrition Intake (Sev: <50% est energy req 5days Weight Status: Appropriate Justicifation of Admission Dx: Justifications for Admission: Justification of Admission Dx: Yes (ams, renal failure) KEILY COLE MD Jan 01, 2020 16:33
[2020-01-01] MEDS: ATORVASTATIN CALCIUM 40 MG TABLET. PO SCH (22:02)
[2020-01-01] MEDS: METOPROLOL SUCC 24HR ER 100 MG TAB.ER.24H. PO SCH (22:06)
[2020-01-02 03:31] VITALS: BP 159/100
[2020-01-02 07:00] VITALS: BP 145/73
[2020-01-02] MEDS: ALBUTEROL SULFATE 2.5 MG/3 ML NEBU. NEB SCH ×4 (07:42→19:28)
[2020-01-02] MEDS: BUDESONIDE 0.5 MG/2 ML NEBU. NEB SCH ×2 (07:42→19:28)
[2020-01-02] MEDS: INSULIN LISPRO 300 UNITS/3 ML VIAL. SQ SCH ×3 (08:00→17:00)
--- NOTE | 2020-01-02 08:19 | PDOC ---
Infectious Disease Note Subjective Subjective Awakens but non verbal today 2L O2 No fevers last 48 hrs Incontinent PPN ROS ROS unable to assess as not answering questions Vital Sign Vital Signs Vital Signs Date Time Temp Pulse Resp B/P (MAP) Pulse Ox O2 Delivery O2 Flow Rate FiO2 01/02/20 07:42 95 Nasal Cannula 2.0 01/02/20 07:00 98.1 80 18 145/73 (97) 98.1 Physical Exam PHYSICAL EXAM GENERAL: Propped up in bed, alert, appears comfortable and in NAD HEENT: nml conj. No JCD LUNGS: Clear to auscultation. No accessory muscle use. HEART: S1 and S2 irregular, murmur present. ABDOMEN: Obese, soft, no guarding. EXTREMITIES: No gross edema or cyanosis. LUE-AV graft site unremarkable. SKIN: Warm to touch. No signs of rash. NEUROLOGIC: Alert, but not answering questions Labs Lab Laboratory Tests Test 01/01/20 12:06 01/01/20 17:08 01/01/20 22:01 01/02/20 07:07 Glucose (Fingerstick) 227 mg/dL (70-99) 126 mg/dL (70-99) 95 mg/dL (70-99) 100 mg/dL (70-99) Micro 12/26. URINE CULTURE Preliminary GREATER THAN 100,000 CFU/ML GRAM NEGATIVE RODS on 12/29/19 at 0945 FINAL ID= [ESCHERICHIA COLI] GREATER THAN 100,000 CFU/MLGRAM POSITIVE COCCI on 12/30/19 at 1337 FINAL ID= [STREP (BOVIS) GALLOLYTICUS] ESCHERICHIA COLI STREP (BOVIS) GALLOLYTICUS ANTIMICROBIAL SUSCEPTIBILITY Preliminary Comment NEG NEAV 56 ESCHERICHIA COLI ANTIBIOTIC RESULT INTERPRETATION AMPICILLIN/SULBACTAM 16/8 I AMIKACIN <=16 S AMPICILLIN >16 R AMOXICILLIN/K CLAVULANATE <=8/4 S AZTREONAM <=4 S CEFTRIAXONE <=1 S CEFTAZIDIME <=1 S CEFOTAXIME <=2 S CEFOXITIN <=8 S CIPROFLOXACIN <=0.25 S CEFEPIME <=2 S CEFUROXIME <=4 S CEFTAZIDIME/AVIBACTAM <=4 S ERTAPENEM <=0.5 S NITROFURANTOIN <=32 S GENTAMICIN <=2 S LEVOFLOXACIN <=0.5 S MEROPENEM <=1 S PIPERACILLIN/TAZOBACTAM <=8 S TRIMETHOPRIM/SULFAMETHOXAZOLE <=0.5/9.5 S TETRACYCLINE <=4 S TOBRAMYCIN <=2 S 12/28. URINE CULTURE Preliminary Preliminary >100,000 CFU/ML GRAM NEGATIVE RODS on 12/31/19 at 1434 FINAL ID= [ESCHERICHIA COLI] Three or more organisms isolated. Results consistent with colonization or contamination during the collection process. Microbiology 12/29/19 Urine Culture - Preliminary, Resulted Objective Assessment Encephalopathy - fluctuates. According to the records and nursing staff, patient is normally able to talk some and follow commands at baseline. She is known to have periods of confusion that are not unusual for her. Not as responsive today E. coli and Strep bovis UTI from 12/26. -Seen in ER here and given dose Rocephin and Rx Keflex, 12/26 -Repeat UC 12/28 + E. coli and 3 or more organisms isolated, consistent w/ colonization or contamination. CKD on HD via AV graft Bioprosthetic AVR Chronic CHF Chronic afib COPD Hypertension Cognitive communication deficits h/o E. coli (amp-R) in urine Plan Plan of Care Discontinue Rocephin (12/28) Encephalopathy fluctuations - defer to primary Maintain aspiration precautions Will need GI eval w/ Strep bovis - defer to primary Oral care D/w nursing and with son JOSEPH ELLIOTT MD Jan 02, 2020 08:19
[2020-01-02] MEDS: LACTOBACILLUS RHAMNOSUS GG 1 CAPSULE. PO SCH ×2 (08:40→21:05)
[2020-01-02] MEDS: SUCRALFATE 1 GM TABLET. PO SCH ×4 (08:40→21:05)
[2020-01-02] MEDS: LISINOPRIL 20 MG TABLET PO SCH (08:41)
[2020-01-02] MEDS: CITALOPRAM 20 MG TABLET. PO SCH (08:42)
[2020-01-02] MEDS: ASPIRIN CHEWABLE 81 MG TABLET. PO SCH (08:43)
[2020-01-02] MEDS: hydrALAZINE 25 MG TABLET PO SCH ×3 (08:43→21:06)
[2020-01-02] MEDS: INSULIN GLARGINE SYRINGE. SQ SCH ×2 (09:00→21:12)
--- NOTE | 2020-01-02 09:06 | PDOC ---
PROGRESS NOTES Chief Complaint Chief Complaint acute Mental status change-/ metabolic encephalopathy dementia at [facility] ESRD - UTI- E. coli UTI from 12/26 Chronic systolic and diastolic heart failure- atrial fibrillation is rate contrrolled COPD- w/ chonic hypoxia, Hypertension- antihypertensives History of Present Illness History of Present Illness eating a little better, family reports she is not back to baseline yet, was DC last time too soon and they think prompted the juan was talking to the RN at night, reportedly, does not talk to me much still, doing better cont current eating some is, Vitals Vitals Vital Signs Date Time Temp Pulse Resp B/P (MAP) Pulse Ox O2 Delivery O2 Flow Rate FiO2 01/02/20 08:43 80 145/73 01/02/20 07:42 95 Nasal Cannula 2.0 01/02/20 07:00 98.1 18 98.1 Physical Exam Physical Exam GENERAL: Propped up in bed, alert, appears comfortable and in NAD HEENT: nml conj. No JCD LUNGS: Clear to auscultation. No accessory muscle use. HEART: S1 and S2 irregular, murmur present. ABDOMEN: Obese, soft, no guarding. EXTREMITIES: No gross edema or cyanosis. LUE-AV graft site unremarkable. SKIN: Warm to touch. No signs of rash. NEUROLOGIC: Alert, but not answering questions General: Alert, No acute distress Heart: Other (Heart rate irregular, ESM aortic) Lungs: Clear, Other Abdomen: Soft Extremities: No edema Labs LABS Laboratory Tests Test 01/01/20 12:06 01/01/20 17:08 01/01/20 22:01 01/02/20 07:07 Glucose (Fingerstick) 227 mg/dL (70-99) 126 mg/dL (70-99) 95 mg/dL (70-99) 100 mg/dL (70-99) Assessment and Plan Assessmemt and Plan Problems Medical Problems: (1) Acute on chronic renal failure Status: Acute (2) AMS (altered mental status) Status: Acute Comment Review of Relevant I have reviewed the following items nano (where applicable) has been applied. Labs Laboratory Tests Test 12/31/19 13:48 12/31/19 16:37 12/31/19 20:31 01/01/20 07:21 Glucose (Fingerstick) 111 mg/dL (70-99) 130 mg/dL (70-99) 142 mg/dL (70-99) 129 mg/dL (70-99) Test 01/01/20 12:06 01/01/20 17:08 01/01/20 22:01 01/02/20 07:07 Glucose (Fingerstick) 227 mg/dL (70-99) 126 mg/dL (70-99) 95 mg/dL (70-99) 100 mg/dL (70-99) Laboratory Tests Test 01/01/20 12:06 01/01/20 17:08 01/01/20 22:01 01/02/20 07:07 Glucose (Fingerstick) 227 mg/dL (70-99) 126 mg/dL (70-99) 95 mg/dL (70-99) 100 mg/dL (70-99) Microbiology 12/29/19 Urine Culture - Preliminary, Resulted Medications Current Medications Ceftriaxone Sodium (Rocephin) 1 gm 1X ONCE IVP Last administered on 12/29/19at 13:00; Start 12/29/19 at 13:00; Stop 12/29/19 at 13:01; Status DC Sodium Chloride 1,000 ml @ 1,000 mls/hr Q1H PRN IV hypotension; Start 12/29/19 at 14:54; Stop 12/29/19 at 20:53; Status DC Albumin Human 200 ml @ 200 mls/hr 1X PRN PRN IV Hypotension; Start 12/29/19 at 15:00; Stop 12/29/19 at 20:59; Status DC Sodium Chloride 1,000 ml @ 400 mls/hr Q2H30M PRN IV PATENCY; Start 12/29/19 at 14:54; Stop 12/30/19 at 02:53; Status DC Info (PHARMACY MONITORING -- do not chart) 1 each PRN DAILY PRN MC SEE COMMENTS; Start 12/29/19 at 15:00; Status UNV Info (PHARMACY MONITORING -- do not chart) 1 each PRN DAILY PRN MC SEE COMMENTS; Start 12/29/19 at 15:00; Status Cancel Amino Acids/ Glycerin/ Electrolytes 1,000 ml @ 60 mls/hr [id number] IV Last administered on 12/31/19at 21:21; Start 12/29/19 at 20:00; Stop 01/01/20 at 12:22; Status DC Ceftriaxone Sodium (Rocephin) 1 gm Q24H IVP Last administered on 01/01/20at 12:23; Start 12/30/19 at 10:00; Stop 01/02/20 at 08:51; Status DC Aspirin (Aspirin Chewable) 81 mg DAILY PO Last administered on 01/02/20 08:43; Start 12/30/19 at 10:00 Citalopram Hydrobromide (CeleXA) 20 mg DAILY PO Last administered on 01/01/20at 09:25; Start 12/30/19 at 10:00 Famotidine (Pepcid) 20 mg QODAY PO Last administered on 01/01/20 09:25; Start 12/30/19 at 10:00 Gabapentin (Neurontin) 300 mg TuThSa PO ; Start 12/31/19 at 09:00 Hydralazine HCl (Apresoline) 37.5 mg TID PO Last administered on 01/02/20 08:43; Start 12/30/19 at 10:00 Acetaminophen/ Hydrocodone Bitart (Lortab 5/325) 1 tab Q6HRS PO Last administered on 01/01/20at 12:24; Start 12/30/19 at 11:00; Stop 01/01/20 at 12:25; Status DC Lisinopril (Prinivil) 10 mg DAILY PO Last administered on 12/30/19at 13:35; Start 12/30/19 at 11:00; Stop 12/30/19 at 13:55; Status DC Metoprolol Succinate (Toprol Xl) 100 mg HS PO Last administered on 01/01/20at 22:06; Start 12/30/19 at 21:00 Sucralfate (Carafate) 1 gm QIDACHS PO Last administered on 01/02/20at 08:40; Start 12/30/19 at 11:30 Atorvastatin Calcium (Lipitor) 80 mg QHS PO Last administered on 01/01/20at 22:02; Start 12/30/19 at 21:00 Non-Formulary Medication (Budesonide/ Formoterol Fumarate (Symbicort 160-4.5 Mcg Inhaler)) 2 puff BID IH ; Start 12/30/19 at 21:00; Status UNV Non-Formulary Medication (Cephalexin (Keflex)) 1 cap BID PO ; Start 12/30/19 at 21:00; Status UNV Insulin Glargine (Lantus Syringe) 10 unit BID SQ Last administered on 01/01/20at 09:29; Start 12/30/19 at 11:00 Lactobacillus Rhamnosus (Culturelle) 1 cap BID PO Last administered on 01/02/20at 08:40; Start 12/30/19 at 21:00 Budesonide (Pulmicort) 0.5 mg RTBID NEB Last administered on 01/02/20at 07:42; Start 12/30/19 at 11:00 Albuterol Sulfate (Ventolin Neb Soln) 2.5 mg Q6HRS NEB Last administered on 01/02/20at 07:42; Start 12/30/19 at 12:00 Lisinopril (Prinivil) 20 mg DAILY PO Last administered on 01/02/20at 08:41; Start 12/31/19 at 09:00 Insulin Human Lispro (HumaLOG) 0-5 UNITS TIDWMEALS SQ Last administered on 01/01/20at 12:34; Start 12/30/19 at 17:00 Dextrose (Dextrose 50%-Water Syringe) 12.5 gm PRN Q15MIN PRN IV SEE COMMENTS; Start 12/30/19 at 14:30 Sodium Chloride 1,000 ml @ 1,000 mls/hr Q1H PRN IV hypotension; Start 12/31/19 at 09:19; Stop 12/31/19 at 15:18; Status DC Albumin Human 200 ml @ 200 mls/hr 1X PRN PRN IV Hypotension; Start 12/31/19 at 09:30; Stop 12/31/19 at 15:29; Status DC Sodium Chloride 1,000 ml @ 400 mls/hr Q2H30M PRN IV PATENCY; Start 12/31/19 at 09:19; Stop 12/31/19 at 21:18; Status DC Info (PHARMACY MONITORING -- do not chart) 1 each PRN DAILY PRN MC SEE COMMENTS; Start 12/31/19 at 09:30; Status UNV Info (PHARMACY MONITORING -- do not chart) 1 each PRN DAILY PRN MC SEE COMMENTS; Start 12/31/19 at 09:30 Acetaminophen/ Hydrocodone Bitart (Lortab 5/325) 1 tab Q4HRS PRN PO PAIN; Start 01/01/20 at 12:30 Active Scripts Active Keflex (Cephalexin) 500 Mg Capsule 1 Cap PO BID 5 Days Reported Bidil Tablet (Isosorb Dinit/Hydralazine Hcl) 1 Each Tablet 1 Each PO SUMOWEFR Bidil Tablet (Isosorb Dinit/Hydralazine Hcl) 1 Each Tablet 1 Each PO HS Metoprolol Succinate ( Xl ) (Metoprolol Succinate) 100 Mg Tab.er.24h 1 Tab PO HS Eliquis (Apixaban) 2.5 Mg Tablet 2.5 Mg PO QMWF Eliquis (Apixaban) 2.5 Mg Tablet 2.5 Mg PO HS Aspirin 81 Mg Tab.chew 1 Tab PO HS Isosorbide Dinitrate 30 Mg Tablet 20 Mg PO TID Hydralazine Hcl 25 Mg Tablet 37.5 Mg PO TID Lisinopril 10 Mg Tablet 1 Tab PO DAILY Famotidine 20 Mg Tablet 20 Mg PO QODAY Take at bedtime every other day. Next dose: 09/22/2019 Gabapentin (Gabapentin) 300 Mg Capsule 300 Mg PO QTUTHSA Take after dialysis [place] 5-325 Tablet (Acetaminophen/Hydrocodone Bitart) 1 Each Tablet 1 Tab PO Q6HRS Novolin N Flexpen (Insulin NPH Human Isophane) 100 Unit/1 Ml Insuln.pen 10 Unit SQ BID Carafate (Sucralfate) 1 Gm Tablet 1 Tab PO QID 30 Days Children's Aspirin (Aspirin) 81 Mg Tab.chew 81 Mg PO DAILY Atorvastatin Calcium 80 Mg Tablet 1 Tab PO HS Celexa (Citalopram Hydrobromide) 20 Mg Tablet 1 Tab PO DAILY Wilda-Lalita Rx Tablet (Vit B Cmplx 3/Fa/Vit C/Biotin) 1 Each Tablet 1 Each PO DAILY Symbicort 160-4.5 Mcg Inhaler (Budesonide/Formoterol Fumarate) 10.2 Gm Hfa.aer.ad 2 Puff IH BID Vitals/I & O Vital Sign - Last 24 Hours 01/01/20 01/01/20 01/01/20 01/01/20 09:26 09:27 11:00 12:24 Temp 96.9 96.9 Pulse 77 78 Resp 18 B/P (MAP) 160/96 160/96 152/87 (108) Pulse Ox 98 98 O2 Delivery Nasal Cannula Nasal Cannula O2 Flow Rate 2.0 2.0 01/01/20 01/01/20 01/01/20 01/01/20 13:23 13:34 15:18 15:19 Temp 98.0 98.0 Pulse 64 Resp 18 18 B/P (MAP) 153/85 (107) 153/85 Pulse Ox 96 96 99 O2 Delivery Nasal Cannula Nasal Cannula Nasal Cannula O2 Flow Rate 2.0 2.0 2.0 01/01/20 01/01/20 01/01/20 01/01/20 19:25 19:45 21:00 22:04 Temp 97.6 97.6 Pulse 70 70 Resp 18 B/P (MAP) 153/84 (107) 153/84 Pulse Ox 99 97 O2 Delivery Nasal Cannula Nasal Cannula Nasal Cannula O2 Flow Rate 2.0 2.0 2.0 01/01/20 01/01/20 01/01/20 01/02/20 22:06 22:43 23:36 00:52 Temp 98.7 97.6 98.7 97.6 Pulse 70 79 79 Resp 18 18 B/P (MAP) 153/84 145/82 (103) 158/88 (111) Pulse Ox 99 99 99 O2 Delivery Room Air Nasal Cannula Nasal Cannula O2 Flow Rate 2.0 2.0 01/02/20 01/02/20 01/02/20 01/02/20 03:31 07:00 07:42 08:41 Temp 98.3 98.1 98.3 98.1 Pulse 80 80 80 Resp 18 18 B/P (MAP) 159/100 (119) 145/73 (97) 145/73 Pulse Ox 100 100 95 O2 Delivery Nasal Cannula Room Air Nasal Cannula O2 Flow Rate 2.0 2.0 01/02/20 08:43 Pulse 80 B/P (MAP) 145/73 Intake and Output 01/01/20 01/01/20 01/02/20 15:00 23:00 07:00 Intake Total 360 ml 380 ml 60 ml Output Total 150 ml Balance 360 ml 230 ml 60 ml Nutrition Consultation Dietary Evaluation: Recommendations by RD: Dietary education by RD, Increase Calorie Intake, Protein supplementation, PPN/TPN Comments: Continue w/PPN for short-term nutrition needs while pt remains NPO REC advance diet as able pending mental status and bedside swallow eval results, goal diet renal/ADA w/nepro supplements prn/per pt preference Expected Outcomes/Goals: Diet advancement Malnutrition Findings: Food and Nutrition Intake (Sev: <50% est energy req 5days Weight Status: Appropriate Justicifation of Admission Dx: Justifications for Admission: Justification of Admission Dx: Yes (ams, renal failure) KEILY COLE MD Jan 02, 2020 09:06
[2020-01-02 11:09] VITALS: BP 154/80
--- NOTE | 2020-01-02 13:31 | PDOC ---
SUBJECTIVE ROS Stable, opens eyes, Non verbal OBJECTIVE Vital Signs Vital Signs Date Time Temp Pulse Resp B/P (MAP) Pulse Ox O2 Delivery O2 Flow Rate FiO2 01/02/20 11:09 98.1 75 18 154/80 (104) 100 Room Air 98.1 01/02/20 07:42 2.0 I & 0 Intake and Output 01/02/20 07:00 Intake Total 800 ml Output Total 150 ml Balance 650 ml Intake Oral 800 ml Output Urine Total 150 ml # Voids 1 PHYSICAL EXAM Physical Exam GENERAL: NAD HEENT: OM moist NECK: Supple, no JVD. LUNGS: Clear bilaterally. Diminished breath sounds at the bases. HEART: S1, S2 Systolic murmur at left sternal border. ABDOMEN: Soft, EXTREMITIES: No LE edema NEUROLOGIC: AMS No Yin DIAGNOSIS/ASSESSMENT Assessment & Plan ESRD - On HD TTS No indication for HD today UTI- E. coli UTI from 12/26 per ID Mental status change-/encephalopathy Per family not at baseline Chronic systolic and diastolic heart failure- currently compensated clinically Anemia, chronic- stable Bioprosthetic AVR Chronic afib COPD- On O2 Hypertension- antihypertensives Cognitive communication deficits h COMMENT/RELEVANT DATA Meds Current Medications Medications (Trade) Dose Ordered Sig/Cristine Start Time Stop Time Status Last Admin Dose Admin Acetaminophen/ Hydrocodone Bitart (Lortab 5/325) 1 tab Q4HRS PRN 01/01/20 12:30 Albumin Human 200 ml @ 200 mls/hr 1X PRN PRN 12/31/19 09:30 12/31/19 15:29 DC Albuterol Sulfate (Ventolin Neb Soln) 2.5 mg Q6HRS 12/30/19 12:00 01/02/20 07:42 2.5 MG Amino Acids/ Glycerin/ Electrolytes 1,000 ml @ 60 mls/hr [id number] 12/29/19 20:00 01/01/20 12:22 DC 12/31/19 21:21 60 MLS/HR Aspirin (Aspirin Chewable) 81 mg DAILY 12/30/19 10:00 01/02/20 08:43 81 MG Atorvastatin Calcium (Lipitor) 80 mg QHS 12/30/19 21:00 01/01/20 22:02 80 MG Budesonide (Pulmicort) 0.5 mg RTBID 12/30/19 11:00 01/02/20 07:42 0.5 MG Ceftriaxone Sodium (Rocephin) 1 gm Q24H 12/30/19 10:00 01/02/20 08:51 DC 01/01/20 12:23 1 GM Citalopram Hydrobromide (CeleXA) 20 mg DAILY 12/30/19 10:00 01/01/20 09:25 20 MG Dextrose (Dextrose 50%-Water Syringe) 12.5 gm PRN Q15MIN PRN 12/30/19 14:30 Famotidine (Pepcid) 20 mg QODAY 12/30/19 10:00 01/01/20 09:25 20 MG Gabapentin (Neurontin) 300 mg TuThSa 12/31/19 09:00 Hydralazine HCl (Apresoline) 37.5 mg TID 12/30/19 10:00 01/02/20 08:43 37.5 MG Info (PHARMACY MONITORING -- do not chart) 1 each PRN DAILY PRN 12/31/19 09:30 Insulin Glargine (Lantus Syringe) 10 unit BID 12/30/19 11:00 01/01/20 09:29 10 UNIT Insulin Human Lispro (HumaLOG) 0-5 UNITS TIDWMEALS 12/30/19 17:00 01/01/20 12:34 3 UNITS Lactobacillus Rhamnosus (Culturelle) 1 cap BID 12/30/19 21:00 01/02/20 08:40 1 CAP Lisinopril (Prinivil) 20 mg DAILY 12/31/19 09:00 01/02/20 08:41 20 MG Metoprolol Succinate (Toprol Xl) 100 mg HS 12/30/19 21:00 01/01/20 22:06 100 MG Non-Formulary Medication (Budesonide/ Formoterol Fumarate (Symbicort 160-4.5 Mcg Inhaler)) 2 puff BID 12/30/19 21:00 UNV Non-Formulary Medication (Cephalexin (Keflex)) 1 cap BID 12/30/19 21:00 UNV Sodium Chloride 1,000 ml @ 400 mls/hr Q2H30M PRN 12/31/19 09:19 12/31/19 21:18 DC Sucralfate (Carafate) 1 gm QIDACHS 12/30/19 11:30 01/02/20 08:40 1 GM Lab Laboratory Tests Test 01/01/20 17:08 01/01/20 22:01 01/02/20 07:07 01/02/20 11:28 Glucose (Fingerstick) 126 mg/dL (70-99) 95 mg/dL (70-99) 100 mg/dL (70-99) 128 mg/dL (70-99) Results All relevant outside records, renal labs, imaging studies, telemetry/EKG's were reviewed. Justicifation of Admission Dx: Justifications for Admission: Justification of Admission Dx: Yes (ams, renal failure) RAS LONG MD Jan 02, 2020 13:31
[2020-01-02 14:58] VITALS: BP 176/92
--- NOTE | 2020-01-02 15:47 | EKG ---
[facility] [address] [place] [address] Test Date: 2019-12-29 Test Time: 11:46:36 Pat Name: MARK HERNÁNDEZ Department: Room: Gender: F [employer]: : [id number] Requested By: JENNIFFER LÓPEZ Order Number: [id number] Reading MD: Measurements Intervals [place] Rate: 100 P: MS: QRS: -65 QRSD: 144 T: 112 QT: 394 QTc: 512 Interpretive Statements IRREGULAR RHYTHM, NO P-WAVE FOUND ABNORMAL LEFT AXIS DEVIATION LEFT ANTERIOR FASCICULAR BLOCK NON SPECIFIC INTRAVENTRICULAR BLOCK QRS(T) CONTOUR ABNORMALITY CONSISTENT WITH ANTEROSEPTAL INFARCT PROBABLY OLD CONSIDER INFERIOR INFARCT ABNORMAL ECG RI6.02 No previous ECG available for comparison
--- NOTE | 2020-01-02 16:32 | PDOC ---
CORNELIUS CINTRON SCAN COORDINATOR 01/02/20 1632: CARDIO Progress Notes Date and Time Date of Service 01/02/20 Time of Evaluation 1210 Subjective Subjective: Other (non-verbal ) Vitals Vitals Vital Signs Date Time Temp Pulse Resp B/P (MAP) Pulse Ox O2 Delivery O2 Flow Rate FiO2 01/02/20 14:58 98.0 71 18 176/92 (120) 99 Nasal Cannula 2.0 98.0 Weight Weight [ ] Input and Output Intake and Output Intake and Output 01/02/20 07:00 Intake Total 800 ml Output Total 150 ml Balance 650 ml Intake Oral 800 ml Output Urine Total 150 ml # Voids 1 Laboratory Labs Laboratory Tests Test 01/01/20 17:08 01/01/20 22:01 01/02/20 07:07 01/02/20 11:28 Glucose (Fingerstick) 126 mg/dL (70-99) 95 mg/dL (70-99) 100 mg/dL (70-99) 128 mg/dL (70-99) Test 01/02/20 16:10 Glucose (Fingerstick) 111 mg/dL (70-99) Microbiology Micro Microbiology 12/29/19 Urine Culture - Final, Complete 12/29/19 Antimicrobic Susceptibility - Final, Complete Physical Exam HEENT: Neck Supple W Full Motion Chest: Symmetric LUNGS: Other (diminished bases ) Heart: other (heart tones irregular, not on tele) Neurology: alert, other (non-verbal ) Assessment Assessment 1. Permanent AFIB, rate controlled per VS review. Not on tele. Eliquis held due to encephalopathy, fall risk 2. Metabolic encephalopathy secondary to UTI. 3. Chronic systolic heart failure, clinically well compensated. LVEF 40 to 45%. 4. CAD: 01/21/2019 [facility] mild to moderate LAD/LCx disease, occluded RCA with patent SVG graft. Clinically stable 5. Bioprosthetic AVR: Clinically stable 6. HTN; labile 7. ESRD on HD 8. COPD, stable 9. DM2/HLP: statin Recommendations Continue metoprolol for rate control ASA for stroke prophylaxis. Increase lisinopril for better BP control Fluid offloading via HD. Antibiotics as per ID Supportive care Justicifation of Admission Dx: Justifications for Admission: Justification of Admission Dx: Yes (ams, renal failure) MURPHY MICHAEL MD 01/03/20 1516: CARDIO Progress Notes Plan Plan Late entry for 01/02/2020 Patient seen and examined. Agree with above nurse practitioner note. Supportive care. CORNELIUS CINTRON APRN Jan 02, 2020 16:32 MURPHY MICHAEL MD Jan 03, 2020 15:16
[2020-01-02 19:09] VITALS: BP 143/76
[2020-01-02] MEDS: ATORVASTATIN CALCIUM 40 MG TABLET. PO SCH (21:05)
[2020-01-02] MEDS: METOPROLOL SUCC 24HR ER 100 MG TAB.ER.24H. PO SCH (21:05)
[2020-01-02 23:00] VITALS: BP 149/77
[2020-01-03 02:50] VITALS: BP 163/87
[2020-01-03 06:27] LABS: CALCIUM 8.4 mg/dL (8.5-10.1); CREATININE 3.3 mg/dL (0.6-1.0); GFR 16.6; POTASSIUM 4.3 mmol/L (3.5-5.1)
[2020-01-03 07:00] VITALS: BP 158/94
[2020-01-03] MEDS: SUCRALFATE 1 GM TABLET. PO SCH ×2 (07:30→14:24)
[2020-01-03] MEDS: BUDESONIDE 0.5 MG/2 ML NEBU. NEB SCH (07:59)
[2020-01-03] MEDS: ALBUTEROL SULFATE 2.5 MG/3 ML NEBU. NEB SCH ×3 (07:59→15:00)
[2020-01-03] MEDS: INSULIN LISPRO 300 UNITS/3 ML VIAL. SQ SCH ×2 (08:00→12:00)
--- NOTE | 2020-01-03 08:15 | PDOC ---
Infectious Disease Note Subjective Subjective States she is ok and feeling better No fevers last 48 hrs Vital Sign Vital Signs Vital Signs Date Time Temp Pulse Resp B/P (MAP) Pulse Ox O2 Delivery O2 Flow Rate FiO2 01/03/20 08:01 99 Nasal Cannula 2.0 01/03/20 07:00 97.6 68 18 158/94 (115) 97.6 Physical Exam PHYSICAL EXAM GENERAL: Propped up in bed, alert, appears comfortable and in NAD - eating HEENT: nml conj. No JCD LUNGS: Clear to auscultation. No accessory muscle use. HEART: S1 and S2 irregular, murmur present. ABDOMEN: Obese, soft, no guarding. EXTREMITIES: No gross edema or cyanosis. LUE-AV graft site unremarkable. SKIN: Warm to touch. No signs of rash. NEUROLOGIC: Alert and responding - smiled today Labs Lab Laboratory Tests Test 01/02/20 11:28 01/02/20 16:10 01/02/20 20:57 01/03/20 04:25 Glucose (Fingerstick) 128 mg/dL (70-99) 111 mg/dL (70-99) 156 mg/dL (70-99) Sodium Level 133 mmol/L (136-145) Potassium Level 4.3 mmol/L (3.5-5.1) Chloride Level 96 mmol/L (98-107) Carbon Dioxide Level 26 mmol/L (21-32) Anion Gap 11 (6-14) Blood Urea Nitrogen 48 mg/dL (7-20) Creatinine 3.3 mg/dL (0.6-1.0) Estimated GFR (Cockcroft-Gault) 16.6 Glucose Level 117 mg/dL (70-99) Calcium Level 8.4 mg/dL (8.5-10.1) Test 01/03/20 06:50 Glucose (Fingerstick) 105 mg/dL (70-99) Micro 12/26. URINE CULTURE Preliminary GREATER THAN 100,000 CFU/ML GRAM NEGATIVE RODS on 12/29/19 at 0945 FINAL ID= [ESCHERICHIA COLI] GREATER THAN 100,000 CFU/MLGRAM POSITIVE COCCI on 12/30/19 at 1337 FINAL ID= [STREP (BOVIS) GALLOLYTICUS] ESCHERICHIA COLI STREP (BOVIS) GALLOLYTICUS ANTIMICROBIAL SUSCEPTIBILITY Preliminary Comment NEG NEVA 56 ESCHERICHIA COLI ANTIBIOTIC RESULT INTERPRETATION AMPICILLIN/SULBACTAM 16/8 I AMIKACIN <=16 S AMPICILLIN >16 R AMOXICILLIN/K CLAVULANATE <=8/4 S AZTREONAM <=4 S CEFTRIAXONE <=1 S CEFTAZIDIME <=1 S CEFOTAXIME <=2 S CEFOXITIN <=8 S CIPROFLOXACIN <=0.25 S CEFEPIME <=2 S CEFUROXIME <=4 S CEFTAZIDIME/AVIBACTAM <=4 S ERTAPENEM <=0.5 S NITROFURANTOIN <=32 S GENTAMICIN <=2 S LEVOFLOXACIN <=0.5 S MEROPENEM <=1 S PIPERACILLIN/TAZOBACTAM <=8 S TRIMETHOPRIM/SULFAMETHOXAZOLE <=0.5/9.5 S TETRACYCLINE <=4 S TOBRAMYCIN <=2 S 12/28. URINE CULTURE Preliminary Preliminary >100,000 CFU/ML GRAM NEGATIVE RODS on 12/31/19 at 1434 FINAL ID= [ESCHERICHIA COLI] Three or more organisms isolated. Results consistent with colonization or contamination during the collection process. Microbiology 12/29/19 Urine Culture - Preliminary, Resulted Objective Assessment Encephalopathy - better. fluctuates. According to the records and nursing staff, patient is normally able to talk some and follow commands at baseline. She is known to have periods of confusion that are not unusual for her. Not as responsive today E. coli and Strep bovis UTI from 12/26. -Seen in ER here and given dose Rocephin and Rx Keflex, 12/26 -Repeat UC 12/28 + E. coli and 3 or more organisms isolated, consistent w/ colonization or contamination. CKD on HD via AV graft Bioprosthetic AVR Chronic CHF Chronic afib COPD Hypertension Cognitive communication deficits h/o E. coli (amp-R) in urine Plan Plan of Care off abx Encephalopathy fluctuations - better today - defer to primary Maintain aspiration precautions Will need GI eval w/ Strep bovis - defer to primary - d/w nursing Oral care ID to sign off D/w nursing JOSEPH ELLIOTT MD Jan 03, 2020 08:15
[2020-01-03] MEDS: INSULIN GLARGINE SYRINGE. SQ SCH (08:19)
[2020-01-03] MEDS ORDERED: LISINOPRIL 20 MG TABLET PO SCH (09:00)
[2020-01-03] MEDS: hydrALAZINE 25 MG TABLET PO SCH ×2 (09:00→14:22)
[2020-01-03] MEDS ORDERED: IV NORMAL SALINE 1000ML BAG 1,000 ML IV PRN ×2 (09:03)
[2020-01-03] MEDS ORDERED: DIALYSIS PATIENT. MC PRN (09:15)
[2020-01-03] MEDS ORDERED: ALBUMIN HUMAN 25% 200 ML IV PRN (09:15)
[2020-01-03] MEDS ORDERED: diphenhydrAMINE 50 MG/ML VIAL IV PRN ×2 (09:15)
--- NOTE | 2020-01-03 10:49 | PDOC ---
SUBJECTIVE ROS Stable OBJECTIVE Vital Signs Vital Signs Date Time Temp Pulse Resp B/P (MAP) Pulse Ox O2 Delivery O2 Flow Rate FiO2 01/03/20 08:01 99 Nasal Cannula 2.0 01/03/20 07:00 97.6 68 18 158/94 (115) 97.6 I & 0 Intake and Output0 01/03/20 07:00 Intake Total 460 ml Balance 460 ml Intake Oral 460 ml # Voids 4 PHYSICAL EXAM Physical Exam GENERAL: NAD HEENT: OM moist NECK: Supple, no JVD. LUNGS: Clear bilaterally. Diminished breath sounds at the bases. HEART: S1, S2 Systolic murmur at left sternal border. ABDOMEN: Soft, EXTREMITIES: No LE edema NEUROLOGIC: AMS No Yin DIAGNOSIS/ASSESSMENT Assessment & Plan ESRD - On HD TTS seen on HD, tolerating well, continue as ordered, Hussain Christopher UTI- E. coli UTI from 12/26 off abx Mental status change-/encephalopathy- better Chronic systolic and diastolic heart failure- currently compensated clinically Anemia, chronic- stable Bioprosthetic AVR Chronic afib COPD- On O2 Hypertension- antihypertensives Cognitive communication deficits h COMMENT/RELEVANT DATA Meds Current Medications Medications (Trade) Dose Ordered Sig/Cristine Start Time Stop Time Status Last Admin Dose Admin Acetaminophen/ Hydrocodone Bitart (Lortab 5/325) 1 tab Q4HRS PRN 01/01/20 12:30 Albumin Human 200 ml @ 200 mls/hr 1X PRN PRN 01/03/20 09:15 01/03/20 15:14 Albuterol Sulfate (Ventolin Neb Soln) 2.5 mg Q6HRS 12/30/19 12:00 01/03/20 07:59 2.5 MG Amino Acids/ Glycerin/ Electrolytes 1,000 ml @ 60 mls/hr [id number] 12/29/19 20:00 01/01/20 12:22 DC 12/31/19 21:21 60 MLS/HR Aspirin (Aspirin Chewable) 81 mg DAILY 12/30/19 10:00 01/02/20 08:43 81 MG Atorvastatin Calcium (Lipitor) 80 mg QHS 12/30/19 21:00 01/02/20 21:05 80 MG Budesonide (Pulmicort) 0.5 mg RTBID 12/30/19 11:00 01/03/20 07:59 0.5 MG Ceftriaxone Sodium (Rocephin) 1 gm Q24H 12/30/19 10:00 01/02/20 08:51 DC 01/01/20 12:23 1 GM Citalopram Hydrobromide (CeleXA) 20 mg DAILY 12/30/19 10:00 01/01/20 09:25 20 MG Dextrose (Dextrose 50%-Water Syringe) 12.5 gm PRN Q15MIN PRN 12/30/19 14:30 Diphenhydramine HCl (Benadryl) 25 mg 1X PRN PRN 01/03/20 09:15 01/04/20 09:14 Famotidine (Pepcid) 20 mg QODAY 12/30/19 10:00 01/01/20 09:25 20 MG Gabapentin (Neurontin) 300 mg TuThSa 12/31/19 09:00 Hydralazine HCl (Apresoline) 37.5 mg TID 12/30/19 10:00 01/02/20 21:06 37.5 MG Info (PHARMACY MONITORING -- do not chart) 1 each PRN DAILY PRN 01/03/20 09:15 Insulin Glargine (Lantus Syringe) 10 unit BID 12/30/19 11:00 01/03/20 08:19 10 UNIT Insulin Human Lispro (HumaLOG) 0-5 UNITS TIDWMEALS 12/30/19 17:00 01/01/20 12:34 3 UNITS Lactobacillus Rhamnosus (Culturelle) 1 cap BID 12/30/19 21:00 01/02/20 21:05 1 CAP Lisinopril (Prinivil) 40 mg DAILY 01/03/20 09:00 Metoprolol Succinate (Toprol Xl) 100 mg HS 12/30/19 21:00 01/02/20 21:05 100 MG Non-Formulary Medication (Budesonide/ Formoterol Fumarate (Symbicort 160-4.5 Mcg Inhaler)) 2 puff BID 12/30/19 21:00 UNV Non-Formulary Medication (Cephalexin (Keflex)) 1 cap BID 12/30/19 21:00 UNV Sodium Chloride 1,000 ml @ 400 mls/hr Q2H30M PRN 01/03/20 09:03 01/03/20 21:02 Sucralfate (Carafate) 1 gm QIDACHS 12/30/19 11:30 01/03/20 07:30 1 GM Lab Laboratory Tests Test 01/02/20 11:28 01/02/20 16:10 01/02/20 20:57 01/03/20 04:25 Glucose (Fingerstick) 128 mg/dL (70-99) 111 mg/dL (70-99) 156 mg/dL (70-99) Sodium Level 133 mmol/L (136-145) Potassium Level 4.3 mmol/L (3.5-5.1) Chloride Level 96 mmol/L (98-107) Carbon Dioxide Level 26 mmol/L (21-32) Anion Gap 11 (6-14) Blood Urea Nitrogen 48 mg/dL (-20) Creatinine 3.3 mg/dL (0.6-1.0) Estimated GFR (Cockcroft-Gault) 16.6 Glucose Level 117 mg/dL (70-99) Calcium Level 8.4 mg/dL (8.5-10.1) Test 01/03/20 06:50 Glucose (Fingerstick) 105 mg/dL (70-99) Results All relevant outside records, renal labs, imaging studies, telemetry/EKG's were reviewed. Justicifation of Admission Dx: Justifications for Admission: Justification of Admission Dx: Yes (ams, renal failure) RAS LONG MD Jan 03, 2020 10:49
[2020-01-03] MEDS ORDERED: TRAM-48 PO (11:30)
--- NOTE | 2020-01-03 11:32 | SNU/HH DC ---
DISCHARGE ORDERS DISCHARGE INFORMATION: DISCHARGE DATE: Jan 03, 2020 FINAL DIAGNOSIS acute on chronic encephalopthy Dm2 htn ESRD Problems Medical Problems: (1) Acute on chronic renal failure Status: Acute (2) AMS (altered mental status) Status: Acute CONDITION ON DISCHARGE: Stable CODE STATUS: Code Status: Full SNF: SNF STAY <30 DAYS: Yes POST DISCHARGE ORDERS: ACTIVITY ORDERS: Activity as tolerated DIET AFTER DISCHARGE: Renal CHECKS AFTER DISCHARGE: CHECKS AFTER DISCHARGE: Check blood press - daily FOLLOW-UP: Additional Instructions: mental status may improve off gabapentin, and with less pain meds TREATMENT/EQUIPMENT ORDERS: ADAPTIVE EQUIPMENT NEEDED: None Physical Therapy For: Evalulation/Treatment Occupational Therapy For: Evaluation/Treatment Speech Language Pathology For: Evaluation/Treatment DISCHARGE MEDICATIONS: Home Meds Active Scripts Tramadol Hcl (ULTRAM) 50 Mg Tablet, 1 TAB PO PRN TID PRN for pain MDD 3 Tablet(s) for 30 Days, #30 TAB 0 Refills Prov:KEILY COLE MD 01/03/20 Cephalexin (KEFLEX) 500 Mg Capsule, 1 CAP PO BID for 5 Days, #10 CAP 0 Refills Prov:BALDO KLEIN 12/27/19 Reported Medications Isosorb Dinit/Hydralazine Hcl (BIDIL TABLET) 1 Each Tablet, 1 EACH PO SuMoWeFr f or cardiac, TAB 12/29/19 Isosorb Dinit/Hydralazine Hcl (BIDIL TABLET) 1 Each Tablet, 1 EACH PO HS for cardiac, TAB 12/29/19 Metoprolol Succinate (METOPROLOL SUCCINATE ( XL )) 100 Mg Tab.er.24h, 1 TAB PO HS for cardiac, #30 TAB 5 Refills 12/29/19 Apixaban (ELIQUIS) 2.5 Mg Tablet, 2.5 MG PO QMWF for a-fib, TAB 12/29/19 Apixaban (ELIQUIS) 2.5 Mg Tablet, 2.5 MG PO HS for a-fib, TAB 12/29/19 Isosorbide Dinitrate (ISOSORBIDE DINITRATE) 30 Mg Tablet, 20 MG PO TID for Angina, TAB 09/21/19 Hydralazine Hcl (HYDRALAZINE HCL) 25 Mg Tablet, 37.5 MG PO TID for Hypertension, TAB 09/21/19 Lisinopril (LISINOPRIL) 10 Mg Tablet, 1 TAB PO DAILY for Hypertension, #30 TAB 5 Refills 09/21/19 Famotidine (FAMOTIDINE) 20 Mg Tablet, 20 MG PO QODAY for GI Ulcers, TAB Take at bedtime every other day. Next dose: 09/22/2019 09/21/19 Insulin NPH Human Isophane (Novolin N Flexpen) 100 Unit/1 Ml Insuln.pen, 10 UNIT SQ BID for DM, EACH 09/13/19 Sucralfate (CARAFATE) 1 Gm Tablet, 1 TAB PO QID for ulcers for 30 Days, #120 TAB 0 Refills 09/13/19 Aspirin (Children's Aspirin) 81 Mg Tab.chew, 81 MG PO DAILY for heart health, TAB.CHEW 09/13/19 Atorvastatin Calcium (ATORVASTATIN CALCIUM) 80 Mg Tablet, 1 TAB PO HS for DYSLIPIDEMIA, #30 TAB 5 Refills 01/10/19 Citalopram Hydrobromide (CELEXA) 20 Mg Tablet, 1 TAB PO DAILY for DEPRESSION, #90 TAB 3 Refills 01/10/19 Vit B Cmplx 3/Fa/Vit C/Biotin (LEBRON-BRINA RX TABLET) 1 Each Tablet, 1 EACH PO DAILY for VITAMIN RENAL, TAB 01/10/19 Budesonide/Formoterol Fumarate (SYMBICORT 160-4.5 MCG INHALER) 10.2 Gm Hfa.aer.ad, 2 PUFF IH BID for SOB, #10.6 GM 3 Refills 01/10/19 Discontinued Reported Medications Aspirin (ASPIRIN) 81 Mg Tab.chew, 1 TAB PO HS for afib, #30 TAB 3 Refills 12/29/19 Gabapentin (GABAPENTIN ) 300 Mg Capsule, 300 MG PO QTUTHSA for NEUROGENIC PAIN, CAP Take after dialysis 09/21/19 Hydrocodone/Apap 5-325 (NORCO 5-325 TABLET) 1 Each Tablet, 1 TAB PO Q6HRS for Pain, #90 TAB 09/13/19 KEILY COLE MD Jan 03, 2020 11:32
--- NOTE | 2020-01-03 11:35 | PDOC3 ---
Discharge Summary Visit Information Date of Admission: Dec 29, 2019 Date of Discharge: Jan 03, 2020 Final Diagnosis acute Mental status change-/ metabolic encephalopathy dementia at [facility] ESRD - UTI- E. coli UTI from 12/26 Chronic systolic and diastolic heart failure- atrial fibrillation is rate contrrolled COPD- w/ chonic hypoxia, Hypertension- Problems Medical Problems: (1) Acute on chronic renal failure Status: Acute (2) AMS (altered mental status) Status: Acute Brief Hospital Course Allergies Allergies Coded Allergies Type Severity Reaction Last Updated Verified warfarin Allergy Intermediate 01/13/19 Yes Vital Signs Vital Signs Date Time Temp Pulse Resp B/P (MAP) Pulse Ox O2 Delivery O2 Flow Rate FiO2 01/03/20 08:01 99 Nasal Cannula 2.0 01/03/20 07:00 97.6 68 18 158/94 (115) 97.6 Lab Results Laboratory Tests Test 01/01/20 12:06 01/01/20 17:08 01/01/20 22:01 01/02/20 07:07 Glucose (Fingerstick) 227 mg/dL (70-99) 126 mg/dL (70-99) 95 mg/dL (70-99) 100 mg/dL (70-99) Test 01/02/20 11:28 01/02/20 16:10 01/02/20 20:57 01/03/20 04:25 Glucose (Fingerstick) 128 mg/dL (70-99) 111 mg/dL (70-99) 156 mg/dL (70-99) Sodium Level 133 mmol/L (136-145) Potassium Level 4.3 mmol/L (3.5-5.1) Chloride Level 96 mmol/L (98-107) Carbon Dioxide Level 26 mmol/L (21-32) Anion Gap 11 (6-14) Blood Urea Nitrogen 48 mg/dL (7-20) Creatinine 3.3 mg/dL (0.6-1.0) Estimated GFR (Cockcroft-Gault) 16.6 Glucose Level 117 mg/dL (70-99) Calcium Level 8.4 mg/dL (8.5-10.1) Test 01/03/20 06:50 Glucose (Fingerstick) 105 mg/dL (70-99) Laboratory Tests Test 01/02/20 16:10 01/02/20 20:57 01/03/20 04:25 01/03/20 06:50 Glucose (Fingerstick) 111 mg/dL (70-99) 156 mg/dL (70-99) 105 mg/dL (70-99) Sodium Level 133 mmol/L (136-145) Potassium Level 4.3 mmol/L (3.5-5.1) Chloride Level 96 mmol/L (98-107) Carbon Dioxide Level 26 mmol/L (21-32) Anion Gap 11 (6-14) Blood Urea Nitrogen 48 mg/dL (7-20) Creatinine 3.3 mg/dL (0.6-1.0) Estimated GFR (Cockcroft-Gault) 16.6 Glucose Level 117 mg/dL (70-99) Calcium Level 8.4 mg/dL (8.5-10.1) Brief Hospital Course Ms. Estrada is a 74 old readmit with weakness and confusion, strep BOVIS uti, GI consult ID and renal followed better at DC Discharge Information Condition at Discharge: Improved Follow Up: Weeks Disposition/Orders: D/C to Another Facility Scheduled Apixaban (Eliquis) 2.5 Mg Tablet, 2.5 MG PO HS for a-fib, (Reported) Entered as Reported by: SABNIA DIAZ on 12/29/191642 Last Action: HELD on 12/30/19945 by KEILY COLE Apixaban (Eliquis) 2.5 Mg Tablet, 2.5 MG PO QMWF for a-fib, (Reported) Entered as Reported by: SABINA DIAZ on 12/29/191642 Last Action: HELD on 12/30/19945 by KEILY COLE Aspirin (Children's Aspirin) 81 Mg Tab.chew, 81 MG PO DAILY for heart health, (Reported) Entered as Reported by: ANTONIO DUKES, RN on 09/13/191801 Last Action: Continued on 12/30/19944 by KEILY COLE Atorvastatin Calcium (Atorvastatin Calcium) 80 Mg Tablet, 1 TAB PO HS for DYSLIPIDEMIA, #30 Ref 5 (Reported) Entered as Reported by: SURAJ MATA on 01/10/192038 Last Action: Converted on 12/30/19944 by KEILY COLE Budesonide/Formoterol Fumarate (Symbicort 160-4.5 Mcg Inhaler) 10.2 Gm Hfa.aer.ad, 2 PUFF IH BID for SOB, #10.6 Ref 3 (Reported) Entered as Reported by: SURAJ MATA on 01/10/192038 Last Action: Converted on 12/30/19944 by KEILY COLE Cephalexin (Keflex) 500 Mg Capsule, 1 CAP PO BID for 5 Days, #10 Ref 0 Prescribed by: PRADEEP OLIVIA on 12/27/192017 Last Action: Converted on 12/30/19945 by KEILY COLE Citalopram Hydrobromide (Celexa) 20 Mg Tablet, 1 TAB PO DAILY for DEPRESSION, #90 Ref 3 (Reported) Entered as Reported by: SURAJ MATA on 01/10/192038 Last Action: Continued on 12/30/19944 by KEILY COLE Famotidine (Famotidine) 20 Mg Tablet, 20 MG PO QODAY for GI Ulcers, (Reported) Take at bedtime every other day. Next dose: 09/22/2019 Entered as Reported by: HANDY MARTINEZ on 09/21/19 1009 Last Action: Continued on 12/30/19944 by KEILY COLE Hydralazine Hcl (Hydralazine Hcl) 25 Mg Tablet, 37.5 MG PO TID for Hypertension, (Reported) Entered as Reported by: HANDY MARTINEZ on 09/21/19 1011 Last Action: Continued on 12/30/19944 by KEILY COLE Insulin NPH Human Isophane (Novolin N Flexpen) 100 Unit/1 Ml Insuln.pen, 10 UNIT SQ BID for DM, (Reported) Entered as Reported by: ANTONIO DUKES RN on 09/13/19 1802 Last Action: Converted on 12/30/19944 by KEILY COLE Isosorb Dinit/Hydralazine Hcl (Bidil Tablet) 1 Each Tablet, 1 EACH PO HS for cardiac, (Reported) Entered as Reported by: SABINA DIAZ on 12/29/191642 Last Action: New Order on 12/29/191642 by SABINA DIAZ Isosorb Dinit/Hydralazine Hcl (Bidil Tablet) 1 Each Tablet, 1 EACH PO SuMoWeFr for cardiac, (Reported) Entered as Reported by: SABINA DIAZ on 12/29/191642 Last Action: New Order on 12/29/191642 by SABINA DIAZ Isosorbide Dinitrate (Isosorbide Dinitrate) 30 Mg Tablet, 20 MG PO TID for Angina, (Reported) Entered as Reported by: HANDY MARTINEZ on 09/21/19 1011 Lisinopril (Lisinopril) 10 Mg Tablet, 1 TAB PO DAILY for Hypertension, #30 Ref 5 (Reported) Entered as Reported by: HANDY MARTINEZ on 09/21/19 1010 Last Action: Continued on 12/30/19944 by KEILY COLE Metoprolol Succinate (Metoprolol Succinate ( Xl )) 100 Mg Tab.er.24h, 1 TAB PO HS for cardiac, #30 Ref 5 (Reported) Entered as Reported by: SABINA DIAZ on 12/29/191642 Last Action: Continued on 12/30/19945 by KEILY COLE Sucralfate (Carafate) 1 Gm Tablet, 1 TAB PO QID for ulcers for 30 Days, #120 Ref 0 (Reported) Entered as Reported by: ANTONIO DUKES RN on 09/13/191801 Last Action: Continued on 12/30/19944 by KEILY COLE Vit B Cmplx 3/Fa/Vit C/Biotin (W[facility] Rx Tablet) 1 Each Tablet, 1 EACH PO DAILY for VITAMIN RENAL, (Reported) Entered as Reported by: SURAJ MATA on 01/10/192038 Last Action: Reviewed on 12/29/191642 by SABINA DIAZ Scheduled PRN Tramadol Hcl (Ultram) 50 Mg Tablet, 1 TAB PO PRN TID PRN for pain MDD 3 Tablet(s) for 30 Days, #30 Ref 0 Prescribed by: KEILY COLE on 01/03/20 1130 Discontinued Medications Aspirin (Aspirin) 81 Mg Tab.chew, 1 TAB PO HS for afib, #30 Ref 3 (Reported) Entered as Reported by: SABINA DIAZ on 12/29/191642 Last Action: HELD on 12/30/19945 by KEILY COLE Gabapentin (Gabapentin ) 300 Mg Capsule, 300 MG PO QTUTHSA for NEUROGENIC PAIN, (Reported) Take after dialysis Entered as Reported by: HANDY MARTINEZ on 09/21/19 1007 Last Action: Continued on 12/30/19944 by KEILY COLE Hydrocodone/Apap 5-325 ([place] 5-325 Tablet) 1 Each Tablet, 1 TAB PO Q6HRS for Pain, #90 (Reported) Entered as Reported by: ANTONIO DUKES, RN on 09/13/191801 Last Action: Continued on 12/30/19944 by KEILY COLE Patient Instructions Patient Instructions will need outpatient colonoscopy if able to tolerate, had strep bovis UTI, may have colon cancer, time > 30 min seen at dialysis, I tried to call Steve Marcos, her son to discuss Justicifation of Admission Dx: Justifications for Admission: Justification of Admission Dx: Yes (ams, renal failure) KEILY COLE MD Jan 03, 2020 11:35
--- NOTE | 2020-01-03 13:01 | PDOC2 ---
GI CONSULT Reason For Consult: strep bovis uti HPI: HPI: 74 y/o female w/ dementia. No meaningful history from her - does deny pain but will not/cannot answer further questions. Seen during dialysis - nurse there says she mostly nods in response to questions. Here w/ encephalopathy and strep bovis UTI. No GI concerns per nurse. Says hospitalist attempted to reach son, no answer. Per ID note, E coli. and Strep bovis UTI from 12/27/19. Plans to DC today. H/o AVR, A Fib, CAD on Eliquis and ASA. Also getting famotidine here. PMH: PMH: AVR, CAD, CHF, A Fib, HTN, COPD, cognitive deficit, ESRD on HD, DM, HLD hysterectomy, LUE AV graft FH: Family History: Other (unable to obtain) Social History: Smoke: Quit ROS: Denies pain, see HPI. Vitals: Vitals: Vital Signs Date Time Temp Pulse Resp B/P (MAP) Pulse Ox O2 Delivery O2 Flow Rate FiO2 01/03/20 08:01 99 Nasal Cannula 2.0 01/03/20 07:00 97.6 68 18 158/94 (115) 97.6 Labs: Labs: Laboratory Tests Test 01/02/20 16:10 01/02/20 20:57 01/03/20 04:25 01/03/20 06:50 Glucose (Fingerstick) 111 mg/dL (70-99) 156 mg/dL (70-99) 105 mg/dL (70-99) Sodium Level 133 mmol/L (136-145) Potassium Level 4.3 mmol/L (3.5-5.1) Chloride Level 96 mmol/L (98-107) Carbon Dioxide Level 26 mmol/L (21-32) Anion Gap 11 (6-14) Blood Urea Nitrogen 48 mg/dL (7-20) Creatinine 3.3 mg/dL (0.6-1.0) Estimated GFR (Cockcroft-Gault) 16.6 Glucose Level 117 mg/dL (70-99) Calcium Level 8.4 mg/dL (8.5-10.1) URINE CULTURE Final Final >100,000 CFU/ML GRAM NEGATIVE RODS on 12/31/19 at 1434 FINAL ID= [ESCHERICHIA COLI] Allergies: Coded Allergies: warfarin (Verified Allergy, Intermediate, 01/13/19) Imaging: Imaging: CXR 12/30 IMPRESSION: Hazy bilateral airspace disease may relate to pulmonary edema. Superimposed infectious process is difficult to exclude. PE: GEN: dialyzing HEENT: Atraumatic, PERRL LUNGS: diminished HEART: irregular ABD: NABS, S/ND/NT EXTREMITY: No edema SKIN: No rashes, no jaundice NEURO/PSYCH: awake, does not verbalize A/P: A/P: Encephalopathy, UTI - E coli and Strep bovis Dementia, CAD, AVR, A Fib, ESRD on HD CRC screen - unclear -- Plans to DC today. D/w Dr. Freeman - recommends outpt colonoscopy. D/w Dr. Ferguson - can pursue outpt 'scopes - our office will contact son. D/w nurse. PEARL DELGADO Jan 03, 2020 13:01
[2020-01-03] MEDS: FAMOTIDINE 20 MG TABLET. PO SCH (14:21)
[2020-01-03] MEDS: ASPIRIN CHEWABLE 81 MG TABLET. PO SCH (14:22)
[2020-01-03] MEDS: CITALOPRAM 20 MG TABLET. PO SCH (14:22)
[2020-01-03] MEDS: LACTOBACILLUS RHAMNOSUS GG 1 CAPSULE. PO SCH (14:22)
[2020-01-03 14:41] VITALS: BP 124/100
--- NOTE | 2020-01-03 14:53 | PDOC ---
CORNELIUS CINTRON [employer] 01/03/20 1453: CARDIO Progress Notes Date and Time Date of Service 01/03/20 Time of Evaluation 1110 Subjective Subjective: Other (non-verbal ) Vitals Vitals Vital Signs Date Time Temp Pulse Resp B/P (MAP) Pulse Ox O2 Delivery O2 Flow Rate FiO2 01/03/20 14:41 97.8 71 18 124/100 (108) 100 Nasal Cannula 2.0 97.8 Weight Weight [ ] Input and Output Intake and Output Intake and Output 01/03/20 07:00 Intake Total 460 ml Balance 460 ml Intake Oral 460 ml # Voids 4 Laboratory Labs Laboratory Tests Test 01/02/20 16:10 01/02/20 20:57 01/03/20 04:25 01/03/20 06:50 Glucose (Fingerstick) 111 mg/dL (70-99) 156 mg/dL (70-99) 105 mg/dL (70-99) Sodium Level 133 mmol/L (136-145) Potassium Level 4.3 mmol/L (3.5-5.1) Chloride Level 96 mmol/L (98-107) Carbon Dioxide Level 26 mmol/L (21-32) Anion Gap 11 (6-14) Blood Urea Nitrogen 48 mg/dL (-20) Creatinine 3.3 mg/dL (0.6-1.0) Estimated GFR (Cockcroft-Gault) 16.6 Glucose Level 117 mg/dL (70-99) Calcium Level 8.4 mg/dL (8.5-10.1) Microbiology Micro Microbiology 12/29/19 Urine Culture - Final, Complete 12/29/19 Antimicrobic Susceptibility - Final, Complete Physical Exam HEENT: Neck Supple W Full Motion Chest: Symmetric LUNGS: Other (diminished bases ) Heart: other (heart tones irregular, not on tele) Neurology: alert, non-verbal Assessment Assessment 1. Permanent AFIB, rate controlled per VS review. Not on tele. Eliquis held due to encephalopathy, fall risk 2. Metabolic encephalopathy secondary to UTI. 3. Chronic systolic heart failure, clinically well compensated. LVEF 40 to 45%. 4. CAD: 01/21/2019 C mild to moderate LAD/LCx disease, occluded RCA with patent SVG graft. Clinically stable 5. Bioprosthetic AVR: Clinically stable 6. HTN; labile 7. ESRD on HD 8. COPD, stable 9. DM2/HLP: statin Recommendations Continue metoprolol for rate control ASA for stroke prophylaxis. Fluid offloading via HD. Supportive care Okay to discharge from a CV standpoint Justicifation of Admission Dx: Justifications for Admission: Justification of Admission Dx: Yes (ams, renal failure) MURPHY MICHAEL MD 01/03/20 1548: CORNELIUS CINTRON APRN Jan 03, 2020 14:53 MURPHY MICHAEL MD Jan 03, 2020 15:48
--- NOTE | 2020-01-03 16:00 | NUR ---
Discharge Note: LC [facility] Discharge instructions and discharge home medications reviewed Medical Chelsea RN and a copy given. All questions have been answered and understanding verbalized. Discontinued lines and drains: Peripheral IV intact. Patient [facility] to [facility] with transportation via [facility]
== END 2020-01-03 16:30 | DRG 70 ==
LOC: ER 11:20 → 2 SOUTH 13:00 → ER 13:58
PROVIDERS: ADMIT Internal Medicine; ATTEND Internal Medicine
PROC: 5A1D70Z Performance of Urinary Filtration, Intermittent, Less than 6 Hours Per Day (ICD-10-PCS; 2019-12-29)
PROC: 5A1D70Z Performance of Urinary Filtration, Intermittent, Less than 6 Hours Per Day (ICD-10-PCS; 2019-12-31)
PROC: 5A1D70Z Performance of Urinary Filtration, Intermittent, Less than 6 Hours Per Day (ICD-10-PCS; principal; 2020-01-03)
DX: G93.41 Metabolic encephalopathy (principal); N18.6 End stage renal disease; N17.9 Acute kidney failure, unspecified; N39.0 Urinary tract infection, site not specified; I13.2 Hypertensive heart and chronic kidney disease with heart failure and with stage 5 chronic kidney disease, or end stage renal disease; I42.9 Cardiomyopathy, unspecified; I48.21 Permanent atrial fibrillation; I50.42 Chronic combined systolic (congestive) and diastolic (congestive) heart failure; Z16.11 Resistance to penicillins; E11.22 Type 2 diabetes mellitus with diabetic chronic kidney disease; E78.5 Hyperlipidemia, unspecified; F03.90 Unspecified dementia, unspecified severity, without behavioral disturbance, psychotic disturbance, mood disturbance, and anxiety; I25.10 Atherosclerotic heart disease of native coronary artery without angina pectoris; J44.9 Chronic obstructive pulmonary disease, unspecified; R09.02 Hypoxemia; F32.9 Major depressive disorder, single episode, unspecified; F41.9 Anxiety disorder, unspecified; M19.90 Unspecified osteoarthritis, unspecified site; Z20.828 Contact with and (suspected) exposure to other viral communicable diseases; R41.89 Other symptoms and signs involving cognitive functions and awareness; Z79.01 Long term (current) use of anticoagulants; Z82.49 Family history of ischemic heart disease and other diseases of the circulatory system; Z83.3 Family history of diabetes mellitus; Z86.73 Personal history of transient ischemic attack (TIA), and cerebral infarction without residual deficits; Z87.440 Personal history of urinary (tract) infections; Z87.891 Personal history of nicotine dependence; Z90.710 Acquired absence of both cervix and uterus; Z91.81 History of falling; Z95.1 Presence of aortocoronary bypass graft; Z95.3 Presence of xenogenic heart valve; Z99.2 Dependence on renal dialysis; Z88.8 Allergy status to other drugs, medicaments and biological substances; B96.20 Unspecified Escherichia coli [E. coli] as the cause of diseases classified elsewhere
CPT/HCPCS: 36415; 71045; 80048; 80053; 81001; 82962; 83880; 84484; 85025; 85610; 87077; 87086; 87186; 93005; 94640; 94760; 96374; 99285; J0696; J1815; J3490; 92526-GN; 92610-GN; G0378; J7613; J7626; U0003-CS